=== PATIENT | male | born 1950 | race Caucasian/White ===

== ENCOUNTER → 2016-03-13 | Outpatient (CLI) | payer MEDICARE, MEDICAID ==
[2016-03-13 13:05] LABS: BASO % 0.6 % (0.0-1.0); EOS # 0.4 K/mm3 (0.0-0.50); EOS % 6.6 % (0.0-3.0); LARGE UNSTAINED CELL # 0.1 K/mm3 (0.0-0.4); LARGE UNSTAINED CELL % 2.2 % (0.0-4.0); LYMPH # 1.8 K/mm3 (1.5-4.5); MEAN CORPUSCULAR HEMOGLOBIN 26.5 pg (27.0-33.0); MEAN CORPUSCULAR HGB CONC 31.5 g/dl (32.0-36.5); MEAN CORPUSCULAR VOLUME 84.1 fl (80.0-96.0); MONO # 0.4 K/mm3 (0.0-0.8); MONO % 6.9 % (0.0-5.0); NEUTROPHILS # 3.5 K/mm3 (1.8-7.7); NEUTROPHILS % 56.6 % (36.0-66.0); PLATELET COUNT, AUTOMATED 204 k/mm3 (150-450); RED CELL DISTRIBUTION WIDTH 13.8 % (11.5-14.5); WHITE BLOOD COUNT 6.2 K/mm3 (4.0-10.0)
[2016-03-13 13:15] LABS: ALBUMIN 3.9 GM/DL (3.2-5.2); ALKALINE PHOSPHATASE 80 U/L (45-117); ALT/SGPT 35 U/L (12-78); ANION GAP 9 MEQ/L (8-16); AST/SGOT 23 U/L (15-37); BILIRUBIN,TOTAL 0.7 MG/DL (0.2-1.0); BLOOD UREA NITROGEN 9 MG/DL (7-18); CALCIUM LEVEL 8.7 MG/DL (8.8-10.2); CARBON DIOXIDE LEVEL 31 MEQ/L (21-32); CHLORIDE LEVEL 103 MEQ/L (98-107); CREATININE FOR GFR 1.02 MG/DL (0.70-1.30); FERRITIN 227 NG/ML (26-388); GLOMERULAR FILTRATION RATE > 60.0 (>49); GLUCOSE, FASTING 88 MG/DL (80-110); PERCENT SATURATION 30.7 % (19.7-37.4); POTASSIUM SERUM 4.7 MEQ/L (3.5-5.1); SODIUM LEVEL 143 MEQ/L (136-145); TOTAL IRON BINDING CAPACITY 316 UG/DL (250-450); TOTAL PROTEIN 6.5 GM/DL (6.4-8.2)
== END | disposition home or self-care (01) ==
LOC: M WUC 10:26
PROVIDERS: ATTEND Family Medicine
DX: N18.2 Chronic kidney disease, stage 2 (mild) (principal); Z12.5 Encounter for screening for malignant neoplasm of prostate; D50.9 Iron deficiency anemia, unspecified
CPT/HCPCS: 36415; 80053; 82728; 83550; 85025; G0103

== ENCOUNTER → 2016-05-01 | Outpatient (CLI) | payer MEDICARE, MEDICAID ==
[2016-05-01 13:22] LABS: ALBUMIN 3.8 GM/DL (3.2-5.2); ALBUMIN/GLOBULIN RATIO 1.36 (1.00-1.93); ALKALINE PHOSPHATASE 85 U/L (45-117); ALT/SGPT 36 U/L (12-78); ANION GAP 5 MEQ/L (8-16); AST/SGOT 23 U/L (15-37); BILIRUBIN,TOTAL 0.7 MG/DL (0.2-1.0); BLOOD UREA NITROGEN 18 MG/DL (7-18); CALCIUM LEVEL 9.1 MG/DL (8.8-10.2); CARBON DIOXIDE LEVEL 31 MEQ/L (21-32); CHLORIDE LEVEL 105 MEQ/L (98-107); CHOLESTEROL LEVEL 137 MG/DL (<200); CREATININE FOR GFR 1.25 MG/DL (0.70-1.30); FERRITIN 247 NG/ML (26-388); GLOMERULAR FILTRATION RATE > 60.0 (>49); GLUCOSE, FASTING 99 MG/DL (80-110); PERCENT SATURATION 29.6 % (19.7-37.4); POTASSIUM SERUM 4.6 MEQ/L (3.5-5.1); SODIUM LEVEL 141 MEQ/L (136-145); TOTAL IRON BINDING CAPACITY 311 UG/DL (250-450); TOTAL PROTEIN 6.6 GM/DL (6.4-8.2); TRIGLYCERIDES LEVEL 72 MG/DL (<150)
[2016-05-01 13:23] LABS: BASO % 0.4 % (0.0-1.0); EOS # 0.4 K/mm3 (0.0-0.50); EOS % 7.2 % (0.0-3.0); LARGE UNSTAINED CELL # 0.1 K/mm3 (0.0-0.4); LARGE UNSTAINED CELL % 1.9 % (0.0-4.0); LYMPH # 1.5 K/mm3 (1.5-4.5); LYMPH % 25.3 % (24.0-44.0); MEAN CORPUSCULAR HEMOGLOBIN 26.5 pg (27.0-33.0); MEAN CORPUSCULAR HGB CONC 31.1 g/dl (32.0-36.5); MEAN CORPUSCULAR VOLUME 85.3 fl (80.0-96.0); MONO # 0.4 K/mm3 (0.0-0.8); MONO % 7.2 % (0.0-5.0); NEUTROPHILS # 3.5 K/mm3 (1.8-7.7); PLATELET COUNT, AUTOMATED 242 k/mm3 (150-450); RED CELL DISTRIBUTION WIDTH 14.1 % (11.5-14.5); WHITE BLOOD COUNT 6.1 K/mm3 (4.0-10.0)
== END ==
LOC: M WUC 09:52
PROVIDERS: ATTEND Family Medicine
DX: D50.9 Iron deficiency anemia, unspecified (principal); I10 Essential (primary) hypertension; R73.01 Impaired fasting glucose; E55.9 Vitamin D deficiency, unspecified

== ENCOUNTER → 2016-05-12 | Outpatient (CLI) | payer MEDICARE, MEDICAID ==
--- NOTE | 2016-05-17 14:12 | SLEEPHOME ---
DATE OF PROCEDURE: 05/12/2016 ORDERING PROVIDER: Dr. Fitzgerald Diagnostic home sleep testing was performed for evaluation of sleep apnea syndrome symptoms. For testing, a NOX-T3 respiratory monitoring device was used. Continuous record was made of pulse oxygen saturation, airflow, chest and abdominal strain, and body position. 10 hours and 17 minutes of data were reviewed. Of these, 8 hours and 14 minutes were marked as time in bed. During the interval marked time in bed, there were 42 respiratory events identified of 10 seconds in duration or greater for a respiratory disturbance index of 5.1. The events identified were primarily obstructive. Baseline pulse rate 53. Pulse rate ranged 47 to 73. Baseline saturation was 89%. Lowest oxygen saturation was 82%. Testing was performed in both the supine and nonsupine positions. IMPRESSION: Abnormal home sleep testing with repetitive respiratory events and oxygen desaturations to 82% with a respiratory event index of 5.1 is consistent with the obstructive sleep apnea syndrome. RECOMMENDATION: The respiratory events identified were seen more frequently in the supine posture and sleep position retraining for avoidance of the supine posture would seem reasonable. If symptoms persist, referral back to the sleep disorder center for formal pressure titration should be considered.
== END ==
LOC: M SLEEP HO 05-10 13:05
PROVIDERS: ATTEND Family Medicine
DX: G47.9 Sleep disorder, unspecified (principal)

== ENCOUNTER → 2016-09-27 | Outpatient (CLI) | payer MEDICARE, MEDICAID ==
[~2016-09-27] MED LIST: AMLO10TA2 PO; ARTI99.0 OU; ATOR40TA75 PO; BENA40TA7 PO; BIMA01SOL OU; BRIMONIDINE 2% OU; CARA1TAB6 PO; DEXI60CA2 PO; ELIQ5TAB PO; FERR325T3 PO; FLEC50TA PO; FLUT22IN INH; FLUTISP; VENTAER IN; VITA100067 PO; ZETI10TA30 PO; [UNRECOGNIZED DRUG - OTHER] PO
[2016-09-27 14:09] LABS: BASO % 0.4 % (0.0-1.0); EOS # 0.4 K/mm3 (0.0-0.50); EOS % 7.1 % (0.0-3.0); LARGE UNSTAINED CELL # 0.1 K/mm3 (0.0-0.4); LARGE UNSTAINED CELL % 1.4 % (0.0-4.0); LYMPH # 1.5 K/mm3 (1.5-4.5); LYMPH % 23.9 % (24.0-44.0); MEAN CORPUSCULAR HEMOGLOBIN 27.2 pg (27.0-33.0); MEAN CORPUSCULAR HGB CONC 31.7 g/dl (32.0-36.5); MEAN CORPUSCULAR VOLUME 85.9 fl (80.0-96.0); MONO # 0.4 K/mm3 (0.0-0.8); MONO % 7.3 % (0.0-5.0); NEUTROPHILS # 3.6 K/mm3 (1.8-7.7); NEUTROPHILS % 59.7 % (36.0-66.0); PLATELET COUNT, AUTOMATED 233 k/mm3 (150-450); RED CELL DISTRIBUTION WIDTH 13.6 % (11.5-14.5)
[2016-09-27 14:47] LABS: ALBUMIN 3.6 GM/DL (3.2-5.2); ALBUMIN/GLOBULIN RATIO 1.29 (1.00-1.93); ALKALINE PHOSPHATASE 74 U/L (45-117); ALT/SGPT 26 U/L (12-78); ANION GAP 8 MEQ/L (8-16); AST/SGOT 19 U/L (15-37); BILIRUBIN,TOTAL 0.7 MG/DL (0.2-1.0); BLOOD UREA NITROGEN 10 MG/DL (7-18); CALCIUM LEVEL 8.4 MG/DL (8.8-10.2); CARBON DIOXIDE LEVEL 28 MEQ/L (21-32); CHLORIDE LEVEL 106 MEQ/L (98-107); CREATININE FOR GFR 0.96 MG/DL (0.70-1.30); FERRITIN 236 NG/ML (26-388); GLOMERULAR FILTRATION RATE > 60.0 (>49); GLUCOSE, FASTING 84 MG/DL (80-110); MAGNESIUM LEVEL 2.4 MG/DL (1.8-2.4); PERCENT SATURATION 31.1 % (19.7-50.0); POTASSIUM SERUM 4.4 MEQ/L (3.5-5.1); SODIUM LEVEL 142 MEQ/L (136-145); TOTAL IRON BINDING CAPACITY 286 UG/DL (250-450); TOTAL PROTEIN 6.4 GM/DL (6.4-8.2)
== END ==
LOC: M WUC 10:46
PROVIDERS: ATTEND Family Medicine
DX: D50.9 Iron deficiency anemia, unspecified (principal); I10 Essential (primary) hypertension

== ENCOUNTER → 2017-01-27 | Outpatient (CLI) | payer MEDICARE, MEDICAID ==
[2017-01-27 17:08] LABS: BASO # 0.1 10^3/uL (0.0-0.2); BASO % 0.8 % (0.0-1.0); EOS # 0.4 10^3/uL (0.0-0.50); EOS % 7.3 % (0.0-3.0); IMMATURE GRANULOCYTE % 0.3 % (0-0); LYMPH # 1.6 10^3/uL (1.5-4.5); LYMPH % 25.6 % (24.0-44.0); MEAN CORPUSCULAR HEMOGLOBIN 26.3 pg (27.0-33.0); MEAN CORPUSCULAR HGB CONC 31.3 g/dl (32.0-36.5); MEAN CORPUSCULAR VOLUME 84.1 fl (80.0-96.0); MONO # 0.7 10^3/uL (0.0-0.8); MONO % 11.2 % (0.0-5.0); NEUTROPHILS # 3.3 10^3/uL (1.8-7.7); NEUTROPHILS % 54.8 % (36.0-66.0); PLATELET COUNT, AUTOMATED 245 10^3/uL (150-450); WHITE BLOOD COUNT 6.1 10^3/uL (4.0-10.0)
[2017-01-27 17:21] LABS: ALBUMIN 3.8 GM/DL (3.2-5.2); ALBUMIN/GLOBULIN RATIO 1.41 (1.00-1.93); ALKALINE PHOSPHATASE 75 U/L (45-117); ALT/SGPT 33 U/L (12-78); ANION GAP 5 MEQ/L (8-16); AST/SGOT 23 U/L (7-37); BILIRUBIN,TOTAL 0.5 MG/DL (0.2-1.0); BLOOD UREA NITROGEN 12 MG/DL (7-18); CALCIUM LEVEL 8.4 MG/DL (8.8-10.2); CARBON DIOXIDE LEVEL 31 MEQ/L (21-32); CHLORIDE LEVEL 106 MEQ/L (98-107); CHOLESTEROL LEVEL 127 MG/DL (<200); CREATININE FOR GFR 0.97 MG/DL (0.70-1.30); FERRITIN 217 NG/ML (26-388); FREE T4 0.78 NG/DL (0.76-1.46); GLOMERULAR FILTRATION RATE > 60.0 (>49); GLUCOSE, FASTING 91 MG/DL (80-110); PERCENT SATURATION 33.6 % (19.7-50.0); POTASSIUM SERUM 4.7 MEQ/L (3.5-5.1); SODIUM LEVEL 142 MEQ/L (136-145); TOTAL IRON BINDING CAPACITY 298 UG/DL (250-450); TOTAL PROTEIN 6.5 GM/DL (6.4-8.2); TRIGLYCERIDES LEVEL 59 MG/DL (<150)
[2017-01-30 09:28] LABS: VITAMIN B12 LEVEL 378 PG/ML (247-911)
== END ==
LOC: M WUC 10:32
PROVIDERS: ATTEND Family Medicine
DX: D50.9 Iron deficiency anemia, unspecified (principal); E55.9 Vitamin D deficiency, unspecified; E78.5 Hyperlipidemia, unspecified

== ENCOUNTER → 2017-02-08 | Outpatient (REF) | payer MEDICARE, MEDICAID | LOC: M SFHCPLAZ 09:50 | DX: D50.9 Iron deficiency anemia, unspecified (principal); R73.01 Impaired fasting glucose; Z12.5 Encounter for screening for malignant neoplasm of prostate ==

== ENCOUNTER → 2017-02-14 | Outpatient (CLI) | payer MEDICARE, MEDICAID | LOC: M RAD 13:27 | DX: R51 Headache (principal); J32.9 Chronic sinusitis, unspecified; I73.9 Peripheral vascular disease, unspecified | CPT/HCPCS: 70450 ==

== ENCOUNTER → 2017-03-06 | Outpatient (CLI) | payer MEDICARE, MEDICAID ==
[2017-03-06 17:14] LABS: ALBUMIN 3.9 GM/DL (3.2-5.2); ALKALINE PHOSPHATASE 89 U/L (45-117); ALT/SGPT 34 U/L (12-78); ANION GAP 5 MEQ/L (8-16); AST/SGOT 26 U/L (7-37); BILIRUBIN,TOTAL 0.6 MG/DL (0.2-1.0); BLOOD UREA NITROGEN 13 MG/DL (7-18); CALCIUM LEVEL 8.5 MG/DL (8.8-10.2); CARBON DIOXIDE LEVEL 29 MEQ/L (21-32); CHLORIDE LEVEL 108 MEQ/L (98-107); CREATININE FOR GFR 0.98 MG/DL (0.70-1.30); FREE T4 0.89 NG/DL (0.76-1.46); GLOMERULAR FILTRATION RATE > 60.0 (>49); GLUCOSE, FASTING 93 MG/DL (70-100); MAGNESIUM LEVEL 2.3 MG/DL (1.8-2.4); POTASSIUM SERUM 4.3 MEQ/L (3.5-5.1); SODIUM LEVEL 142 MEQ/L (136-145); TOTAL PROTEIN 6.9 GM/DL (6.4-8.2)
[2017-03-06 17:26] LABS: INR 1.22; PROTHROMBIN TIME 15.6 SECONDS (12.4-14.5)
[2017-03-06 17:27] LABS: PARTIAL THROMBOPLASTIN TIME 36.5 SECONDS (26.8-37.9)
[2017-03-06 17:52] LABS: BASO # 0.1 10^3/uL (0.0-0.2); BASO % 0.7 % (0.0-1.0); EOS # 0.5 10^3/uL (0.0-0.50); EOS % 6.6 % (0.0-3.0); HEMOGLOBIN 13.8 g/dl (14.0-18.0); IMMATURE GRANULOCYTE % 0.1 % (0-0); LYMPH # 1.6 10^3/uL (1.5-4.5); LYMPH % 22.3 % (24.0-44.0); MEAN CORPUSCULAR HEMOGLOBIN 26.6 pg (27.0-33.0); MEAN CORPUSCULAR HGB CONC 31.4 g/dl (32.0-36.5); MEAN CORPUSCULAR VOLUME 84.9 fl (80.0-96.0); MONO # 0.8 10^3/uL (0.0-0.8); MONO % 10.5 % (0.0-5.0); NEUTROPHILS # 4.3 10^3/uL (1.8-7.7); NEUTROPHILS % 59.8 % (36.0-66.0); PLATELET COUNT, AUTOMATED 240 10^3/uL (150-450); RED BLOOD COUNT 5.18 10^6/uL (4.30-6.10); RED CELL DISTRIBUTION WIDTH 14.6 % (11.5-14.5); WHITE BLOOD COUNT 7.3 10^3/uL (4.0-10.0)
== END ==
LOC: M WUC 11:46
DX: Z01.818 Encounter for other preprocedural examination (principal); Z79.01 Long term (current) use of anticoagulants; E03.9 Hypothyroidism, unspecified
CPT/HCPCS: 83735

== ENCOUNTER 2017-03-14 09:31 | Day surgery (SDC) | payer MEDICARE, MEDICAID ==
[~2017-03-14 09:31] MED LIST changes: +ACETAMINOPHEN 325 MG TAB PO; -AMLO10TA2 PO; -ARTI99.0 OU; -ATOR40TA75 PO; -BENA40TA7 PO; -BIMA01SOL OU; -BRIMONIDINE 2% OU; -CARA1TAB6 PO; -DEXI60CA2 PO; -ELIQ5TAB PO; -FERR325T3 PO; -FLEC50TA PO; -FLUT22IN INH; -FLUTISP; +MIDAZOLAM INJ 2 MG/2 ML VIAL (J2250) As Ordered; +PROPARACAINE 0.5% OPHTH SOL 15ML OS; -VENTAER IN; -VITA100067 PO; -ZETI10TA30 PO; -[UNRECOGNIZED DRUG - OTHER] PO; +fentaNYL 100 MCG/2 ML INJECTION (J3010) As Ordered
[2017-03-14] MEDS ORDERED: LIDOCAINE 1% MDV 20ML VIAL SQ ×2 (09:45)
[2017-03-14] MEDS ORDERED: OFLOXACIN 0.3 % (OCUFLOX) OPTH SOL 5ML As Ordered ×2 (09:59)
[2017-03-14] MEDS ORDERED: TROPICAMIDE 1% OPHTH SOLN 2ML As Ordered ×2 (09:59)
[2017-03-14] MEDS ORDERED: PHENYLEPHRINE 2.5% OPHTH SOL 2ML As Ordered ×2 (09:59)
[2017-03-14] MEDS ORDERED: CYCLOPENTOLATE 2% OPHTH SOLN 2ML BTL As Ordered ×2 (09:59)
[2017-03-14] MEDS: LIDOCAINE 3.5 % 1ML OPHTH TOPICAL GEL OU ×2 (10:10)
[2017-03-14] MEDS: OFLOXACIN 0.3 % (OCUFLOX) OPTH SOL 5ML OS ×2 (10:13)
[2017-03-14] MEDS: CYCLOPENTOLATE 2% OPHTH SOLN 2ML BTL OS ×2 (10:13)
[2017-03-14] MEDS: PHENYLEPHRINE 2.5% OPHTH SOL 2ML OS ×2 (10:13)
[2017-03-14] MEDS: TROPICAMIDE 1% OPHTH SOLN 2ML OS ×2 (10:13)
[2017-03-14] MEDS: PHENYLEPHRINE HCL 10 % OPHTH. SOL 5ML OS ×2 (10:50)
[2017-03-14 10:53] LABS: BEDSIDE GLUCOSE 88 MG/DL (80-115)
[2017-03-14] MEDS: POVIDONE-IODINE 5% OPHTH PREP SOL 30ML As Ordered ×2 (11:56)
[2017-03-14] MEDS: LIDOCAINE 1% SDV 5 ML VIAL As Ordered ×2 (11:57)
[2017-03-14] MEDS: ACETYLCHOLINE OPHTH SOLN 1% 2ML (MIOCHOL-E) As Ordered ×2 (11:57)
[2017-03-14] MEDS: CEFUROXIME 1MG/0.1ML INTRACAMERAL INJ As Ordered ×2 (11:57)
[2017-03-14] MEDS: BSS with VANC/TOB/EPI for EYE CASES IR ×2 (11:57)
[2017-03-14] MEDS: HEALON DUET (HEALON 10MG/ML 0.55ML & HEALON ENDOCOAT 30MG/ML 0.85ML) As Ordered ×2 (11:57)
[2017-03-14] MEDS ORDERED: ONDANSETRON 4MG/2ML VIAL (J2405) As Ordered ×2 (12:08)
[2017-03-14] MEDS ORDERED: dexameTHASONE 4 MG/ML 1ML VIAL (J1100) As Ordered ×2 (12:08)
[2017-03-14] MEDS ORDERED: METOCLOPRAMIDE INJ 10MG/2ML VIAL (J2765) As Ordered ×2 (12:08)
[2017-03-14] MEDS ORDERED: TRIMETHOBENZAMIDE 300 MG CAP PO ×2 (12:45)
[2017-03-14 13:04] LABS: BEDSIDE GLUCOSE 101 MG/DL (80-115)
[2017-03-14] MEDS: KETOROLAC 0.5% OPHTH SOLN OS ×2 (13:10)
== END 2017-03-14 14:00 | disposition home or self-care (01) ==
LOC: M SDC 09:31
DX: H26.9 Unspecified cataract (principal); H57.03 Miosis; H40.9 Unspecified glaucoma; R00.2 Palpitations; I12.9 Hypertensive chronic kidney disease with stage 1 through stage 4 chronic kidney disease, or unspecified chronic kidney disease; I48.91 Unspecified atrial fibrillation; G25.0 Essential tremor; E55.9 Vitamin D deficiency, unspecified; E78.5 Hyperlipidemia, unspecified; R00.1 Bradycardia, unspecified; E11.9 Type 2 diabetes mellitus without complications; K21.9 Gastro-esophageal reflux disease without esophagitis; D50.9 Iron deficiency anemia, unspecified; M12.9 Arthropathy, unspecified; M50.20 Other cervical disc displacement, unspecified cervical region; M51.26 Other intervertebral disc displacement, lumbar region; R51 Headache; J44.9 Chronic obstructive pulmonary disease, unspecified; G47.30 Sleep apnea, unspecified; N40.1 Benign prostatic hyperplasia with lower urinary tract symptoms; N28.1 Cyst of kidney, acquired; J30.89 Other allergic rhinitis; N18.2 Chronic kidney disease, stage 2 (mild); T88.59XD Other complications of anesthesia, subsequent encounter; J32.9 Chronic sinusitis, unspecified; L30.9 Dermatitis, unspecified; Z88.2 Allergy status to sulfonamides; Z88.5 Allergy status to narcotic agent; Z88.8 Allergy status to other drugs, medicaments and biological substances; Z91.018 Allergy to other foods; Z79.899 Other long term (current) drug therapy; Z79.01 Long term (current) use of anticoagulants; Z87.891 Personal history of nicotine dependence
CPT/HCPCS: 66982

== ENCOUNTER → 2017-06-07 | Outpatient (CLI) | payer MEDICARE, MEDICAID ==
[2017-06-07 13:34] LABS: BASO # 0.1 10^3/uL (0.0-0.2); BASO % 0.9 % (0.0-1.0); EOS # 0.4 10^3/uL (0.0-0.50); EOS % 8.2 % (0.0-3.0); HEMATOCRIT 40.6 % (42.0-52.0); HEMOGLOBIN 12.8 g/dl (13.5-17.5); IMMATURE GRANULOCYTE % 0.2 % (0-3.0); LYMPH # 1.4 10^3/uL (1.5-4.5); LYMPH % 27.3 % (24.0-44.0); MEAN CORPUSCULAR HEMOGLOBIN 26.8 pg (27.0-33.0); MEAN CORPUSCULAR HGB CONC 31.5 g/dl (32.0-36.5); MEAN CORPUSCULAR VOLUME 84.9 fl (80.0-96.0); MONO # 0.7 10^3/uL (0.0-0.8); MONO % 12.5 % (0.0-5.0); NEUTROPHILS # 2.7 10^3/uL (1.8-7.7); NEUTROPHILS % 50.9 % (36.0-66.0); PLATELET COUNT, AUTOMATED 220 10^3/uL (150-450); RED BLOOD COUNT 4.78 10^6/uL (4.30-6.10); RED CELL DISTRIBUTION WIDTH 14.3 % (11.5-14.5); RETIC HEMOGLOBIN EQUIVALENT 30.3 pg (24-36); RETICULOCYTE # 55.9 10^9/L (17-77); RETICULOCYTE % 1.2 % (0.5-1.5); WHITE BLOOD COUNT 5.3 10^3/uL (4.0-10.0)
[2017-06-07 14:15] LABS: ALBUMIN 3.6 GM/DL (3.2-5.2); ALBUMIN/GLOBULIN RATIO 1.24 (1.00-1.93); ALKALINE PHOSPHATASE 82 U/L (45-117); ALT/SGPT 25 U/L (12-78); ANION GAP 4 MEQ/L (8-16); AST/SGOT 19 U/L (7-37); BILIRUBIN,TOTAL 0.6 MG/DL (0.2-1.0); BLOOD UREA NITROGEN 16 MG/DL (7-18); CALCIUM LEVEL 8.4 MG/DL (8.8-10.2); CARBON DIOXIDE LEVEL 29 MEQ/L (21-32); CHLORIDE LEVEL 108 MEQ/L (98-107); CREATININE FOR GFR 0.98 MG/DL (0.70-1.30); GLOMERULAR FILTRATION RATE > 60.0 (>49); GLUCOSE, FASTING 96 MG/DL (70-100); MAGNESIUM LEVEL 2.2 MG/DL (1.8-2.4); POTASSIUM SERUM 4.4 MEQ/L (3.5-5.1); PSA SCREENING 2.31 NG/ML (< 4.0); SODIUM LEVEL 141 MEQ/L (136-145); TOTAL PROTEIN 6.5 GM/DL (6.4-8.2)
[2017-06-07 14:16] LABS: ESTIMATED AVERAGE GLUCOSE 117 MG/DL (60-110); HEMOGLOBIN A1c 5.7 %
[2017-06-08 14:13] LABS: INSULIN LEVEL 6.5 uIU/mL (2.6-24.9)
== END ==
LOC: M WUC 10:13
DX: D50.9 Iron deficiency anemia, unspecified (principal); R73.01 Impaired fasting glucose; Z12.5 Encounter for screening for malignant neoplasm of prostate
CPT/HCPCS: 83525

== ENCOUNTER → 2017-08-28 | Outpatient (CLI) | payer MEDICARE, MEDICAID ==
[2017-08-28 12:09] LABS: BASO % 0.6 % (0.0-1.0); EOS # 0.5 10^3/uL (0.0-0.50); EOS % 7.3 % (0.0-3.0); HEMATOCRIT 42.7 % (42.0-52.0); HEMOGLOBIN 13.3 g/dl (13.5-17.5); IMMATURE GRANULOCYTE % 0.2 % (0-3.0); LYMPH # 1.4 10^3/uL (1.5-4.5); LYMPH % 23.2 % (24.0-44.0); MEAN CORPUSCULAR HEMOGLOBIN 26.8 pg (27.0-33.0); MEAN CORPUSCULAR HGB CONC 31.1 g/dl (32.0-36.5); MEAN CORPUSCULAR VOLUME 85.9 fl (80.0-96.0); MONO # 0.8 10^3/uL (0.0-0.8); MONO % 12.3 % (0.0-5.0); NEUTROPHILS # 3.5 10^3/uL (1.8-7.7); NEUTROPHILS % 56.4 % (36.0-66.0); PLATELET COUNT, AUTOMATED 250 10^3/uL (150-450); RED BLOOD COUNT 4.97 10^6/uL (4.30-6.10); RED CELL DISTRIBUTION WIDTH 14.4 % (11.5-14.5); RETIC HEMOGLOBIN EQUIVALENT 30.9 pg (24-36); RETICULOCYTE # 56.2 10^9/L (17-77); RETICULOCYTE % 1.1 % (0.5-1.5); WHITE BLOOD COUNT 6.2 10^3/uL (4.0-10.0)
[2017-08-28 13:11] LABS: ALBUMIN 3.5 GM/DL (3.2-5.2); ALBUMIN/GLOBULIN RATIO 1.25 (1.00-1.93); ALKALINE PHOSPHATASE 89 U/L (45-117); ALT/SGPT 28 U/L (12-78); ANION GAP 7 MEQ/L (8-16); AST/SGOT 14 U/L (7-37); BILIRUBIN,TOTAL 0.5 MG/DL (0.2-1.0); BLOOD UREA NITROGEN 12 MG/DL (7-18); C REACTIVE PROTEIN QUANTITATIV < 0.30 MG/DL (0.00-0.30); CALCIUM LEVEL 8.6 MG/DL (8.8-10.2); CARBON DIOXIDE LEVEL 30 MEQ/L (21-32); CHLORIDE LEVEL 108 MEQ/L (98-107); CHOLESTEROL LEVEL 120 MG/DL (<200); CPK CREATINE PHOSPHOKINASE 109 U/L (39-308); CREATININE FOR GFR 1.11 MG/DL (0.70-1.30); FREE T4 0.76 NG/DL (0.76-1.46); GLOMERULAR FILTRATION RATE > 60.0 (>49); GLUCOSE, FASTING 84 MG/DL (70-100); HDL CHOLESTEROL 60 MG/DL (>40); LDL CHOLESTEROL 48.2 MG/DL (<100); NON-HDL-C 60 MG/DL; POTASSIUM SERUM 4.3 MEQ/L (3.5-5.1); SODIUM LEVEL 145 MEQ/L (136-145); TOTAL PROTEIN 6.3 GM/DL (6.4-8.2); TRIGLYCERIDES LEVEL 59 MG/DL (<150)
== END ==
LOC: M WUC 10:21
DX: D50.9 Iron deficiency anemia, unspecified (principal); E78.5 Hyperlipidemia, unspecified; I10 Essential (primary) hypertension
CPT/HCPCS: 82550

== ENCOUNTER → 2017-12-21 | Outpatient (CLI) | payer MEDICARE, MEDICAID ==
[2017-12-21 13:08] LABS: BASO % 0.6 % (0.0-1.0); EOS # 0.4 10^3/uL (0.0-0.50); EOS % 5.9 % (0.0-3.0); HEMATOCRIT 46.3 % (42.0-52.0); HEMOGLOBIN 14.5 g/dl (13.5-17.5); IMMATURE GRANULOCYTE % 0.3 % (0-3.0); LYMPH # 1.5 10^3/uL (1.5-4.5); LYMPH % 21.1 % (24.0-44.0); MEAN CORPUSCULAR HEMOGLOBIN 26.7 pg (27.0-33.0); MEAN CORPUSCULAR HGB CONC 31.3 g/dl (32.0-36.5); MEAN CORPUSCULAR VOLUME 85.3 fl (80.0-96.0); MONO # 0.6 10^3/uL (0.0-0.8); MONO % 8.5 % (0.0-5.0); NEUTROPHILS # 4.4 10^3/uL (1.8-7.7); NEUTROPHILS % 63.6 % (36.0-66.0); PLATELET COUNT, AUTOMATED 245 10^3/uL (150-450); RED BLOOD COUNT 5.43 10^6/uL (4.30-6.10); RED CELL DISTRIBUTION WIDTH 14.3 % (11.5-14.5); WHITE BLOOD COUNT 6.9 10^3/uL (4.0-10.0)
[2017-12-21 13:29] LABS: C REACTIVE PROTEIN QUANTITATIV < 0.30 MG/DL (0.00-0.30); RHEUMATOID FACTOR QUANT < 10.0 IU/ML (<15.0)
[2017-12-21 13:55] LABS: ERYTHROCYTE SEDIMENTATION RATE 3 mm/hr (0-20)
[2018-01-03 14:20] LABS: ANCA-ATYPICAL <1:20 titer (Neg:<1:20); ANGIOTENSIN 1 CONVERTING ENZYM 5 U/L (14-82); ANTINUCLEAR ANTIBODIES DIRECT Negative (Negative); CYTOPLASMIC NEUTROP AB ANCA-C <1:20 titer (Neg:<1:20); HLA-B27 Negative (.); Lyme Disease IgG/IgM Antibodie <0.91 ISR (0.00-0.90); Lyme Disease IgM Ab Quantitati <0.80 index (0.00-0.79); PERINUCLEAR AB ANCA-P <1:20 titer (Neg:<1:20); T PALLIDUM AB (FTA-AB) Non Reactive (Non Reactive); TREPONEMA ANTIBODY IgM <= 1.1 I.V. (.)
== END ==
LOC: M WUC 11:00
DX: H20.9 Unspecified iridocyclitis (principal)
CPT/HCPCS: 82164

== ENCOUNTER → 2018-01-14 | Outpatient (CLI) | payer MEDICARE, MEDICAID ==
[2018-01-14 16:53] LABS: APPEARANCE, URINE CLEAR (CLEAR); BACTERIA, URINE AUTO NEGATIVE (NEGATIVE); BILIRUBIN, URINE AUTO NEGATIVE (NEGATIVE); BLOOD, URINE BLOOD 1+ (NEGATIVE); COLOR, URINE COLORLESS (YELLOW); GLUCOSE, URINE (UA) AUTO NEGATIVE (NEGATIVE); KETONE, URINE AUTO NEGATIVE (NEGATIVE); LEUKOCYTE ESTERASE, URINE AUTO NEGATIVE (NEGATIVE); NITRITE, URINE AUTO NEGATIVE (NEGATIVE); PROTEIN, URINE AUTO NEGATIVE (NEGATIVE); RBC, URINE AUTO 0 /HPF (0-3); SPECIFIC GRAVITY URINE AUTO 1.001 (1.002-1.035); SQUAMOUS EPITHELIAL CELL UR AU 0 /HPF (0-6); UROBILINOGEN, URINE AUTO 0.2 mg/dL (0.0-2.0); WBC, URINE AUTO 0 /HPF (0-3)
[2018-01-14 17:08] LABS: CREATININE, URINE < 13.0 MG/DL; MALB URINE SIEMENS < 5.0 MG/L
[2018-01-14 17:38] LABS: ALBUMIN/GLOBULIN RATIO 1.38 (1.00-1.93); ALKALINE PHOSPHATASE 86 U/L (45-117); ALT/SGPT 38 U/L (12-78); ANION GAP 6 MEQ/L (8-16); AST/SGOT 26 U/L (7-37); BILIRUBIN,TOTAL 0.6 MG/DL (0.2-1.0); BLOOD UREA NITROGEN 10 MG/DL (7-18); CALCIUM LEVEL 8.9 MG/DL (8.8-10.2); CARBON DIOXIDE LEVEL 30 MEQ/L (21-32); CHLORIDE LEVEL 104 MEQ/L (98-107); CREATININE FOR GFR 1.06 MG/DL (0.70-1.30); GLOMERULAR FILTRATION RATE > 60.0 (>49); GLUCOSE, FASTING 92 MG/DL (70-100); POTASSIUM SERUM 4.7 MEQ/L (3.5-5.1); PSA SCREENING 2.9 NG/ML (< 4.0); SODIUM LEVEL 140 MEQ/L (136-145); TOTAL PROTEIN 6.9 GM/DL (6.4-8.2)
[2018-01-14 17:44] LABS: TOTAL 25(OH) VITAMIN D 26.3 NG/ML (30.0-100.0)
[2018-01-14 17:45] LABS: PTH INTACT 47.1 PG/ML (18.5-88.0)
[2018-01-14 18:06] LABS: ESTIMATED AVERAGE GLUCOSE 134 MG/DL (60-110); HEMOGLOBIN A1c 6.3 %
[2018-01-16 14:21] LABS: INSULIN LEVEL 5.8 uIU/mL (2.6-24.9)
== END ==
LOC: M WUC 14:15
DX: R73.01 Impaired fasting glucose (principal); N18.2 Chronic kidney disease, stage 2 (mild); Z12.5 Encounter for screening for malignant neoplasm of prostate
CPT/HCPCS: 83525

== ENCOUNTER → 2018-04-12 | Outpatient (CLI) | payer MEDICARE, MEDICAID ==
[~2018-04-12] MED LIST changes: -ACETAMINOPHEN 325 MG TAB PO; +AMLO10TA5 PO; +ARTI99.0 OU; +ATOR40TA75 PO; +BENA40TA7 PO; +BIMA01SOL OU; +BRIMONIDINE 2% OU; +CARA1TAB6 PO; +DEXI60CA2 PO; +ELIQ5TAB PO; +FERR325T3 PO; +FLEC50HA PO; +FLUT22IN INH; +FLUTISP; -MIDAZOLAM INJ 2 MG/2 ML VIAL (J2250) As Ordered; -PROPARACAINE 0.5% OPHTH SOL 15ML OS; +VENTAER IN; +VITA100067 PO; +ZETI10TA30 PO; +[UNRECOGNIZED DRUG - OTHER] PO; -fentaNYL 100 MCG/2 ML INJECTION (J3010) As Ordered
--- NOTE | 2018-04-17 07:02 | SLEEPCENT ---
DATE OF PROCEDURE: 04/12/2018 ORDERED BY: Praful Rebolledo. Nocturnal polysomnography was performed for evaluation of sleep physiology in this patient with a history of excessive somnolence, morning headaches and nonrestorative sleep with comorbidities of hypertension and atrial fibrillation. 7 hours and 37 minutes of data were reviewed. There 343 of sleep identified. Sleep latency was normal at 26 minutes. REM latency was normal at 75 minutes. Sleep architecture was fair but there was a period of wake between 02:45 and 04:00 a.m. resulting in sleep efficiency of 76%. Two REM cycles were seen. REM times remained slightly less than predicted. The electrocardiogram showed what appeared to be sinus rhythm with an average heart rate of 50 beats per minute. Rate ranged 45-70. EEG showed normal waveforms for awake and sleep. There were 31 respiratory events identified of 10 seconds in duration or greater for an apnea-hypopnea index of 5.3 events seen were obstructive not exclusive to sleep stage, more frequent in the supine posture. Arousals from respiratory events occurred 1.2 times per hour and oxygen desaturations were seen into the 80s. There was limited limb activity and remaining measures of sleep physiology were normal. IMPRESSION: Mild positional obstructive sleep apnea syndrome (G4 7.33) RECOMMENDATIONS: Sleep position retraining for avoidance of the supine posture may be sufficient. Should the patient's sleep symptoms persist, referral back to sleep disorder center for pressure therapy could be considered.
== END ==
LOC: M SLEEP 19:15
PROVIDERS: ATTEND Physician Assistant
DX: G47.33 Obstructive sleep apnea (adult) (pediatric) (principal)

== ENCOUNTER → 2018-06-19 | Outpatient (CLI) | payer MEDICARE, MEDICAID ==
[2018-06-19 12:46] LABS: BASO # 0.1 10^3/uL (0.0-0.2); BASO % 0.7 % (0.0-1.0); EOS # 0.4 10^3/uL (0.0-0.50); EOS % 6.3 % (0.0-3.0); HEMOGLOBIN 13.7 g/dl (13.5-17.5); LYMPH # 1.5 10^3/uL (1.5-4.5); LYMPH % 22.2 % (24.0-44.0); MEAN CORPUSCULAR HEMOGLOBIN 26.9 pg (27.0-33.0); MEAN CORPUSCULAR HGB CONC 31.1 g/dl (32.0-36.5); MEAN CORPUSCULAR VOLUME 86.4 fl (80.0-96.0); MONO # 0.7 10^3/uL (0.0-0.8); MONO % 10.5 % (0.0-5.0); NEUTROPHILS # 4.2 10^3/uL (1.8-7.7); NEUTROPHILS % 60.2 % (36.0-66.0); PLATELET COUNT, AUTOMATED 233 10^3/uL (150-450); RED BLOOD COUNT 5.09 10^6/uL (4.30-6.10); WHITE BLOOD COUNT 6.9 10^3/uL (4.0-10.0)
[2018-06-19 12:50] LABS: ALBUMIN 3.9 GM/DL (3.2-5.2); ALT/SGPT 24 U/L (12-78); BILIRUBIN,TOTAL 0.8 MG/DL (0.2-1.0); BLOOD UREA NITROGEN 15 MG/DL (7-18); CALCIUM LEVEL 9.1 MG/DL (8.8-10.2); CARBON DIOXIDE LEVEL 28 MEQ/L (21-32); CHLORIDE LEVEL 107 MEQ/L (98-107); CREATININE FOR GFR 1.08 MG/DL (0.70-1.30); GLOMERULAR FILTRATION RATE > 60.0 (>42); GLUCOSE, FASTING 84 MG/DL (70-100); PHENOBARBITAL LEVEL 2.1 UG/ML (15.0-40.0); POTASSIUM SERUM 4.4 MEQ/L (3.5-5.1); SODIUM LEVEL 139 MEQ/L (136-145); TOTAL PROTEIN 6.5 GM/DL (6.4-8.2)
[2018-06-19 12:57] LABS: VITAMIN B12 LEVEL 290 PG/ML (247-911)
[2018-06-19 13:39] LABS: HEMOGLOBIN A1c 5.9 %
== END ==
LOC: M WUC 10:24
PROVIDERS: ATTEND Family Medicine
DX: D50.9 Iron deficiency anemia, unspecified (principal); E55.9 Vitamin D deficiency, unspecified; R73.01 Impaired fasting glucose

== ENCOUNTER → 2018-07-17 | Outpatient (REF) | payer MEDICARE, MEDICAID ==
[2018-07-17 16:05] LABS: BASO % 0.4 % (0.0-1.0); EOS # 0.4 10^3/uL (0.0-0.50); EOS % 3.9 % (0.0-3.0); HEMATOCRIT 39.7 % (42.0-52.0); HEMOGLOBIN 12.5 g/dl (13.5-17.5); LYMPH # 1.3 10^3/uL (1.5-4.5); LYMPH % 12.4 % (24.0-44.0); MEAN CORPUSCULAR HEMOGLOBIN 26.9 pg (27.0-33.0); MEAN CORPUSCULAR HGB CONC 31.5 g/dl (32.0-36.5); MEAN CORPUSCULAR VOLUME 85.4 fl (80.0-96.0); MONO # 1.2 10^3/uL (0.0-0.8); MONO % 11.3 % (0.0-5.0); NEUTROPHILS # 7.6 10^3/uL (1.8-7.7); NEUTROPHILS % 71.5 % (36.0-66.0); PLATELET COUNT, AUTOMATED 358 10^3/uL (150-450); RED BLOOD COUNT 4.65 10^6/uL (4.30-6.10); WHITE BLOOD COUNT 10.7 10^3/uL (4.0-10.0)
[2018-07-17 16:11] LABS: ALBUMIN 2.9 GM/DL (3.2-5.2); ALT/SGPT 18 U/L (12-78); BILIRUBIN,TOTAL 0.5 MG/DL (0.2-1.0); BLOOD UREA NITROGEN 16 MG/DL (7-18); CALCIUM LEVEL 8.8 MG/DL (8.8-10.2); CARBON DIOXIDE LEVEL 29 MEQ/L (21-32); CHLORIDE LEVEL 107 MEQ/L (98-107); CREATININE FOR GFR 1.23 MG/DL (0.70-1.30); GLOMERULAR FILTRATION RATE > 60.0 (>42); GLUCOSE, FASTING 119 MG/DL (70-100); POTASSIUM SERUM 3.7 MEQ/L (3.5-5.1); SODIUM LEVEL 141 MEQ/L (136-145); TOTAL PROTEIN 6.5 GM/DL (6.4-8.2)
[2018-07-17 16:20] LABS: APPEARANCE, URINE HAZY (CLEAR); BACTERIA, URINE AUTO NEGATIVE (NEGATIVE); BILIRUBIN, URINE AUTO 2+ (NEGATIVE); BLOOD, URINE BLOOD NEGATIVE (NEGATIVE); COLOR, URINE AMBER (YELLOW); GLUCOSE, URINE (UA) AUTO NEGATIVE (NEGATIVE); KETONE, URINE AUTO NEGATIVE (NEGATIVE); LEUKOCYTE ESTERASE, URINE AUTO NEGATIVE (NEGATIVE); MUCUS, URINE SMALL (NEGATIVE); NITRITE, URINE AUTO NEGATIVE (NEGATIVE); PROTEIN, URINE AUTO 1+ mg/dL (NEGATIVE); RBC, URINE AUTO 3 /HPF (0-3); SPECIFIC GRAVITY URINE AUTO 1.033 (1.002-1.035); SQUAMOUS EPITHELIAL CELL UR AU 0 /HPF (0-6); WBC, URINE AUTO 3 /HPF (0-3)
== END ==
LOC: M SFHCPLAZ 13:35
PROVIDERS: ATTEND Nurse Practitioner Family
DX: R10.9 Unspecified abdominal pain (principal); R61 Generalized hyperhidrosis
CPT/HCPCS: 36415; 71046; 80053; 81001; 85025; 87086; G0463

== ENCOUNTER → 2018-07-17 | Outpatient (CLI) | payer MEDICARE, MEDICAID ==
--- NOTE | 2018-07-17 14:31 | REP ---
Chest two views HISTORY: Meniscus Comparison: 12/13/2016 Patchy density is present in the lingula consistent with an infiltrate. The right lung is clear. The heart is normal in size. The pulmonary vasculature is normal in appearance. The bony structure is intact. IMPRESSION: Lingular infiltrate. Electronically Signed by Rinku Ray MD 07/17/2018 02:22 P
== END ==
LOC: M SMT 14:13
PROVIDERS: ATTEND Nurse Practitioner Family
DX: R91.8 Other nonspecific abnormal finding of lung field (principal); R61 Generalized hyperhidrosis

== ENCOUNTER → 2018-07-25 | Outpatient (CLI) | payer MEDICARE, MEDICAID ==
--- NOTE | 2018-07-25 14:19 | REP ---
REASON: Followup pneumonia. The patchy opacities seen previously in the lingula have improved. There are no new abnormal opacities. The pleural angles are again seen to be sharp. The osseous structures are stable and intact. The heart is not enlarged. IMPRESSION: Improved lingular pneumonia. Electronically Signed by Kvng Sharma DO 07/25/2018 03:03 P
== END ==
LOC: M SMT 13:46
PROVIDERS: ATTEND Physician Assistant Medical
DX: J18.1 Lobar pneumonia, unspecified organism (principal)

== ENCOUNTER → 2018-11-26 | Outpatient (CLI) | payer MEDICARE, MEDICAID ==
[~2018-11-26] MED LIST changes: -ARTI99.0 OU; +ARTIDRO2 OU; +ZETI10TA16 PO; -ZETI10TA30 PO
[2018-11-26 12:40] LABS: BASO % 0.7 % (0.0-1.0); EOS # 0.4 10^3/uL (0.0-0.5); EOS % 6.8 % (0.0-3.0); HEMATOCRIT 42.3 % (42.0-52.0); HEMOGLOBIN 13.1 g/dl (13.5-17.5); LYMPH % 37.2 % (24.0-44.0); MEAN CORPUSCULAR HEMOGLOBIN 26.9 pg (27.0-33.0); MEAN CORPUSCULAR VOLUME 86.9 fl (80.0-96.0); MONO # 0.6 10^3/uL (0.0-0.8); MONO % 11.7 % (0.0-5.0); NEUTROPHILS # 2.4 10^3/uL (1.5-8.5); NEUTROPHILS % 43.4 % (36.0-66.0); PLATELET COUNT, AUTOMATED 230 10^3/uL (150-450); RED BLOOD COUNT 4.87 10^6/uL (4.30-6.10); WHITE BLOOD COUNT 5.5 10^3/uL (4.0-10.0)
[2018-11-26 12:48] LABS: HEMATOCRIT 44.8 % (42.0-52.0)
[2018-11-26 12:54] LABS: ALBUMIN 3.4 GM/DL (3.2-5.2); ALT/SGPT 31 U/L (12-78); BILIRUBIN,TOTAL 0.7 MG/DL (0.2-1.0); BLOOD UREA NITROGEN 10 MG/DL (7-18); CALCIUM LEVEL 8.7 MG/DL (8.8-10.2); CARBON DIOXIDE LEVEL 29 MEQ/L (21-32); CHLORIDE LEVEL 108 MEQ/L (98-107); CHOLESTEROL LEVEL 122 MG/DL (<200); CHOLESTEROL RISK RATIO 1.794 (<5); CREATININE FOR GFR 1.01 MG/DL (0.70-1.30); FREE T4 0.75 NG/DL (0.76-1.46); GLOMERULAR FILTRATION RATE > 60.0 (>42); GLUCOSE, FASTING 87 MG/DL (70-100); HDL CHOLESTEROL 68 MG/DL (>40); LDL CHOLESTEROL 41 MG/DL (<100); NON-HDL-C 54 MG/DL; SODIUM LEVEL 143 MEQ/L (136-145); TOTAL PROTEIN 5.8 GM/DL (6.4-8.2); TRIGLYCERIDES LEVEL 66 MG/DL (<150)
[2018-11-26 12:57] LABS: PTH INTACT 30.8 PG/ML (18.5-88.0); TOTAL 25(OH) VITAMIN D 42.5 NG/ML (30.0-100.0); VITAMIN B12 LEVEL 586 PG/ML (247-911)
== END ==
LOC: M WUC 09:12
PROVIDERS: ATTEND Family Medicine
DX: E53.8 Deficiency of other specified B group vitamins (principal); N18.2 Chronic kidney disease, stage 2 (mild); E78.5 Hyperlipidemia, unspecified

== ENCOUNTER → 2018-12-12 | Outpatient (CLI) | payer MEDICARE, MEDICAID ==
--- NOTE | 2018-12-12 15:48 | REP ---
CT brain: 12/12/2018. Indication: Headache. Comparison: 02/14/2017. Technique: Unenhanced axial CT images of the brain were obtained from skull base to vertex. Findings: There is no acute intracranial hemorrhage, acute cortical infarction, mass effect, hydrocephalus or significant fluid within the visualized paranasal sinuses/mastoid air cells. Periosteal mucosal thickening is noted within the right greater than left visualized ethmoid air cells. Impression: No acute intracranial process. Electronically Signed by Carlos Lechuga DO 12/12/2018 03:40 P
== END ==
LOC: M RAD 15:14
PROVIDERS: ATTEND Family Medicine
DX: R51 Headache (principal)

== ENCOUNTER → 2018-12-13 | Outpatient (CLI) | payer MEDICARE, MEDICAID ==
--- NOTE | 2018-12-13 12:55 | REP ---
Chest x-ray: Two views. History: Cough . Comparison study: July 25, 2018 . Findings: The lungs are well inflated and free of infiltrate. The infiltrate noted in the lingula on July 25, 2018 has resolved. The pleural angles are sharp. The heart size is normal. Pulmonary vasculature is not increased. No significant bony abnormality is seen. Impression: Negative chest x-ray. Electronically Signed by Deng Morocho MD 12/13/2018 12:46 P
== END ==
LOC: M LRY 12:33
PROVIDERS: ATTEND Nurse Practitioner Family
DX: R05 Cough (principal)
CPT/HCPCS: 71046; 87804; G0463

== ENCOUNTER → 2019-02-16 | Outpatient (CLI) | payer MEDICARE, MEDICAID ==
[~2019-02-16] MED LIST changes: +BENA40TA5 PO; -BENA40TA7 PO
[2019-02-16 14:05] LABS: BASO % 0.4 % (0.0-1.0); EOS # 0.4 10^3/uL (0.0-0.5); EOS % 5.9 % (0.0-3.0); HEMATOCRIT 45.2 % (42.0-52.0); HEMOGLOBIN 13.8 g/dl (13.5-17.5); LYMPH % 28.3 % (24.0-44.0); MEAN CORPUSCULAR HEMOGLOBIN 26.5 pg (27.0-33.0); MEAN CORPUSCULAR HGB CONC 30.5 g/dl (32.0-36.5); MEAN CORPUSCULAR VOLUME 86.9 fl (80.0-96.0); MONO # 0.7 10^3/uL (0.0-0.8); MONO % 10.6 % (0.0-5.0); NEUTROPHILS # 3.8 10^3/uL (1.5-8.5); NEUTROPHILS % 54.7 % (36.0-66.0); PLATELET COUNT, AUTOMATED 256 10^3/uL (150-450)
[2019-02-16 14:08] LABS: HEMATOCRIT 45.2 % (42.0-52.0)
[2019-02-16 14:24] LABS: ALT/SGPT 36 U/L (12-78); BILIRUBIN,TOTAL 0.7 MG/DL (0.2-1.0); BLOOD UREA NITROGEN 13 MG/DL (7-18); CALCIUM LEVEL 9.2 MG/DL (8.8-10.2); CARBON DIOXIDE LEVEL 26 MEQ/L (21-32); CHLORIDE LEVEL 105 MEQ/L (98-107); CREATININE FOR GFR 0.98 MG/DL (0.70-1.30); FREE T4 0.84 NG/DL (0.76-1.46); GLOMERULAR FILTRATION RATE > 60.0 (>42); GLUCOSE, FASTING 89 MG/DL (70-100); POTASSIUM SERUM 4.3 MEQ/L (3.5-5.1); SODIUM LEVEL 139 MEQ/L (136-145); TOTAL PROTEIN 6.6 GM/DL (6.4-8.2)
[2019-02-16 14:36] LABS: HEMOGLOBIN A1c 6.2 %
[2019-02-17 13:16] LABS: THYROID PEROXIDASE ANTIBODY 172.3 U/ML (<60.0); VITAMIN B12 LEVEL 1048 PG/ML (247-911)
== END ==
LOC: M WUC 11:09
PROVIDERS: ATTEND Family Medicine
DX: E53.8 Deficiency of other specified B group vitamins (principal); E78.5 Hyperlipidemia, unspecified; Z12.5 Encounter for screening for malignant neoplasm of prostate
CPT/HCPCS: 36415; 80053; 82607; 82747; 83036; 84439; 84443; 85025; 85046; 86376; G0103

== ENCOUNTER → 2019-03-04 | Outpatient (CLI) | payer MEDICARE, MEDICAID ==
--- NOTE | 2019-03-05 02:19 | REP ---
Clinical: Chronic headache. Technique: AP, lateral, flexion/extension, bilateral oblique and open mouth views of the cervical spine. Findings: Alignment and lordosis maintained without evidence for acute fracture / compression injury or subluxation. Moderate multilevel degenerative disc osteophyte complexes are appreciated primarily involving C5-6 and C6-7. Prevertebral soft tissues are normal. Spinous processes are intact. C1-C2 articulation and odontoid process are normal. Neural foramen appear patent. Impression: Moderate multilevel degenerative spondylosis centered at C5-6 and C6-7. Electronically Signed by Praful Oscar MD 03/05/2019 02:10 A
== END ==
LOC: M RAD 16:11
PROVIDERS: ATTEND Family Medicine
DX: R51 Headache (principal)

== ENCOUNTER → 2019-07-02 | Outpatient (CLI) | payer MEDICARE, MEDICAID ==
[~2019-07-02] MED LIST changes: -ARTIDRO2 OU; +POLYOPD OU
[2019-07-02 12:29] LABS: BASO # 0.1 10^3/uL (0.0-0.2); BASO % 0.8 % (0.0-1.0); EOS # 0.5 10^3/uL (0.0-0.5); EOS % 7.5 % (0.0-3.0); HEMATOCRIT 40.9 % (42.0-52.0); HEMOGLOBIN 13.1 g/dl (13.5-17.5); LYMPH # 1.9 10^3/uL (1.5-5.0); LYMPH % 29.2 % (24.0-44.0); MEAN CORPUSCULAR HEMOGLOBIN 28.1 pg (27.0-33.0); MEAN CORPUSCULAR VOLUME 87.6 fl (80.0-96.0); MONO # 0.7 10^3/uL (0.0-0.8); MONO % 11.4 % (0.0-5.0); NEUTROPHILS # 3.3 10^3/uL (1.5-8.5); NEUTROPHILS % 50.9 % (36.0-66.0); PLATELET COUNT, AUTOMATED 235 10^3/uL (150-450); RED BLOOD COUNT 4.67 10^6/uL (4.30-6.10); WHITE BLOOD COUNT 6.4 10^3/uL (4.0-10.0)
[2019-07-02 12:43] LABS: ALBUMIN 3.5 GM/DL (3.2-5.2); ALT/SGPT 54 U/L (12-78); BILIRUBIN,TOTAL 0.7 MG/DL (0.2-1.0); BLOOD UREA NITROGEN 15 MG/DL (7-18); C REACTIVE PROTEIN QUANTITATIV < 0.30 MG/DL (0.00-0.30); CALCIUM LEVEL 8.3 MG/DL (8.8-10.2); CARBON DIOXIDE LEVEL 27 MEQ/L (21-32); CHLORIDE LEVEL 110 MEQ/L (98-107); CHOLESTEROL LEVEL 139 MG/DL (<200); CHOLESTEROL RISK RATIO 2.138 (<5); CREATININE FOR GFR 0.95 MG/DL (0.70-1.30); GLOMERULAR FILTRATION RATE > 60.0 (>42); GLUCOSE, FASTING 87 MG/DL (70-100); HDL CHOLESTEROL 65 MG/DL (>40); LDL CHOLESTEROL 62 MG/DL (<100); MAGNESIUM LEVEL 2.3 MG/DL (1.8-2.4); NON-HDL-C 74 MG/DL; POTASSIUM SERUM 3.8 MEQ/L (3.5-5.1); SODIUM LEVEL 142 MEQ/L (136-145); TOTAL PROTEIN 6.1 GM/DL (6.4-8.2); TRIGLYCERIDES LEVEL 59 MG/DL (<150)
[2019-07-02 13:18] LABS: HEMOGLOBIN A1c 6.2 %
== END ==
LOC: M WUC 09:19
PROVIDERS: ATTEND Family Medicine
DX: N18.2 Chronic kidney disease, stage 2 (mild) (principal); D50.9 Iron deficiency anemia, unspecified; E78.5 Hyperlipidemia, unspecified

== ENCOUNTER → 2019-07-10 | Outpatient (CLI) | payer MEDICARE, MEDICAID ==
--- NOTE | 2019-07-11 01:46 | REPPI ---
Clinical: Allergic rhinitis. Technique: Complete sinus series (four views) Findings: The sinuses are well aerated and clear. No mucoperiosteal thickening or fluid levels are identified. The surrounding osseous structures are intact and normal. Impression: Normal sinus series. Electronically Signed by Praful Oscar MD 07/11/2019 01:38 A
== END ==
LOC: M PLAIMG 14:48
PROVIDERS: ATTEND Family Medicine
DX: J30.89 Other allergic rhinitis (principal)
CPT/HCPCS: 70220; G0463

== ENCOUNTER 2019-08-04 09:52 | Outpatient (RCR) | payer MEDICARE, MEDICAID | END 2019-08-05 | disposition home or self-care (01) | LOC: M PT 09:52 | PROVIDERS: ATTEND Family Medicine | DX: Z51.89 Encounter for other specified aftercare (principal); M47.812 Spondylosis without myelopathy or radiculopathy, cervical region; R51 Headache ==

== ENCOUNTER 2019-08-18 09:54 | Outpatient (RCR) | payer MEDICARE, MEDICAID ==
[~2019-08-18 09:54] MED LIST changes: -AMLO10TA5 PO; +AMLO1TAB25 PO
== END 2019-09-05 ==
LOC: M PT 09:54
PROVIDERS: ATTEND Family Medicine
DX: M47.812 Spondylosis without myelopathy or radiculopathy, cervical region (principal); R51 Headache

== ENCOUNTER → 2020-01-07 | Outpatient (CLI) | payer MEDICARE, MEDICAID ==
[2020-01-07 14:04] LABS: BASO % 0.6 % (0.0-1.0); EOS # 0.5 10^3/uL (0.0-0.5); EOS % 7.5 % (0.0-3.0); HEMATOCRIT 45.2 % (42.0-52.0); HEMOGLOBIN 14.2 g/dl (13.5-17.5); LYMPH # 1.8 10^3/uL (1.5-5.0); LYMPH % 26.3 % (24.0-44.0); MEAN CORPUSCULAR HEMOGLOBIN 27.5 pg (27.0-33.0); MEAN CORPUSCULAR HGB CONC 31.4 g/dl (32.0-36.5); MEAN CORPUSCULAR VOLUME 87.4 fl (80.0-96.0); MONO # 0.7 10^3/uL (0.0-0.8); MONO % 10.1 % (0.0-5.0); NEUTROPHILS # 3.8 10^3/uL (1.5-8.5); NEUTROPHILS % 55.2 % (36.0-66.0); PLATELET COUNT, AUTOMATED 277 10^3/uL (150-450); RED BLOOD COUNT 5.17 10^6/uL (4.30-6.10); WHITE BLOOD COUNT 6.8 10^3/uL (4.0-10.0)
[2020-01-07 14:33] LABS: ALT/SGPT 32 U/L (12-78); BILIRUBIN,TOTAL 0.7 MG/DL (0.2-1.0); BLOOD UREA NITROGEN 16 MG/DL (7-18); CALCIUM LEVEL 9.2 MG/DL (8.8-10.2); CARBON DIOXIDE LEVEL 30 MEQ/L (21-32); CHLORIDE LEVEL 106 MEQ/L (98-107); CREATININE FOR GFR 1.11 MG/DL (0.70-1.30); GLOMERULAR FILTRATION RATE > 60.0 (>42); GLUCOSE, FASTING 95 MG/DL (70-100); POTASSIUM SERUM 4.4 MEQ/L (3.5-5.1); SODIUM LEVEL 140 MEQ/L (136-145); TOTAL PROTEIN 6.7 GM/DL (6.4-8.2)
[2020-01-07 14:36] LABS: VITAMIN B12 LEVEL 1018 PG/ML (247-911)
[2020-01-07 18:32] LABS: HEMOGLOBIN A1c 5.8 %
[2020-01-10 03:09] LABS: D001-IgE D pteronyssinus <0.10 kU/L (Class 0); E001-IgE Cat Epith/Dander < 0.10 kU/L (Class 0); E005-IgE Dog Dander < 0.10 kU/L (Class 0); G002-IgE Bermuda Grass < 0.10 kU/L (Class 0); G008-IgE Kentucky Bluegrass < 0.10 kU/L (Class 0); M001-IgE Penicillium chrysogen 0.94 kU/L (Class II); M002 IgE Cladosporium herbaru < 0.10 kU/L (Class 0); M003 IgE Aspergillus fumigatu 2.87 kU/L (Class III); M006-IgE Alternaria alternata 3.35 kU/L (Class III); T001-IgE Maple/Box Elder < 0.10 kU/L (Class 0); T003-IgE Common Silver Birch < 0.10 kU/L (Class 0); T006-IgE Cedar, Mountain < 0.10 kU/L (Class 0); T007-IgE Oak, White < 0.10 kU/L (Class 0); T008-IgE Elm, American < 0.10 kU/L (Class 0); T015-IgE Ash, White < 0.10 kU/L (Class 0); T041-IgE Hickory, White < 0.10 kU/L (Class 0); T070-IgE White Mulberry < 0.10 kU/L (Class 0); W001-IgE Ragweed, Short < 0.10 kU/L (Class 0); W009-IgE Plantain, English < 0.10 kU/L (Class 0); W014-IgE Pigweed, Rough < 0.10 kU/L (Class 0); W018-IgE Sheep Sorrel < 0.10 kU/L (Class 0)
== END ==
LOC: M WUC 10:39
PROVIDERS: ATTEND Family Medicine
DX: D50.9 Iron deficiency anemia, unspecified (principal); R73.01 Impaired fasting glucose; J30.89 Other allergic rhinitis; I48.0 Paroxysmal atrial fibrillation; E78.00 Pure hypercholesterolemia, unspecified; Z12.5 Encounter for screening for malignant neoplasm of prostate
CPT/HCPCS: 36415; 80053; 80061; 82607; 83036; 85025; 85027; 85046; 86003; G0103

== ENCOUNTER → 2020-01-07 | Outpatient (CLI) | payer MEDICARE, MEDICAID ==
[2020-01-07 14:04] LABS: HEMATOCRIT 45.3 % (42.0-52.0); HEMOGLOBIN 13.7 g/dl (13.5-17.5); MEAN CORPUSCULAR HEMOGLOBIN 26.4 pg (27.0-33.0); MEAN CORPUSCULAR HGB CONC 30.2 g/dl (32.0-36.5); MEAN CORPUSCULAR VOLUME 87.5 fl (80.0-96.0); PLATELET COUNT, AUTOMATED 278 10^3/uL (150-450); RED BLOOD COUNT 5.18 10^6/uL (4.30-6.10); WHITE BLOOD COUNT 6.8 10^3/uL (4.0-10.0)
[2020-01-07 14:31] LABS: ALBUMIN 4.1 GM/DL (3.2-5.2); ALT/SGPT 32 U/L (12-78); BILIRUBIN,TOTAL 0.7 MG/DL (0.2-1.0); BLOOD UREA NITROGEN 16 MG/DL (7-18); CALCIUM LEVEL 9.3 MG/DL (8.8-10.2); CARBON DIOXIDE LEVEL 30 MEQ/L (21-32); CHLORIDE LEVEL 107 MEQ/L (98-107); CHOLESTEROL LEVEL 158 MG/DL (<200); CHOLESTEROL RISK RATIO 2.078 (<5); CREATININE FOR GFR 1.13 MG/DL (0.70-1.30); GLOMERULAR FILTRATION RATE > 60.0 (>42); GLUCOSE, FASTING 96 MG/DL (70-100); HDL CHOLESTEROL 76 MG/DL (>40); LDL CHOLESTEROL 63 MG/DL (<100); NON-HDL-C 82 MG/DL; POTASSIUM SERUM 4.3 MEQ/L (3.5-5.1); SODIUM LEVEL 140 MEQ/L (136-145); TOTAL PROTEIN 6.8 GM/DL (6.4-8.2); TRIGLYCERIDES LEVEL 96 MG/DL (<150)
== END ==
LOC: M WUC 10:43
PROVIDERS: ATTEND Nurse Practitioner Family
DX: I48.0 Paroxysmal atrial fibrillation (principal); E78.00 Pure hypercholesterolemia, unspecified

== ENCOUNTER → 2020-02-04 | Outpatient (CLI) | payer SELFPAY ==
[~2020-02-04] MED LIST changes: +REGL10TA6 PO; +TESS100C PO
== END ==
LOC: M LABSMTC 11:38
PROVIDERS: ATTEND Pediatrics
DX: Z20.828 Contact with and (suspected) exposure to other viral communicable diseases (principal)

== ENCOUNTER 2020-02-07 10:29 | Emergency (ER) | payer MEDICARE, MEDICAID ==
[~2020-02-07] VITALS: Ht 170.2 cm; Wt 67.4 kg
[~2020-02-07 10:29] MED LIST changes: -REGL10TA6 PO; -TESS100C PO
[2020-02-07] MEDS ORDERED: ACETAMINOPHEN 500 MG TAB PO ONE (11:15)
[2020-02-07 11:40] VITALS: O2SAT 94
[2020-02-07 11:48] LABS: HEMATOCRIT 45.2 % (42.0-52.0); HEMOGLOBIN 13.7 g/dl (13.5-17.5); MEAN CORPUSCULAR HEMOGLOBIN 26.5 pg (27.0-33.0); MEAN CORPUSCULAR HGB CONC 30.3 g/dl (32.0-36.5); MEAN CORPUSCULAR VOLUME 87.4 fl (80.0-96.0); PLATELET COUNT, AUTOMATED 203 10^3/uL (150-450); RED BLOOD COUNT 5.17 10^6/uL (4.30-6.10); WHITE BLOOD COUNT 5.6 10^3/uL (4.0-10.0)
[2020-02-07 12:00] LABS: INR 1.12; PROTHROMBIN TIME 14.6 SECONDS (12.5-14.3)
[2020-02-07 12:01] LABS: PARTIAL THROMBOPLASTIN TIME 36.6 SECONDS (24.2-38.5)
[2020-02-07 12:13] LABS: ALBUMIN 3.8 GM/DL (3.2-5.2); ALT/SGPT 28 U/L (12-78); BILIRUBIN,DIRECT 0.1 MG/DL (0.0-0.2); BILIRUBIN,TOTAL 0.4 MG/DL (0.2-1.0); BLOOD UREA NITROGEN 11 MG/DL (7-18); CALCIUM LEVEL 8.6 MG/DL (8.8-10.2); CARBON DIOXIDE LEVEL 25 MEQ/L (21-32); CHLORIDE LEVEL 106 MEQ/L (98-107); CREATININE FOR GFR 1.17 MG/DL (0.70-1.30); GLOMERULAR FILTRATION RATE > 60.0 (>42); GLUCOSE, FASTING 96 MG/DL (70-100); LIPASE 126 U/L (73-393); POTASSIUM SERUM 4.2 MEQ/L (3.5-5.1); SODIUM LEVEL 138 MEQ/L (136-145); TOTAL PROTEIN 7.1 GM/DL (6.4-8.2)
[2020-02-07 12:22] LABS: RSV AMPLIFICATION NEGATIVE (NEGATIVE)
[2020-02-07 12:24] LABS: ATYPICAL LYMPH 8 % (0-5); LYMPHOCYTES 7 % (16-44); MONOCYTES 10 % (0-5); NEUTROPHILS 73 % (28-66); PLATELET ESTIMATE NORMAL (NORMAL)
[2020-02-07 12:25] LABS: POIKILOCYTOSIS 1+
[2020-02-07 12:35] LABS: D-DIMER QUANT < 270.0 ng/ml (<500)
[2020-02-07] MEDS ORDERED: REGL10TA6 PO (13:28)
[2020-02-07] MEDS ORDERED: METOCLOPRAMIDE INJ 10MG/2ML VIAL (J2765 PER 1) IV ONE (13:30)
[2020-02-07] MEDS ORDERED: METOCLOPRAMIDE 10 MG TAB PO ONE (13:45)
[2020-02-07 13:47] VITALS: BP 122/77
[2020-02-07] MEDS ORDERED: TESS100C PO (13:59)
== END 2020-02-07 13:56 | disposition home or self-care (01) ==
LOC: M ED 10:29
DX: U07.1 COVID-19 (principal); I48.91 Unspecified atrial fibrillation; E11.9 Type 2 diabetes mellitus without complications; I12.9 Hypertensive chronic kidney disease with stage 1 through stage 4 chronic kidney disease, or unspecified chronic kidney disease; J44.9 Chronic obstructive pulmonary disease, unspecified; N18.2 Chronic kidney disease, stage 2 (mild); R51.9 Headache, unspecified; Z79.899 Other long term (current) drug therapy; Z79.01 Long term (current) use of anticoagulants; Z88.2 Allergy status to sulfonamides; Z88.5 Allergy status to narcotic agent; Z91.011 Allergy to milk products

== ENCOUNTER 2020-02-15 10:15 | Emergency (ER) | payer MEDICAID, MEDICARE ==
[~2020-02-15] VITALS: Ht 170.2 cm; Wt 69.3 kg
[~2020-02-15 10:15] MED LIST changes: -FLUTISP; +FLUTISP NARES; +REGL10TA6 PO; +TESS100C PO
[2020-02-15] MEDS ORDERED: ONDANSETRON 4MG/2ML VIAL As Ordered ONE (10:32)
[2020-02-15] MEDS ORDERED: methylPREDNISolone 125MG 2ML VIAL IV ONE (10:45)
[2020-02-15] MEDS ORDERED: ONDANSETRON 4MG/2ML VIAL IV ONE (10:45)
[2020-02-15] MEDS ORDERED: COMBIVENT RESPIMAT 100-20MCG INHALER 4GM INH SCH (10:45)
[2020-02-15] MEDS ORDERED: ACETAMINOPHEN 325 MG TAB PO ONE (10:45)
[2020-02-15] MEDS ORDERED: NS 500 ML IV ONE (10:45)
[2020-02-15 11:25] LABS: HEMATOCRIT 41.2 % (42.0-52.0); HEMOGLOBIN 12.9 g/dl (13.5-17.5); MEAN CORPUSCULAR HEMOGLOBIN 26.7 pg (27.0-33.0); MEAN CORPUSCULAR HGB CONC 31.3 g/dl (32.0-36.5); MEAN CORPUSCULAR VOLUME 85.1 fl (80.0-96.0); PLATELET COUNT, AUTOMATED 193 10^3/uL (150-450); RED BLOOD COUNT 4.84 10^6/uL (4.30-6.10); WHITE BLOOD COUNT 6.5 10^3/uL (4.0-10.0)
--- NOTE | 2020-02-15 11:26 | REP ---
INDICATION: Coronavirus workup COMPARISON: 12/13/2018 TECHNIQUE: Portable AP view of the chest FINDINGS: Mediastinum and cardiac silhouette are within normal limits and stable. Lung pérez demonstrate diffuse chronic interstitial changes. Left lower lobe opacities suggest underlying airspace disease and acute pneumonia/infiltrate. No effusion. No pneumothorax. IMPRESSION: Vague left lower lobe opacity suggesting underlying airspace disease/pneumonia. <Electronically signed by Praful Oscar > 02/15/20 1129
[2020-02-15] MEDS ORDERED: ALBUTEROL SULFATE 2.5 MG/0.5 ML INH NEB SOLN INH ONE (11:30)
[2020-02-15 11:44] LABS: INR 1.52; PROTHROMBIN TIME 18.6 SECONDS (12.5-14.3)
[2020-02-15 11:45] LABS: PARTIAL THROMBOPLASTIN TIME 55.1 SECONDS (24.2-38.5)
[2020-02-15 11:47] LABS: D-DIMER QUANT 599.21 ng/ml (<500)
[2020-02-15] MEDS ORDERED: ALBUTEROL 90 MCG/ACT 8GM HFA INHALER INH ONE (12:00)
[2020-02-15 12:05] LABS: ATYPICAL LYMPH 2 % (0-5); EOSINOPHILS 1 % (0-3); LYMPHOCYTES 10 % (16-44); MONOCYTES 3 % (0-5); NEUTROPHILS 82 % (28-66)
[2020-02-15 12:06] LABS: PLATELET ESTIMATE NORMAL (NORMAL)
[2020-02-15 12:07] LABS: ANISOCYTOSIS 1+
[2020-02-15 12:23] LABS: ALBUMIN 2.9 GM/DL (3.2-5.2); ALT/SGPT 29 U/L (12-78); BILIRUBIN,TOTAL 0.5 MG/DL (0.2-1.0); BLOOD UREA NITROGEN 17 MG/DL (7-18); CALCIUM LEVEL 8.6 MG/DL (8.8-10.2); CARBON DIOXIDE LEVEL 27 MEQ/L (21-32); CHLORIDE LEVEL 101 MEQ/L (98-107); CK-MB VALUE MASS < 1.0 NG/ML (<3.6); CPK CREATINE PHOSPHOKINASE 90 U/L (39-308); CREATININE FOR GFR 0.94 MG/DL (0.70-1.30); FERRITIN 1913 NG/ML (26-388); GLOMERULAR FILTRATION RATE > 60.0 (>42); GLUCOSE, FASTING 97 MG/DL (70-100); LDH LACTATE DEHYDROGENASE 314 U/L (87-241); MAGNESIUM LEVEL 2.3 MG/DL (1.8-2.4); MB/CK RELATIVE INDEX 1.11 (< OR =4); POTASSIUM SERUM 3.6 MEQ/L (3.5-5.1); SODIUM LEVEL 135 MEQ/L (136-145); TROPONIN I 0.04 NG/ML (< 0.10)
[2020-02-15] MEDS ORDERED: METO5TAB2 PO (12:48)
[2020-02-15] MEDS ORDERED: SUCR1TA PO (12:48)
[2020-02-15] MEDS ORDERED: D3 H2000 PO (12:48)
[2020-02-15] MEDS ORDERED: CETI-24 PO (12:48)
[2020-02-15] MEDS ORDERED: TESS100C PO (12:48)
[2020-02-15] MEDS ORDERED: TRUS1SOL OU (12:48)
[2020-02-15] MEDS ORDERED: FLEC10TA PO (12:48)
[2020-02-15] MEDS ORDERED: AZITHROMYCIN INJ 500 MG, VIAL MATE ADAPTER 1 EACH in D5W 250 ML IV ONE (13:00)
[2020-02-15] MEDS ORDERED: cefTRIAXone SOD 1 GM in D5W MINI-BAG PLUS 50 ML IV ONE (13:00)
[2020-02-15 15:30] VITALS: BP 125/75
[2020-02-15] MEDS ORDERED: DOXY100C37 PO (15:40)
[2020-02-15] MEDS ORDERED: CEFU50TA PO (15:40)
[2020-02-15] MEDS ORDERED: ZOFR4TAB16 PO (15:43)
--- NOTE | 2020-02-15 19:34 | ECGEPIP ---
[facility] - ED Test Date: 2020-02-15 Pat Name: SABIHA MARSHALL Department: Room: - Gender: Male Buggyman: : 1950 Requested By: Noel Roberts Order Number: [id number] Reading MD: Noel Roberts Measurements Intervals [place] Rate: 75 P: 69 [place]: 186 QRS: -3 QRSD: 119 T: 41 QT: 410 QTc: 460 Interpretive Statements SINUS RHYTHM INCOMPLETE RIGHT BUNDLE BRANCH BLOCK NONSPECIFIC T-WAVE ABNORMALITY POISSBLE INFERIOR MYOCARDIAL INFARCTION AGE INDETERMINATE NO PRIOR ECG FOR COMPARISON Electronically Signed on 02-15-2020 19:34:32 EST by Noel Roberts
== END 2020-02-15 15:51 | disposition home or self-care (01) ==
LOC: M ED 10:15 → EDBD 10:15 → M ED 15:51
DX: J12.82 Pneumonia due to coronavirus disease 2019 (principal); R09.02 Hypoxemia; R11.0 Nausea; E11.9 Type 2 diabetes mellitus without complications; N40.0 Benign prostatic hyperplasia without lower urinary tract symptoms; R51.9 Headache, unspecified; N18.30 Chronic kidney disease, stage 3 unspecified; Z79.899 Other long term (current) drug therapy; Z79.01 Long term (current) use of anticoagulants; Z79.51 Long term (current) use of inhaled steroids; Z91.011 Allergy to milk products; Z88.2 Allergy status to sulfonamides; Z88.5 Allergy status to narcotic agent; Z88.8 Allergy status to other drugs, medicaments and biological substances
CPT/HCPCS: 36600; 71045; 80053; 82550; 82553; 82728; 82803; 83605; 83615; 83735; 84145; 84484; 85025; 85379; 85384; 85610; 85730; 86140; 87040; 93005; 94640; 96365; 96367; 96375; 99284; J0456; J0696; J2405; J2930

== ENCOUNTER → 2020-03-01 | Outpatient (CLI) | payer MEDICARE, MEDICAID ==
[~2020-03-01] MED LIST changes: +CEFU50TA PO; +CETI-24 PO; +D3 H2000 PO; +DOXY100C37 PO; +FLEC10TA PO; +METO5TAB2 PO; +SUCR1TA PO; +TRUS1SOL OU; +ZOFR4TAB16 PO
--- NOTE | 2020-03-01 16:57 | REP ---
INDICATION: PNEUMONIA DUE TO COVID 19. COMPARISON: Comparison chest x-ray 15 February 2020. TECHNIQUE: Two views.. FINDINGS: There is a peripheral interstitial infiltrate in the left mid and upper lung zone essentially unchanged from the 15 February 2020 prior study. There are some increased interstitial markings in the right base today and a subtle infiltrate is suspected here. No other new infiltrate is seen. Pleural angles are sharp. Heart is not enlarged. The aorta is calcific and tortuous. No acute bony abnormality is seen. IMPRESSION: Fairly large interstitial infiltrate left lung essentially unchanged. Increased markings right base suspect new infiltrate... <Electronically signed by Jese Morocho > 03/01/20 [id number]
== END ==
LOC: M WUC 15:24
PROVIDERS: ATTEND Physician Assistant
DX: J12.82 Pneumonia due to coronavirus disease 2019 (principal)

== ENCOUNTER 2020-03-24 12:54 | Emergency (ER) | payer MEDICARE, MEDICAID ==
[~2020-03-24] VITALS: Ht 172.7 cm; Wt 65.7 kg
--- OUTSIDE RECORDS SUMMARY | 2020-03-24 13:00 | CCD ---
Author Author [facility] Organization [facility] Address Unknown Phone Unavailable Care Team Providers Care Assistant Dean Of Students Name Role Phone Daniela Gonzalez Unavailable PROBLEMS Type Condition ICD9-CM Code [id number] Code Onset Dates Condition S tatus SNOMED Code Notes Problem Hyperlipidemia E78.5 Active 18832212 Problem Atrial fibrillation I48.91 Active 48012572 Problem Prostate cancer screening Z12.5 Active 146443 005 Problem Hypertension I10 Active 42597205 Problem CKD (chronic kidney disease) stage 2, GFR 60-89 ml/min N18.2 Active 029878386 Problem IFG (impaired fasting glucose) R73.01 Active 3 07140759 Problem Candidiasis of penis B37.42 Active 49600284 Problem GERD (gastroesophageal reflux disease) K21.9 A ctive 218312462 Problem Benign prostatic hyperplasia with lower urinary tract symptoms N40.1 Active 047717213 Problem Essential tremor G25.0 Active 775411299 Problem Vitamin D deficiency E55.9 Active 90220850 Problem Colon cancer screening Z12.11 Active 666367035 Problem B12 deficiency E53.8 Active 397233347 Problem Recurrent sinusitis J32.9 Active 911091033 Problem Gastritis K29.70 Active 1079473 Problem Oral candidiasis B37.0 Active 79781976 Problem Non-seasonal allergic rhinitis due to other allergic rosario er J30.89 Active 70984944 Problem COPD (chronic obstructive pulmonary disease) J44.9 Active 64791522 Problem Fe deficiency anemia D50.9 Active 65043967 Problem Eczema of both hands L30.9 Active 352398017 Problem Obstructive sleep apnea syndrome G47.33 Active 25158736 Problem Venous insufficiency of both lower extremities I87 .2 Active 045724773 Problem Constipation, chronic K59.09 Active 222574536 ALLERGIES Allergen (clinical drug ingredient) Drug/Non Drug Allergy do cumented on EMR Reaction Allergy Type Onset Date Status bacitracin Bacitracin([facility] Code:[address]-67) blisters Drug Allergy Active Sulfa (for allergy use only) Rash Drug Allergy Active Advair Diskus palpations Drug Allergy Active ENCOUNTERS from 1950 to 2020-03-03 Encounter Location Date Provider Diagnosis [facility] [address] [address] Feb, Daniela Gonzalez IMMUNIZATIONS Vaccine Route Administration Date Status Influenza (High Dose 65 & up) IM Intramuscular Nov 09, 2016 A dministered Influenza (High Dose 65 & up) IM Intramuscular Dec 23, 2015 A dministered Influenza (High Dose 65 & up) Unknown Dec 01, 2014 Ad ministered Pneumococcal 0.5mL (Prevnar 13) IM Intramuscular Jan 18, 2018 Administered Influenza (6mo & up) Fluzone IM Intramuscular Nov 26, 2013 Ad ministered Influenza (6mo & up) Fluzone IM Intramuscular Dec 03, 2012 Ad ministered Influenza (18 yrs & older) Flublok IM Intramuscular Nov 29, 2018 Administered Influenza (6mo & up) Fluzone IM Intramuscular Nov 08, 2011 Ad ministered Influenza (Pharmacy Given) IM Intramuscular Nov 06, 2019 Admi nistered Influenza (6mo & up) Fluzone IM Intramuscular Nov 01, 2010 Ad ministered Influenza (6mo & up) Fluzone IM Intramuscular Nov 09, 2009 Ad ministered SOCIAL HISTORY Tobacco Use: Social History Observation Description Date Details (start date - stop date) Former Smoker Sex Assigned At : Social History Observation Description Sex Assigned At Unknown Education: Question Answer Notes Level of Education: Not Finished College Audit Question Answer Notes Total Score: 0 Interpretation: Alcohol Education Sexual Hx: Question Answer Notes Had sex in the last 12 months (vaginal, oral, or anal)? No Have you ever had an STD? No Drug and Alcohol Question Answer Notes Total Score: 0 Interpretation: No problems reported Alcohol Screening: Question Answer Notes Did you have a drink containing alcohol in the past year? No Points 0 Interpretation Negative Tobacco Use: Question Answer Notes Are you a: former smoker How long has it been since you last smoked? > 10 years REASON FOR REFERRAL No Information VITAL SIGNS No information MEDICATIONS Medication SIG (Take, Route, Frequency, Duration) Notes Start Da te End Date Status Cyanocobalamin 250 MCG 1 tablet Orally Once a day for 90 day(s) Active Oxygen 2L nc ICD: 327.23 at bedtime 01/11/12 noc ox c 1:33 c SaO2 <89 % Active Calcium 600+D High Potency 600-400 MG-UNIT 1 tablet Or ally Twice aday for 90 day(s) Active Mucinex 600 MG 2 tablets Orally every 12 hrs for 90 day(s) Active Polyethylene Glycol 1 17 gm orally in 8 oz liquid daily for 90 day(s) Active AmLODIPine Besylate 10 MG 1 tablet Orally Once a day for 90 day(s) Active Lancets Use one Lancet 1 lancet subcutaneously Four times a day DX 250 for 90 day(s) Active Benazepril HCl 40 MG 1 tablet Orally bid for 90 day(s) Active Flecainide Acetate 50 mg 2 tablets Orally every 12 hrs for 90 day(s) Active Dexilant 60 MG 1 capsule Orally Once a day for 90 day(s) Active Apixaban 5 MG 1 tab Orally bid for 90 day(s) Active Aquaphor - as directed Externally tid for 90 day(s) Active Nystatin 413781 UNIT/GM 1 application to affected ar ea Externally Twice a day x 7 days with penile rash for 90 day(s) Active Ferrous Sulfate 325 (65 Fe) MG 1 tablet Orally Once a day for 90 day( s) Active Clobetasol Propionate 0.05 % 1 application to affected area Externally bedtime x 4W, then QOHS x 2W, then stop for 90 day(s) Active Ezetimibe 10 MG 1 tablet Orally Once a day for 90 day(s) Active Triamcinolone & Emollient 0.1 % 1 application External ly Twice a day for 30 day(s) Feb, Active Cetirizine HCl 10 MG 1 tablet Orally Once a day for 30 day(s) Jan, Active Carafate 1 GM 1 tablet Orally four times a day for 90 day(s) Active Atorvastatin Calcium 40 MG 1 tab Orally Daily for 90 day(s) Active ProAir RespiClick 108 (90 Base) MCG/ACT 2 puffs as nee ded Inhalation four times a day as needed for 30 days Aug, Acti ve Clotrimazole 10 MG 1 chino Mouth/Throat four times daily for 14 day(s) Jan, Active Lumigan 0.03 % 1 drop into affected eye Ophthalmic Once a day([facility]) Active Brinzolamide-Brimonidine 1-0.2 % 1 drop into affected eye Ophthalmic bid Active Flovent HFA 220 MCG/ACT 1 puff Inhalation Twice a day for 90 day(s) Active Vitamin D 2000 UNIT 1 tab Orally Once a day for 90 day(s) Active COMPRESSION STOCKINGS 15-20 mmHg as directed _ Daily for 90 day(s) Active Albuterol Sulfate HFA 108 (90 Base) MCG/ACT 2 puffs In halation four time a day as needed for 90 day(s) Active PROCEDURES No Information RESULTS No Results REASON FOR VISIT No Information MEDICAL (GENERAL) HISTORY Type Description Date Medical History atrial fibrillation, paroxys mal-03/2012 Holter 3 brief runs atrial tachycardia-[facility] Medical History anemia, secondary to iron deficiency/chr onic kidney disease Medical History hypertension-January 2008 n ormal TTE-Dr. Marie/02/2011 normal EST-[facility] Medical History COPD-March 2011 FEV1 2.6 L (83%)/rati o 116% Medical History IFG Medical History hyperlipidemia 2B Medical History GERD/gastritis/duodenitis/es ophageal erosions by EGD-Balwinder- September 2008/05/2015 UGI SUSAN to [facility]/gastritis Medical History history of nicotine addictio n-15 cigs daily x 30 years-quit 11/2007 Medical History lumbar DJD/bilateral knee osteoarthritis Medical History chronic kidney disease stage III-01/2009 B renal US normal x stable R upper pole 23 mm simple cyst Medical History multiple dental caries Medical History 11/2011 normal NPSG c hypoxi a-SaO2 clarence 87%, maintained on 2L [facility] Medical History L presybeterian recurrent SK, 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, 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 Medical History - 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) Medical History allergic rhinitis, perennial /recurrent sinusitis-02/2017 CT MF moderate ethmoid/sphenoid, mucosal thickening of R [facility] Medical History chronic tension headache-mild by 02/[address] head Surgical History udwlewyyczy-Vychevdf-usjuh 3 internal he morrhoids November 2008 Surgical History torus removal and removal of 9 remaining mandibular teeth-[facility] 03/2011 Surgical History OU cateract surgery-[facility] 10/2011 Surgical History phaco c IOL, OD/OS-[facility] 04/2013, 03/2017 Surgical History OU trabeculoplasty-[facility] 09/2016 Surgical History Left cataract removal and St ent implant- laser surgery for wjibsxzs-[facility] 03/25 Surgical History CFB-VK-Zbyfb-[facility] 07/23 Hospitalization History none Goals Section No Information Health Concerns No Information MEDICAL EQUIPMENT No Information MENTAL STATUS No Information FUNCTIONAL STATUS No Information ASSESSMENTS No Information PLAN OF TREATMENT Next Appt Details Provider Name:Feliz Fitzgerald, 2020-05-13 0 9:30:00 AM, [address] [place], [address], Insurance Providers Payer Name Payer Address Payer Phone Insured Name Patient Relati onship to Insured Coverage Start Date Coverage End Date MEDICAID [employer] [address] [facility] [id number] SABIHA REYNOSO [facility] [address] [facility] [id number] SABIHA REYNOSO
--- OUTSIDE RECORDS SUMMARY | 2020-03-24 13:00 | CCD ---
Author Author [facility] Organization [facility] Address Unknown Phone Unavailable Care Team Providers Care Preparer Samples And Repairs Name Role Phone Daniela Gonzalez Unavailable PROBLEMS Type Condition ICD9-CM Code [id number] Code Onset Dates Condition S tatus SNOMED Code Notes Problem Hyperlipidemia E78.5 Active 25917412 Problem Atrial fibrillation I48.91 Active 16167114 Problem Prostate cancer screening Z12.5 Active 804587 005 Problem Hypertension I10 Active 22924984 Problem CKD (chronic kidney disease) stage 2, GFR 60-89 ml/min N18.2 Active 442086548 Problem IFG (impaired fasting glucose) R73.01 Active 3 53461398 Problem Candidiasis of penis B37.42 Active 17924210 Problem GERD (gastroesophageal reflux disease) K21.9 A ctive 022251832 Problem Benign prostatic hyperplasia with lower urinary tract symptoms N40.1 Active 363572864 Problem Essential tremor G25.0 Active 668335412 Problem Vitamin D deficiency E55.9 Active 06370154 Problem Colon cancer screening Z12.11 Active 128803207 Problem B12 deficiency E53.8 Active 713287131 Problem Recurrent sinusitis J32.9 Active 095672884 Problem Gastritis K29.70 Active 9168099 Problem Oral candidiasis B37.0 Active 43879332 Problem Non-seasonal allergic rhinitis due to other allergic rosario er J30.89 Active 35831844 Problem COPD (chronic obstructive pulmonary disease) J44.9 Active 97199755 Problem Fe deficiency anemia D50.9 Active 11936193 Problem Eczema of both hands L30.9 Active 210363412 Problem Obstructive sleep apnea syndrome G47.33 Active 43674092 Problem Venous insufficiency of both lower extremities I87 .2 Active 627500330 Problem Constipation, chronic K59.09 Active 531297846 ALLERGIES Allergen (clinical drug ingredient) Drug/Non Drug Allergy do cumented on EMR Reaction Allergy Type Onset Date Status bacitracin Bacitracin([facility] Code:[address]-64) blisters Drug Allergy Active Sulfa (for allergy use only) Rash Drug Allergy Active Advair Diskus palpations Drug Allergy Active ENCOUNTERS from 1950 to 2020-03-03 Encounter Location Date Provider Diagnosis [address] [address] Feb, Daniela Gonzalez Pneumonia due to Coronavirus disease 201 9 J12.82 and COVID-19 U07.1 IMMUNIZATIONS Vaccine Route Administration Date Status Influenza [...] REASON FOR REFERRAL No Information VITAL SIGNS Weight 141 lbs Feb, Height 68 in Feb, BMI 21.44 kg/m2 Feb, Heart Rate 20 /min Feb, Respiratory Rate 20 /min Feb, Temperature 98 degrees Fahrenheit Feb, Oximetry 95 Feb, Blood pressure systolic 120 mm Hg Feb, Blood pressure diastolic 70 mm Hg Feb, MEDICATIONS Medication SIG (Take, Route, Frequency, Duration) [...] Externally tid for 90 day(s) Active Nystatin 221157 UNIT/GM 1 application to affected ar ea [...] Information RESULTS No Results REASON FOR VISIT PER KARYNA MEDICAL (GENERAL) HISTORY Type Description Date Medical History atrial fibrillation, paroxys mal-03/2012 Holter 3 brief runs atrial tachycardia-[facility] Medical History anemia, secondary to iron deficiency/chr onic kidney disease Medical History hypertension-January 2008 n noah TTE-Dr. 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) Medical History allergic rhinitis, perennial /recurrent sinusitis-02/2017 CT MF moderate ethmoid/sphenoid, mucosal thickening of R [facility] Medical History chronic tension headache-mild by 02/[address] head Surgical History cberueulrxr-Zmufsiea-ytths 3 internal he morrhoids November 2008 Surgical History torus removal and removal of 9 remaining mandibular teeth-[facility] 03/2011 Surgical History [facility]act surgery-[facility] 10/2011 Surgical History phaco c IOL, OD/OS-[facility] 04/2013, 03/2017 Surgical History OU trabeculoplasty-[facility] 09/2016 Surgical History Left cataract removal and St ent implant- laser surgery for ihukynfe-[facility] 03/25 Surgical History HGP-AD-Oekvl-[facility] 07/23 Hospitalization History none Goals Section No Information Health Concerns No Information MEDICAL EQUIPMENT No Information MENTAL STATUS No Information FUNCTIONAL STATUS No Information ASSESSMENTS Encounter Date Diagnosis Assessment Notes Treatment Notes Treatm ent Clinical Notes Feb, Pneumonia due to Coronavirus disease 2019 (ICD-1 0 - J12.82) Pt significantly improved. F/U as scheduled with Dr. Fitzgerald. Will notify of CXR results once available Feb, COVID-19 (ICD-10 - U07.1) PLAN OF TREATMENT Treatment Notes Assessment Notes Clinical Notes Pneumonia due to Coronavirus disease 2019 Pt significa ntly improved. F/U as scheduled with Dr. Fitzgerald. Will notify of CXR results once available Treatment Notes Test Name Order Date PLZ CHEST 2 VIEW 2020-03-03 Next Appt Details Provider Name:Feliz Fitzgerald, 2020-05-13 0 9:30:00 AM, [address] [place], [address], Insurance Providers Payer Name Payer Address Payer Phone Insured Name Patient Relati onship to Insured Coverage Start Date Coverage End Date MEDICAID [employer] [address] [facility] [id number] SABIHA REYNOSO [facility] [address] [facility] [phone] SABIHA REYNOSO
--- OUTSIDE RECORDS SUMMARY | 2020-03-24 13:00 | CCD ---
Author Author [facility] Organization [facility] Address Unknown Phone Unavailable Care Team Providers Care Quality Control Tech Name Role Phone Daniela Gonzalez Unavailable PROBLEMS Type Condition ICD9-CM Code [id number] Code Onset Dates Condition S tatus W/U Status Risk SNOMED Code Notes Problem Hyperlipidemia E78.5 Active confirmed 66518 004 Problem Atrial fibrillation I48.91 Active confirmed 28495843 Problem Prostate cancer screening Z12.5 Active confirmed 313746094 Problem Hypertension I10 Active confirmed 3044191 3 Problem CKD (chronic kidney disease) stage 2, GFR 60-89 ml/min N18.2 Active confirmed 047212763 Problem IFG (impaired fasting glucose) R73.01 Active confir med 598270399 Problem Candidiasis of penis B37.42 Active confirmed 70578588 Problem GERD (gastroesophageal reflux disease) K21.9 A ctive confirmed 819664678 Problem Benign prostatic hyperplasia with lower urinary tract symptoms N40.1 Active confirmed 919385177 Problem Essential tremor G25.0 Active confirmed 609 262599 Problem Vitamin D deficiency E55.9 Active confirmed 38769013 Problem Colon cancer screening Z12.11 Active confirmed 403372014 Problem B12 deficiency E53.8 Active confirmed 00349 4004 Problem Recurrent sinusitis J32.9 Active confirmed 845174744 Problem Gastritis K29.70 Active confirmed 5334605 Problem Oral candidiasis B37.0 Active confirmed 797 18883 Problem Non-seasonal allergic rhinitis due to other allergic rosario er J30.89 Active confirmed 88954357 Problem COPD (chronic obstructive pulmonary disease) J44.9 Active confirmed 06960836 Problem Fe deficiency anemia D50.9 Active confirmed 16364930 Problem Eczema of both hands L30.9 Active confirmed 230455581 Problem Obstructive sleep apnea syndrome G47.33 Active conf irmed 11162597 Problem Venous insufficiency of both lower extremities I87 .2 Active confirmed 180010363 Problem Constipation, chronic K59.09 Active confirmed 662906014 ALLERGIES Allergen (clinical drug ingredient) Drug/Non Drug Allergy do cumented on EMR Reaction Allergy Type Onset Date Status bacitracin Bacitracin([facility] Code:[address]-09) blisters Drug Allergy Active Sulfa (for allergy use only) Rash Drug Allergy Active Advair Diskus palpations Drug Allergy Active ENCOUNTERS from 1950 to 2020-03-10 Encounter Location Date Provider Diagnosis [address] [address] Mar, Daniela Gonzalez IMMUNIZATIONS Vaccine Route Administration Date Status Influenza (High Dose 65 & up) IM Intramuscular Nov 09, 2016 A dministered Influenza (High Dose 65 & up) IM Intramuscular Dec 23, 2015 A dministered Influenza (Pharmacy Given) IM Intramuscular Nov 06, 2019 Admi nistered Influenza (High Dose 65 & up) Unknown Dec 01, 2014 Ad ministered Influenza (6mo & up) Fluzone IM Intramuscular Nov 26, 2013 Ad ministered Influenza (6mo & up) Fluzone IM Intramuscular Dec 03, 2012 Ad ministered Pneumococcal 0.5mL (Prevnar 13) IM Intramuscular Jan 18, 2018 Administered Influenza (6mo & up) Fluzone IM Intramuscular Nov 08, 2011 Ad ministered Influenza (18 yrs & older) [...] Externally tid for 90 day(s) Active Nystatin 868492 UNIT/GM 1 application to affected ar ea [...] Information RESULTS No Results REASON FOR VISIT Chest pain MEDICAL (GENERAL) HISTORY Type Description Date Medical History atrial fibrillation, paroxys mal-03/2012 Holter 3 brief runs atrial tachycardia-[facility] Medical History anemia, secondary to iron deficiency/chr onic kidney disease Medical History hypertension-January 2008 n ormal TTE-Dr. 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) Medical History allergic rhinitis, perennial /recurrent sinusitis-02/2017 CT MF moderate ethmoid/sphenoid, mucosal thickening of R [facility] Medical History chronic tension headache-mild by 02/[address] head Surgical History ujspffltuqt-Iljwxuve-etcjl 3 internal he morrhoids November 2008 Surgical History torus removal and removal of 9 remaining mandibular teeth-[facility] 03/2011 Surgical History OU cateract surgery-[facility] 10/2011 Surgical History phaco c IOL, OD/OS-[facility] 04/2013, 03/2017 Surgical History OU trabeculoplasty-[facility] 09/2016 Surgical History Left cataract removal and St ent implant- laser surgery for tzbnuxrh-BZMGT-[facility] 03/25 Surgical History BBW-AN-Bnbxk-[facility] 07/23 Hospitalization History none Goals Section No Information Health Concerns No Information MEDICAL EQUIPMENT No Information MENTAL STATUS No Information FUNCTIONAL STATUS No Information ASSESSMENTS No Information PLAN OF TREATMENT Next Appt Details Provider Name:Feliz Fitzgerald, 2020-05-13 0 9:30:00 AM, [address] [place], [address], Insurance Providers Payer Name Payer Address Payer Phone Insured Name Patient Relati onship to Insured Coverage Start Date Coverage End Date MEDICAID [employer] [address] [facility] [id number] SABIHA REYNOSO [facility] [address] [facility] [address] SABIHA REYNOSO
--- OUTSIDE RECORDS SUMMARY | 2020-03-24 13:00 | CCD ---
Author Author [facility] Organization [facility] Address Unknown Phone Unavailable Care Team Providers Care Vp Packaging Name Role Phone Feliz Fitzgerald Unavailable PROBLEMS Type Condition ICD9-CM Code [id number] Code Onset Dates Condition S tatus SNOMED Code Notes Problem Hyperlipidemia E78.5 Active 00067718 Problem Atrial fibrillation I48.91 Active 21759252 Problem Prostate cancer screening Z12.5 Active 840850 005 Problem Hypertension I10 Active 64401856 Problem CKD (chronic kidney disease) stage 2, GFR 60-89 ml/min N18.2 Active 180548284 Problem IFG (impaired fasting glucose) R73.01 Active 3 37564847 Problem Candidiasis of penis B37.42 Active 05164020 Problem GERD (gastroesophageal reflux disease) K21.9 A ctive 204808130 Problem Benign prostatic hyperplasia with lower urinary tract symptoms N40.1 Active 755196162 Problem Essential tremor G25.0 Active 918904379 Problem Vitamin D deficiency E55.9 Active 27444216 Problem Colon cancer screening Z12.11 Active 048016573 Problem B12 deficiency E53.8 Active 161007754 Problem Recurrent sinusitis J32.9 Active 755905035 Problem Gastritis K29.70 Active 8207994 Problem Oral candidiasis B37.0 Active 70971018 Problem Non-seasonal allergic rhinitis due to other allergic rosario er J30.89 Active 69721293 Problem COPD (chronic obstructive pulmonary disease) J44.9 Active 94062008 Problem Fe deficiency anemia D50.9 Active 95763965 Problem Eczema of both hands L30.9 Active 056579344 Problem Obstructive sleep apnea syndrome G47.33 Active 84919023 Problem Venous insufficiency of both lower extremities I87 .2 Active 324279545 Problem Constipation, chronic K59.09 Active 521417812 ALLERGIES Allergen (clinical drug ingredient) Drug/Non Drug Allergy do cumented on EMR Reaction Allergy Type Onset Date Status bacitracin Bacitracin([facility] Code:[address]-01) blisters Drug Allergy Active Sulfa (for allergy use only) Rash Drug Allergy Active Advair Diskus palpations Drug Allergy Active ENCOUNTERS from 1950 to 2020-02-16 Encounter Location Date Provider Diagnosis [address] [place] [address] Feb, 021 Feliz Fitzgerald IMMUNIZATIONS Vaccine Route Administration Date Status Influenza [...] Notes Level of Education: Not Finished College Sexual Hx: Question Answer Notes Had sex in the last 12 months (vaginal, oral, or anal)? No Have you ever had an STD? No Alcohol Screening: Question Answer Notes Did you [...] Notes Start Da te End Date Status Polyethylene Glycol 1 17 gm orally in 8 oz liquid daily for 90 day(s) Active Benazepril HCl 40 MG 1 tablet Orally bid for 90 day(s) Active Brinzolamide-Brimonidine 1-0.2 % 1 drop into affected eye Ophthalmic bid Active Flecainide Acetate 50 mg 2 tablets Orally every 12 hrs for 90 day(s) Active Dexilant 60 MG 1 capsule Orally Once a day for 90 day(s) Active Apixaban 5 MG 1 tab Orally bid for 90 day(s) Active Ferrous Sulfate 325 (65 Fe) MG 1 tablet Orally Once a day for 90 day( s) Active Carafate 1 GM 1 tablet Orally four times a day for 90 day(s) Active Clotrimazole 10 MG 1 chino Mouth/Throat four times daily for 14 day(s) Jan, Active Vitamin D 2000 UNIT 1 tab Orally Once a day for 90 day(s) Active AmLODIPine Besylate 10 MG 1 tablet Orally Once a day for 90 day(s) Active Aquaphor - as directed Externally tid for 90 day(s) Active COMPRESSION STOCKINGS 15-20 mmHg as directed _ Daily for 90 day(s) Active Lumigan 0.03 % 1 drop into affected eye Ophthalmic Once a day([facility]) Active ProAir RespiClick 108 (90 Base) MCG/ACT 2 puffs as nee ded Inhalation four times a day as needed for 30 days Aug, Acti ve Calcium 600+D High Potency 600-400 MG-UNIT 1 tablet Or ally Twice aday for 90 day(s) Active Triamcinolone & Emollient 0.1 % 1 application External ly Twice a day for 30 day(s) Feb, Active Cyanocobalamin 250 MCG 1 tablet Orally Once a day for 90 day(s) Active Cetirizine HCl 10 MG 1 tablet Orally Once a day for 30 day(s) Jan, Active Ezetimibe 10 MG 1 tablet Orally Once a day for 90 day(s) Active Clobetasol Propionate 0.05 % 1 application to affected area Externally bedtime x 4W, then QOHS x 2W, then stop for 90 day(s) Active Nystatin 477673 UNIT/GM 1 application to affected ar ea Externally Twice a day x 7 days with penile rash for 90 day(s) Active Lancets Use one Lancet 1 lancet subcutaneously Four times a day DX 250 for 90 day(s) Active Atorvastatin Calcium 40 MG 1 tab Orally Daily for 90 day(s) Active Albuterol Sulfate HFA 108 (90 Base) MCG/ACT 2 puffs In halation four time a day as needed for 90 day(s) Active Oxygen 2L nc ICD: 327.23 at bedtime 01/11/12 noc ox c 1:33 c SaO2 <89 % Active Mucinex 600 MG 2 tablets Orally every 12 hrs for 90 day(s) Active Flovent HFA 220 MCG/ACT 1 puff Inhalation Twice a day for 90 day(s) Active PROCEDURES No Information RESULTS No Results REASON FOR VISIT COVID Pneumonia MEDICAL (GENERAL) HISTORY Type Description Date Medical History atrial fibrillation, paroxys mal-03/2012 Holter 3 brief runs atrial tachycardia-[facility] Medical History anemia, secondary to iron deficiency/chr onic kidney disease Medical History hypertension-January 2008 n ormal TTE-Dr. 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 04/2013, 03/2017 Surgical History OU trabeculoplasty-[facility] 09/2016 Surgical History Left cataract removal and St ent implant- laser surgery for keixkzcr-OSIAU-[facility] 03/25 Surgical History IJK-PM-Bivft-[facility] 07/23 Hospitalization History none Goals Section No Information Health Concerns No Information MEDICAL EQUIPMENT No Information MENTAL STATUS No Information FUNCTIONAL STATUS No Information ASSESSMENTS No Information PLAN OF TREATMENT Medication Medication Name Sig Start Date Stop Date Mucinex 600 MG 2 tablets Orally every 12 hrs for 90 day(s) Flovent HFA 220 MCG/ACT 1 puff Inhalation Twice a day for 90 day (s) Oxygen 2L nc ICD: 327.23 at bedtime 01/11/12 noc ox c 1:33 c SaO2 <89% Albuterol Sulfate HFA 108 (90 Base) MCG/ACT 2 puffs In halation four time a day as needed for 90 day(s) Cyanocobalamin 250 MCG 1 tablet Orally Once a day for 90 day(s) Calcium 600+D High Potency 600-400 MG-UNIT 1 tablet Or ally Twice aday for 90 day(s) Aquaphor - as directed Externally tid for 90 day(s) Cetirizine HCl 10 MG 1 tablet Orally Once a day for 30 day(s) Jan, Flecainide Acetate 50 mg 2 tablets Orally every 12 hrs for 90 da y(s) Ezetimibe 10 MG 1 tablet Orally Once a day for 90 day(s) Clobetasol Propionate 0.05 % 1 application to affected area Externally bedtime x 4W, then QOHS x 2W, then stop for 90 day(s) Atorvastatin Calcium 40 MG 1 tab Orally Daily for 90 day(s) Benazepril HCl 40 MG 1 tablet Orally bid for 90 day(s) COMPRESSION STOCKINGS 15-20 mmHg as directed _ Daily for 90 day( s) Lancets Use one Lancet 1 lancet subcutaneously Four times a day DX 250 for 90 day(s) Nystatin 015931 UNIT/GM 1 application to affected ar ea Externally Twice a day x 7 days with penile rash for 90 day(s) Apixaban 5 MG 1 tab Orally bid for 90 day(s) Carafate 1 GM 1 tablet Orally four times a day for 90 day(s) Ferrous Sulfate 325 (65 Fe) MG 1 tablet Orally Once a day for 90 day(s) Clotrimazole 10 MG 1 chino Mouth/Throat four times daily f or 14 day(s) Jan, Polyethylene Glycol 1 17 gm orally in 8 oz liquid daily for 90 d ay(s) AmLODIPine Besylate 10 MG 1 tablet Orally Once a day for 90 day( s) Vitamin D 2000 UNIT 1 tab Orally Once a day for 90 day(s) Dexilant 60 MG 1 capsule Orally Once a day for 90 day(s) Next Appt Details Provider Name:Feliz Eliaser, 2020-05-13 0 9:30:00 AM, [address] [place] [address], [phone], Insurance Providers Payer Name Payer Address Payer Phone Insured Name Patient Relati onship to Insured Coverage Start Date Coverage End Date [facility] [address] [facility] [address] SAB[place]HA REYNOSO MEDICAID [employer] [address] [facility] [id number] SABIHA REYNOSO
--- OUTSIDE RECORDS SUMMARY | 2020-03-24 13:00 | CCD | Continuity of Care Document ---
Author Author [facility] Organization Unknown Address [address] [place] [address] Phone [phone] Care Team Providers Care Nsh Teacher Name Role Phone Feliz Fitzgerald M.D. AUTM [phone] Nas Marie M.D. AUTM [phone] Problems Active Problems Provider Date Active cochleovestibular Meniere's disease Mateusz Dietz MD Onset: 08/26/2012 Dysfunction of eustachian tube Mateusz Dietz MD Onset: 08/26/2012 Deviated nasal septum Mateusz Dietz MD Onset: 3 Dizziness and giddiness Mateusz Dietz MD Onset: 013 Epistaxis Mateusz Dietz MD Onset: 02/25/2013 Inactive Meniere's disease Mateusz Dietz MD Onset: 02/06 Chronic rhinitis Mateusz Dietz MD Onset: 03/02/2014 Hypertrophy of nasal turbinates Mateusz Dietz MD Onset: 03/02/2014 Impacted cerumen Diego Oakes MD Onset: 06/09/2014 Disturbance of consciousness NIGHAT Merchant Onset: 02/05 Obstructive sleep apnea syndrome NIGHAT Merchant Onset: 02/21/2018 Chronic pharyngitis Diego Oakes MD Onset: 06/09/2014 Social History Type Date Description Comments Sex Unknown ETOH Use Denies alcohol use Tobacco Use Start: 02/05/63 End: 02/05/07 Patient is a forme r smoker 1-2 packs per day Smoking Status Reviewed: 03/18/20 Patient is a former smoker 1- 2 packs per day Allergies, Adverse Reactions, Alerts Active Allergies Reaction Severity Comments Date Vicodin 02/17/2011 Sulfa 02/17/2011 Doxycycline 02/17/2011 Bacitracin 04/16/2014 Advair Diskus 02/21/2018 Medications Active Medications SIG Qnty Indications Ordering Provide r Date Oxygen 2L hs pebblesklaudia Mateusz Dietz MD 08/26/2012 Cyanocobalamin 1000mcg/ML Solution 500mg tab Unknown Vitamin C one tab by mouth once a day Unknown Multi Vitamin one tab by mouth every day Unknow n Vitamin B 12 500mcg Tablets 1000,1 by mouth every day Unknown Azopt 1% Suspension 1 drop each eye twice per day Unknown Flovent HFA 220mcg/Act Aerosol 1 puff twice a day Unknown Calcium + D3 600-200 Tablets 1 by mouth twice a day Unknown Vitamin D 2000Unit Tablets 1 tab by mouth every day Unknown Dexilant 60mg Capsules DR one by mouth every day Unknown Eliquis 5mg Tablets by mouth twice a day 180tabs Unknown Ferrous Sulfate 325mg by mouth every day Unknown Flecainide Acetate 50mg Tablets by mouth twice a day Unknown Zetia 10mg Tablets qd Unknown Lipitor 40mg Tablets 1 by mouth every day Unknown Lumigan 0.03% Solution 1 drop right eye every evening Unknown Carafate 1GM/10ML Suspension 10 ml po qid 420ml Unknown Norvasc 10mg Tablets po daily 90tabs Unknown Lotensin 40mg Tablets by mouth twice a day 90tabs Unknown Immunizations Description No Information Available Vital Signs Date Vital Result Comment 03/18/2020 11:14am BP Systolic 120 mmHg BP Diastolic 70 mmHg Heart Rate 69 /min O2 % BldC Oximetry 99 % Room Air Body Temperature 98.1 F Height 67 inches 5'7" Weight 142.00 lb BMI (Body Mass Index) 22.2 kg/m2 Rio Body Weight 148 lb Weight 64.411 kg BSA (Body Surface Area) 1.75 m2 06/04/2019 1:06pm BP Systolic 110 mmHg BP Diastolic 64 mmHg Height 67 inches 5'7" Weight 153.00 lb BMI (Body Mass Index) 24.0 kg/m2 Rio Body Weight 148 lb Weight 69.401 kg BSA (Body Surface Area) 1.80 m2 Results Description No Information Available Procedures Description No Information Available Medical Devices Description No Information Available Encounters Description No Information Available Assessments Date Code Description Provider 03/18/2020 G47.33 Obstructive sleep apnea (adult) (pediatric) NIGHAT Merchant Plan of Treatment 03/18/2020 - NIGHAT Merchant* G47.33 Obstructive sleep apnea (adult) (pediatric) * * Follow up:* Follow up as needed Functional Status Description No Information Available Mental Status Description No Information Available Referrals Description No Information Available
--- OUTSIDE RECORDS SUMMARY | 2020-03-24 13:01 | CCD ---
Author Author [facility] Organization [facility] Address Unknown Phone Unavailable Care Team Providers Care Boat Captain Name Role Phone Fons, M Jeri COOKER LOADER Unavailable Unavailable Fons, M Jeri COOKER LOADER Unavailable Unavailable Fons, M Jeri COOKER LOADER Unavailable Unavailable Fons, M Jeri COOKER LOADER Unavailable Unavailable Fons, M Jeri COOKER LOADER Unavailable Unavailable Fons, M Jeri COOKER LOADER Unavailable Unavailable Fons, M Jeri COOKER LOADER Unavailable Unavailable Fons, M Jeri COOKER LOADER Unavailable Unavailable Fons, M Jeri COOKER LOADER Unavailable Unavailable Fons, M Jeri COOKER LOADER Unavailable Unavailable Fons, M Jeri COOKER LOADER Unavailable Unavailable Fons, M Jeri COOKER LOADER Unavailable Unavailable Fons, M Jeri COOKER LOADER Unavailable Unavailable Fons, M Jeri COOKER LOADER Unavailable Unavailable Fons, M Jeri COOKER LOADER Unavailable Unavailable Fons, M Jeri COOKER LOADER Unavailable Unavailable Fons, M Jeri COOKER LOADER Unavailable Unavailable Fons, M Jeri COOKER LOADER Unavailable Unavailable Fons, M Jeri COOKER LOADER Unavailable Unavailable Fons, M Jeri COOKER LOADER Unavailable Unavailable Fons, M Jeri COOKER LOADER Unavailable Unavailable Fons, M Jeri COOKER LOADER Unavailable Unavailable Fons, M Jeri COOKER LOADER Unavailable Unavailable Fons, M Jeri COOKER LOADER Unavailable Unavailable Fons, M Jeri COOKER LOADER Unavailable Unavailable Fons, M Jeri COOKER LOADER Unavailable Unavailable Fons, M Jeri COOKER LOADER Unavailable Unavailable Fons, M Jeri COOKER LOADER Unavailable Unavailable Fons, M Jeri COOKER LOADER Unavailable Unavailable Fons, M Jeri COOKER LOADER Unavailable Unavailable Fons, M Jeri COOKER LOADER Unavailable Unavailable Fons, M Jeri COOKER LOADER Unavailable Unavailable Fons, M Jeri COOKER LOADER Unavailable Unavailable Fons, M Jeri COOKER LOADER Unavailable Unavailable Fons, M Jeri COOKER LOADER Unavailable Unavailable Fons, M Jeri COOKER LOADER Unavailable Unavailable Fons, M Jeri COOKER LOADER Unavailable Unavailable Fons, M Jeri COOKER LOADER Unavailable Unavailable Fons, M Jeri COOKER LOADER Unavailable Unavailable Fons, M Jeri COOKER LOADER Unavailable Unavailable Fons, M Jeri COOKER LOADER Unavailable Unavailable Fons, M Jeri COOKER LOADER Unavailable Unavailable Fons, M Jeri COOKER LOADER Unavailable Unavailable Fons, M Jeri COOKER LOADER Unavailable Unavailable Fons, M Jeri COOKER LOADER Unavailable Unavailable Fons, M Jeri COOKER LOADER Unavailable Unavailable Fons, M Jeir COOKER LOADER Unavailable Unavailable Fons, M Jeri COOKER LOADER Unavailable Unavailable Fons, M Jeri COOKER LOADER Unavailable Unavailable Fons, M Jeri COOKER LOADER Unavailable Unavailable Fons, M Jeri COOKER LOADER Unavailable Unavailable Fons, M Jeri COOKER LOADER Unavailable Unavailable Fons, M Jeri COOKER LOADER Unavailable Unavailable Fons, M Jeri COOKER LOADER Unavailable Unavailable Fons, M Jeri COOKER LOADER Unavailable Unavailable Loredo, L Raeann PA Unavailable Unavailable Loredo, L Raeann PA Unavailable Unavailable Loredo, L Raeann PA Unavailable Unavailable Loredo, L Raeann PA Unavailable Unavailable Loredo, L Raeann PA Unavailable Unavailable Loredo, L Raeann PA Unavailable Unavailable Loredo, L Raeann PA Unavailable Unavailable Loredo, L Raeann PA Unavailable Unavailable Loredo, L Raeann PA Unavailable Unavailable Loredo, L Raeann PA Unavailable Unavailable Loredo, L Raeann PA Unavailable Unavailable Loredo, L Raeann PA Unavailable Unavailable Loredo, L Raeann PA Unavailable Unavailable Loredo, L Raeann PA Unavailable Unavailable Loredo, L Raeann PA Unavailable Unavailable Loredo, L Raeann PA Unavailable Unavailable Loredo, L Raeann PA Unavailable Unavailable Loredo, L Raeann PA Unavailable Unavailable Loredo, L Raeann PA Unavailable Unavailable Loredo, L Raeann PA Unavailable Unavailable Loredo, L Raeann PA Unavailable Unavailable Loredo, L Raeann PA Unavailable Unavailable Loredo, L Raeann PA Unavailable Unavailable Loredo, L Raeann PA Unavailable Unavailable Loredo, L Raeann PA Unavailable Unavailable Loredo, L Reaann PA Unavailable Unavailable Loredo, L Raeann PA Unavailable Unavailable Loredo, L Raeann PA Unavailable Unavailable Loredo, L Raeann PA Unavailable Unavailable Loredo, L Raeann PA Unavailable Unavailable Loredo, L Raeann PA Unavailable Unavailable Loredo, L Raeann PA Unavailable Unavailable Loredo, L Raeann PA Unavailable Unavailable Loredo, L Raeann PA Unavailable Unavailable Loredo, L Raeann PA Unavailable Unavailable Loredo, L Raeann PA Unavailable Unavailable REINDL, EMANUEL GREGORY Unavailable Unavailable REINDL, EMANUEL GREGORY Unavailable Unavailable REINDL, EMANUEL GREGORY Unavailable Unavailable REINDL, EMANUEL GREGORY Unavailable Unavailable REINDL, EMANUEL GREGORY Unavailable Unavailable REINDL, EMANUEL GREGORY Unavailable Unavailable REINDL, EMANUEL GREGORY Unavailable Unavailable REINDL, EMANUEL GREGORY Unavailable Unavailable REINDL, EMANUEL GREGORY Unavailable Unavailable REINDL, EMANUEL GREGORY Unavailable Unavailable REINDL, EMANUEL GREGORY Unavailable Unavailable REINDL, EMANUEL GREGORY Unavailable Unavailable REINDL, EMANUEL GREGORY Unavailable Unavailable REINDL, EMANUEL GREGORY Unavailable Unavailable REINDL, EMANUEL GREGORY Unavailable Unavailable REINDL, EMANUEL GREGORY Unavailable Unavailable REINDL, EMANUEL GREGORY Unavailable Unavailable REINDL, EMANUEL GREGORY Unavailable Unavailable REINDL, EMANUEL GREGORY Unavailable Unavailable REINDL, EMANUEL GREGORY Unavailable Unavailable REINDL, EMANUEL GREGORY Unavailable Unavailable REINDL, EMANUEL GREGORY Unavailable Unavailable REINDL, EMANUEL GREGORY Unavailable Unavailable REINDL, EMANUEL GREGORY Unavailable Unavailable REINDL, EMANUEL GREGORY Unavailable Unavailable REINDL, EMANUEL GREGORY Unavailable Unavailable REINDL, EMANUEL GREGORY Unavailable Unavailable REINDL, EMANUEL GREGORY Unavailable Unavailable REINDL, EMANUEL GREGORY Unavailable Unavailable REINDL, EMANUEL GREGORY Unavailable Unavailable REINDL, EMANUEL GREGORY Unavailable Unavailable REINDL, EMANUEL GREGORY Unavailable Unavailable REINDL, EMANUEL GREGORY Unavailable Unavailable REINDL, EMANUEL GREGORY Unavailable Unavailable REINDL, EMANUEL GREGORY Unavailable Unavailable REINDL, EMANUEL GREGORY Unavailable Unavailable REINDL, EMANUEL GREGORY Unavailable Unavailable REINDL, EMANUEL GREGORY Unavailable Unavailable REINDL, EMANUEL GREGORY Unavailable Unavailable REINDL, EMANUEL GREGORY Unavailable Unavailable REINDL, EMANUEL GREGORY Unavailable Unavailable REINDL, EMANUEL GREGORY Unavailable Unavailable REINDL, EMANUEL GREGORY Unavailable Unavailable REINDL, EMANUEL GREGORY Unavailable Unavailable Maring, Gain PA Unavailable Unavailable Maring, Gian PA Unavailable Unavailable Maring, Gian PA Unavailable Unavailable Maring, Gian PA Unavailable Unavailable Maring, Gian PA Unavailable Unavailable Maring, Gian PA Unavailable Unavailable Maring, Gian PA Unavailable Unavailable Maring, Gian PA Unavailable Unavailable Maring, Gian PA Unavailable Unavailable Maring, Gian PA Unavailable Unavailable Maring, Gian PA Unavailable Unavailable Maring, Gian PA Unavailable Unavailable Maring, Gian PA Unavailable Unavailable Maring, Gian PA Unavailable Unavailable Re-disclosure Warning The records that you are about to access may contain information from federally-assisted alcohol or drug abuse programs. If such information is present, then the following federally mandated warning applies: This information has been disclosed to you from records protected by federal confidentiality rules (42 CFR part 2). The federal rules prohibit you from making any further disclosure of this information unless further disclosure is expressly permitted by the written consent of the person to whom it pertains or as otherwise permitted by 42 CFR part 2. A general authorization for the release of medical or other information is NOT sufficient for this purpose. The Federal rules restrict any use of the information to criminally investigate or prosecute any alcohol or drug abuse patient.The records that you are about to access may contain highly sensitive health information, the redisclosure of which is protected by Article 27-F of the [facility] Public Health law. If you continue you may have access to information: Regarding HIV / AIDS; Provided by facilities licensed or operated by the [facility] Office of Mental Health; or Provided by the [facility] Office for People With Developmental Disabilities. If such information is present, then the following [facility] mandated warning applies: This information has been disclosed to you from confidential records which are protected by state law. State law prohibits you from making any further disclosure of this information without the specific written consent of the person to whom it pertains, or as otherwise permitted by law. Any unauthorized further disclosure in violation of state law may result in a fine or correction sentence or both. A general authorization for the release of medical or other information is NOT sufficient authorization for further disc losure. Allergies and Adverse Reactions Type Description Substance Reaction Status Data Source(s ) Drug allergy Advair Diskus Drug allergy palpations Active eCW1 ( [facility]) Drug allergy Bacitracin Bacitracin blisters Active eCW1 ([facility]) Family History Family Member Name Family Member Gender Family Member Status Date o f Status Description Data Source(s) Unknown Unknown Problem MEDENT ([facility]) Encounters Encounter Providers Location Date Indications Data Source(s ) O Attender: Gian DISLA 03/09/19 12:30:14 PM EST - 03/09/2020 12:39:16 PM EST DocuTap ([facility] ) [place] [address] [address] 03/09/2020 12:00:00 AM EST eCW1 ([facility] includes the [facility]) Unknown [address] [facility] [address] 03/02/2020 12:00:00 AM EST eCW1 ([facility]) Office Visit, Est Pt., Level 3 PC [address] [place] [address] 02/27/2020 12:00:00 AM EST eCW1 ([facility]) Unknown [address] [address] 02/16/2020 12:00:00 AM EST eCW1 ([facility]) Unknown [address] [address] 02/09/2020 12:00:00 AM EST eCW1 (Count includes the [facility]) Outpatient [address] [address] 01/13/2020 12:00:00 AM EST eCW1 ([facility] includes the [facility]) Unknown [address] [address] 12/30/2019 12:00:00 AM EST eCW1 ([facility] includes the [facility]) [place] [address] [address] 12/29/2019 12:00:00 AM EST eCW1 (Count includes the [facility]) Outpatient Attender: Jeri VO SJP.DELIA-SJP 0 12:00:00 AM EDT - 11/26/2019 11:11:51 AM EDT [facility] Unknown [address] [facility] [address] 11/21/2019 12:00:00 AM EDT eCW1 (Count includes the [facility]) Unknown [address] [facility] [place] [address] 11/21/2019 12:00:00 AM EDT eCW1 ([facility]) Outpatient 07/23/2019 04:55:00 AM EDT [facility] Unknown [address] [facility] [facility] [place] [address] 07/11/2019 12:00:00 AM EDT eCW1 (Count includes the [facility]) [place] [address] [facility] [address] 07/10/2019 12:00:00 AM EDT eCW1 ([facility] includes the [facility]) Outpatient [address] [facility] [address] 07/10/2019 12:00:00 AM EDT eCW1 (Count includes the [facility]) Outpatient Attender: EMANUEL Crockett/Champ/Dudley/Todd wisdom 06/04/2019 01:15:00 PM EDT MEDENT ([facility]) Outpatient Attender: Raeann DISLA [email or web address] 05/2019 12:00:00 AM EST [facility] [address] [facility] [address] 04/03/2019 12:00:00 AM EST eCW1 (Count includes the [facility]) Outpatient 03/12/2019 08:16:00 AM EST [facility] [address] [facility] [address] 03/07/2019 12:00:00 AM EST eCW1 (Count includes the [facility]) [facility] [address] [facility] [address] 02/21/2019 12:00:00 AM EST eCW1 (Count includes the [facility]) [facility] [address] [facility] [address] 02/21/2019 12:00:00 AM EST eCW1 (Count includes the [facility]) Immunizations Vaccine Date Status Description Data Source(s) IIV3. This is one of two codes replacing CVX 15, which is being retired. 11/06/2019 11:00:00 AM EDT completed eCW1 ([facility]) IIV3. This is one of two codes replacing CVX 15, which is being retired. 11/06/2019 11:00:00 AM EDT completed eCW1 ([facility]) IIV3. This is one of two codes replacing CVX 15, which is being retired. 11/06/2019 11:00:00 AM EDT completed eCW1 ([facility]) IIV3. This is one of two codes replacing CVX 15, which is being retired. 11/06/2019 11:00:00 AM EDT completed eCW1 ([facility]) IIV3. This is one of two codes replacing CVX 15, which is being retired. 11/06/2019 11:00:00 AM EDT completed eCW1 ([facility]) IIV3. This is one of two codes replacing CVX 15, which is being retired. 11/06/2019 11:00:00 AM EDT completed eCW1 ([facility]) Medications Medication Brand Name Start Date Product Form Dose Route Admi nistrative Instructions Pharmacy Instructions Status Indications Reaction Description Data Source(s) cetirizine hydrochloride 10 MG Oral Tablet Cetirizine HCl 10 MG Cetirizine HCl 10 MG 01/13/2020 12:00:00 AM EST 1.0 {tablet} activ e Cetirizine HCl 10 MG eCW1 ([facility]) cetirizine hydrochloride 10 MG Oral Tablet Cetirizine HCl 10 MG Cetirizine HCl 10 MG 01/13/2020 12:00:00 AM EST 1.0 {tablet} activ e Cetirizine HCl 10 MG eCW1 ([facility]) cetirizine hydrochloride 10 MG Oral Tablet Cetirizine HCl 10 MG Cetirizine HCl 10 MG 01/13/2020 12:00:00 AM EST 1.0 {tablet} activ e Cetirizine HCl 10 MG eCW1 ([facility]) Clotrimazole 10 MG Oral Lozenge Clotrimazole 10 MG 01/13/2020 12:00 :00 AM EST 1.0 {chino} active Clotrimazole 10 MG eCW1 ([facility]) cetirizine hydrochloride 10 MG Oral Tablet Cetirizine HCl 10 MG Cetirizine HCl 10 MG 01/13/2020 12:00:00 AM EST 1.0 {tablet} activ e Cetirizine HCl 10 MG eCW1 ([facility]) Clotrimazole 10 MG Oral Lozenge Clotrimazole 10 MG 01/13/2020 12:00 :00 AM EST 1.0 {chino} active Clotrimazole 10 MG eCW1 ([facility]) cetirizine hydrochloride 10 MG Oral Tablet Cetirizine HCl 10 MG Cetirizine HCl 10 MG 01/13/2020 12:00:00 AM EST 1.0 {tablet} activ e Cetirizine HCl 10 MG eCW1 ([facility]) Clotrimazole 10 MG Oral Lozenge Clotrimazole 10 MG 01/13/2020 12:00 :00 AM EST 1.0 {chino} active Clotrimazole 10 MG eCW1 ([facility]) Clotrimazole 10 MG Oral Lozenge Clotrimazole 10 MG 01/13/2020 12:00 :00 AM EST 1.0 {chino} active Clotrimazole 10 MG eCW1 ([facility]) cetirizine hydrochloride 10 MG Oral Tablet Cetirizine HCl 10 MG Cetirizine HCl 10 MG 01/13/2020 12:00:00 AM EST 1.0 {tablet} activ e Cetirizine HCl 10 MG eCW1 ([facility]) Clotrimazole 10 MG Oral Lozenge Clotrimazole 10 MG 01/13/2020 12:00 :00 AM EST 1.0 {chino} active Clotrimazole 10 MG eCW1 ([facility]) Clotrimazole 10 MG Oral Lozenge Clotrimazole 10 MG 01/13/2020 12:00 :00 AM EST 1.0 {chino} active Clotrimazole 10 MG eCW1 ([facility]) Loratadine 10 MG Oral Tablet Loratadine 10 MG 07/11/2019 12:00:00 A M EDT 1.0 {tablet} active Loratadine 10 MG eCW1 ( [facility]) Loratadine 10 MG Oral Tablet Loratadine 10 MG 07/11/2019 12:00:00 A M EDT 1.0 {tablet} active Loratadine 10 MG eCW1 ( [facility]) Loratadine 10 MG Oral Tablet Loratadine 10 MG 07/11/2019 12:00:00 A M EDT 1.0 {tablet} active Loratadine 10 MG eCW1 ( [facility]) montelukast 10 MG Oral Tablet Montelukast Sodium 10 MG Farhad lukast Sodium 10 MG 07/11/2019 12:00:00 AM EDT 1.0 {tablet} active Montelukast Sodium 10 MG eCW1 ([facility]) Loratadine 10 MG Oral Tablet Loratadine 10 MG 07/11/2019 12:00:00 A M EDT 1.0 {tablet} active Loratadine 10 MG eCW1 ( [facility]) Loratadine 10 MG Oral Tablet Loratadine 10 MG 07/11/2019 12:00:00 A M EDT 1.0 {tablet} active Loratadine 10 MG eCW1 ( [facility]) montelukast 10 MG Oral Tablet Montelukast Sodium 10 MG Farhad lukast Sodium 10 MG 07/11/2019 12:00:00 AM EDT 1.0 {tablet} active Montelukast Sodium 10 MG eCW1 ([facility]) montelukast 10 MG Oral Tablet Montelukast Sodium 10 MG Farhad lukast Sodium 10 MG 07/11/2019 12:00:00 AM EDT 1.0 {tablet} active Montelukast Sodium 10 MG eCW1 ([facility]) Loratadine 10 MG Oral Tablet Loratadine 10 MG 07/11/2019 12:00:00 A M EDT 1.0 {tablet} active Loratadine 10 MG eCW1 ( [facility]) Loratadine 10 MG Oral Tablet Loratadine 10 MG 07/11/2019 12:00:00 A M EDT 1.0 {tablet} active Loratadine 10 MG eCW1 ( [facility]) POLYETHYLENE GLYCOL 3350 142 MG/ML Oral Solution [Miralax] M iralax 06/04/2019 12:00:00 AM EDT active M EDENT ([facility], ) POLYETHYLENE GLYCOL 3350 105 MG/ML / Pot assium Chloride 0.45366 MEQ/ML / Sodium Bicarbonate 0.017 MEQ/ML / Sodium Chloride 0.0479 MEQ/ML Oral Solution [TriLyte] Trilyte 06/04/2019 12:00:00 AM EDT active MEDENT ([facility], ) Magnesium Hydroxide 80 MG/ML Oral Suspension Milk Of Magnesi a 06/04/2019 12:00:00 AM EDT ORAL active M EDENT ([facility], ) Insurance Providers Payer name Policy type / Coverage type Policy ID Covered libertarian ID Covered libertarian's relationship to pal Policy Pal Plan Information MEDICARE COMPLETE [id number] SP [id number] EMEDNY [id number] SP [id number] [facility] [id number] SP [id number] [facility] Commercial [employer] Co. [id number] Self [id number] [facility] [id number] SP [id number] SELF PAY ONLY [id number] SP [id number] MEDICAID [id number] [id number] [facility] MEDICARE [id number] Mel [id number] [facility] O [id number] S [id number] MEDICAID [id number] MEDICAID [id number] SP [id number] [facility] MEDICAID [id number] Mel [id number] ANSI-Medicare Part B [id number] [facility]-Medicaid [id number] ANSI-Not a Secondary Insurance [id number] ANSI-Not a Secondary Insurance [id number] ANSI-Medicare Part B [id number] ANSI-Medicaid [id number] ANSI-Medicaid [id number] ANSI-Not a Secondary Insurance [id number] ANSI-Medicare Part B [id number] ANSI-Medicaid [id number] ANSI-Not a Secondary Insurance [id number] ANSI-Medicare Part B [id number] ANSI-Medicare Part B [id number] ANSI-Not a Secondary Insurance [id number] ANSI-Medicaid [id number] ANSI-Medicaid [id number] ANSI-Medicare Part B [id number] ANSI-Not a Secondary Insurance [id number] ANSI-Not a Secondary Insurance [id number] ANSI-Medicaid [id number] ANSI-Medicare Part B [id number] ANSI-Medicaid [id number] ANSI-Medicare Part B [id number] MEDICARE [id number] SP [id number] [place] [id number] Self [id number] [place] [id number] Self [id number] [place] Medicare Primary [id number] Self [id number] ANSI-Medicaid [id number] ANSI-Medicare Part B [id number] ANSI-Medicare Part B [id number] ANSI-Medicaid [id number] ANSI-Medicaid [id number] ANSI-Medicare Part B [id number] ANSI-Medicaid [id number] ANSI-Medicare Part B [id number] ANSI-Medicaid [id number] ANSI-Medicare Part B [id number] ANSI-Medicaid [id number] ANSI-Medicare Part B [id number] ANSI-Medicare Part B [id number] ANSI-Medicaid [id number] ANSI-Medicaid [id number] ANSMedicare Part B [id number] ANSI-Medicaid [id number] ANSI-Medicare Part B [id number] MEDICARE [id number] SP [id number] A MEDICARE C [id number] S [id number] A MEDICAID [id number] SP [id number] MEDICARE [id number] SP [id number] A MEDICAID [id number] SP [id number] MEDICARE [id number] SP [id number] A MEDICAID [id number] SP [id number] MEDICARE [id number] SP [id number] A BLUE [employer] PLAN [id number] SP [id number] HMO BLUE [id number] SP [id number] Problems, Conditions, and Diagnoses Code Display Name Description Problem Type Effective Dates Data Source(s) B37.0 [id number] Oral candidiasis Problem 01/13/2020 12:00:00 AM EST eCW1 ([facility]) G47.33 Obstructive sleep apnea (adult) (pediatr ic) Obstructive sleep apnea (adult) (pediatr Diagnosis 11/26/2019 10:19:46 AM EDT [facility] I48.0 Paroxysmal atrial fibrillation Paroxysmal atrial fibri llation Diagnosis 11/26/2019 10:19:46 AM EDT [facility] E78.00 Pure hypercholesterolemia, unspecified P ure hypercholesterolemia, unspecified Diagnosis 11/26/2019 10:19:46 AM EDT [facility] E11.9 Type 2 diabetes mellitus without complic ations Type 2 diabetes mellitus without complic Diagnosis 11/26/2019 10:19:46 AM EDT [facility] I10 Essential (primary) hypertension Essential (primary) h ypertension Diagnosis 11/26/2019 10:19:46 AM EDT [facility] Surgeries/Procedures Procedure Description Date Indications Data Source(s) COLONOSCOPY W/BIOPSY SINGLE/MULTIPLE 07/10/2019 12:00: 00 AM EDT eCW1 ([facility]) SHAVE F,E,E,N,L,M 0.6-1 CM 04/03/2019 12:00:00 AM EST eCW1 ([facility]) Office Visit, Est Pt., Level 4 PC 02/21/2019 12:00:00 AM EST eCW1 ([facility]) Office Visit, Est Pt., Level 3 FC 02/21/2019 12:00:00 AM EST eCW1 ([facility]) Results ID Date Data Source [id number] 02/07/2020 11:36:00 AM EST [facility] Name Value Range Interpretation Code Description Data Margi rce(s) Supporting Document(s) SARS coronavirus 2 RNA [Presence] in Res piratory specimen by APRIL with probe detection [facility] This lab was ordered by [facility] a nd reported by [facility]. ID Date Data Source [id number] 11/26/2019 11:28:48 [facility]FORMATION[facility] MRN Name Date of Age Gend*PT [id number] Sabiha Reynoso 1950 69 years M ---PT Location Admission Date/Time Visit ID Attending Provider --- --- --- --- EPI ID CSN Admitting Provider [id number] ---Addended by: JERI IRENE on: 11/26/2019 11:28 AM Modules accepted: Orders Name Value Range Interpretation Code Description Data Margi rce(s) Supporting Document(s) Procedure Social History Code Duration Value Status Description Data Source(s ) Smoking 03/18/2020 12:00:00 AM EST - 02/05/2007 12:00:00 AM EST Patient is a former smoker completed Patient is a former smoker [facility] ([facility], ) Smoking 02/27/2020 12:00:00 AM EST Former Smoker completed Former Smoker eCW1 ([facility]) Smoking 02/27/2020 12:00:00 AM EST Former Smoker completed Former Smoker eCW1 ([facility]) Smoking 02/27/2020 12:00:00 AM EST Former Smoker completed Former Smoker eCW1 ([facility]) Smoking 01/13/2020 12:00:00 AM EST Former Smoker completed Former Smoker eCW1 ([facility]) Smoking 01/13/2020 12:00:00 AM EST Former Smoker completed Former Smoker eCW1 ([facility]) Smoking 01/13/2020 12:00:00 AM EST Former Smoker completed Former Smoker eCW1 ([facility]) Smoking 07/10/2019 12:00:00 AM EDT Former Smoker completed Former Smoker eCW1 ([facility]) Smoking 07/10/2019 12:00:00 AM EDT Former Smoker completed Former Smoker eCW1 ([facility]) Smoking 07/10/2019 12:00:00 AM EDT Former Smoker completed Former Smoker eCW1 ([facility]) Smoking 07/10/2019 12:00:00 AM EDT Former Smoker completed Former Smoker eCW1 ([facility]) Smoking 07/10/2019 12:00:00 AM EDT Former Smoker completed Former Smoker eCW1 ([facility]) Smoking 07/10/2019 12:00:00 AM EDT Former Smoker completed Former Smoker eCW1 ([facility]) Smoking 07/10/2019 12:00:00 AM EDT Former Smoker completed Former Smoker eCW1 ([facility]) Vital Signs ID Date Data Source UNK Name Value Range Interpretation Code Description Data Source(s) Body surface area Derived from formula 1.75 m2 1.75 m2 [facility] ([facility]) Body weight 64.411 kg 64.411 kg [facility] ([facility] [place] body weight 148 [lb_av] 148 [lb_av] [facility] Body mass index (BMI) [Ratio] 22.2 kg/m2 22.2 k g/m2 [facility] ([facility]) Body weight 142.00 [lb_av] 142.00 [lb_av] [facility] Body height 67 [in_i] 67 [in_i] [facility] ([facility]) 5'7" Body temperature 98.1 [degF] 98.1 [degF] [facility] ([facility]) Oxygen saturation in Arterial blood by Pulse oximetry 99 % 99 % [facility] ([facility]) Room Air Heart rate 69 /min 69 /min [facility] ([facility]) Diastolic blood pressure 70 mm[Hg] 70 mm[Hg] [facility] ([facility]) Systolic blood pressure 120 mm[Hg] 120 mm[Hg] [facility] Diastolic blood pressure 70 mm[Hg] 70 mm[Hg] eCW1 ([facility]) Systolic blood pressure 120 mm[Hg] 120 mm[Hg] e CW1 ([facility]) Body temperature 98 [degF] 98 [degF] eCW1 ([facility]) Respiratory rate 20 /min 20 /min eCW1 ([facility]) Heart rate 20 /min 20 /min eCW1 ([facility]) Body mass index (BMI) [Ratio] 21.44 kg/m2 21.44 kg/m2 eCW1 ([facility]) Body height 68 [in_i] 68 [in_i] eCW1 ([facility]) Body weight 141 [lb_av] 141 [lb_av] eCW1 ([facility]) Diastolic blood pressure 62 mm[Hg] 62 mm[Hg] eCW1 ([facility]) Systolic blood pressure 110 mm[Hg] 110 mm[Hg] e CW1 ([facility]) Body temperature 98.1 [degF] 98.1 [degF] eCW1 ( [facility]) Respiratory rate 20 /min 20 /min eCW1 ([facility]) Heart rate 77 /min 77 /min eCW1 ([facility]) Body mass index (BMI) [Ratio] 22.74 kg/m2 22.74 kg/m2 eCW1 ([facility]) Body height 68 [in_i] 68 [in_i] eCW1 ([facility]) Body weight 149.6 [lb_av] 149.6 [lb_av] eCW1 ([facility]) Diastolic blood pressure 62 mm[Hg] 62 mm[Hg] eCW1 ([facility]) Systolic blood pressure 120 mm[Hg] 120 mm[Hg] e CW1 ([facility]) Body temperature 99.2 [degF] 99.2 [degF] eCW1 ( [facility]) Respiratory rate 20 /min 20 /min eCW1 ([facility]) Heart rate 81 /min 81 /min eCW1 ([facility]) Body mass index (BMI) [Ratio] 23.78 kg/m2 23.78 kg/m2 eCW1 ([facility]) Body height 68 [in_i] 68 [in_i] eCW1 ([facility]) Body weight 156.4 [lb_av] 156.4 [lb_av] eCW1 ([facility]) Body surface area Derived from formula 1.80 m2 1.80 m2 [facility] ([facility]) Body weight 69.401 kg 69.401 kg [facility] ([facility]) [place] body weight 148 [lb_av] 148 [lb_av] [facility] Body mass index (BMI) [Ratio] 24.0 kg/m2 24.0 k g/m2 [facility] ([facility]) Body weight 153.00 [lb_av] 153.00 [lb_av] [facility] T ([facility]) Body height 67 [in_i] 67 [in_i] [facility] ([facility]) 5'7" Diastolic blood pressure 64 mm[Hg] 64 mm[Hg] [facility] ([facility]) Systolic blood pressure 110 mm[Hg] 110 mm[Hg] [facility] Diastolic blood pressure 78 mm[Hg] 78 mm[Hg] eCW1 ([facility]) Systolic blood pressure 120 mm[Hg] 120 mm[Hg] e CW1 ([facility]) Body temperature 98.7 [degF] 98.7 [degF] eCW1 ( [facility]) Respiratory rate 20 /min 20 /min eCW1 ([facility]) Heart rate 72 /min 72 /min eCW1 ([facility]) Body mass index (BMI) [Ratio] 23.63 kg/m2 23.63 kg/m2 W1 ([facility]) Body height 68 [in_us] 68 [in_us] eCW1 ([facility]) Body weight Measured 155.4 [lb_av] 155.4 [lb_av ] eCW1 ([facility]) Diastolic blood pressure 72 mm[Hg] 72 mm[Hg] eCW1 ([facility]) Systolic blood pressure 128 mm[Hg] 128 mm[Hg] e CW1 ([facility]) Body temperature 98.1 [degF] 98.1 [degF] eCW1 ( [facility]) Respiratory rate 20 /min 20 /min eCW1 ([facility]) Heart rate 74 /min 74 /min eCW1 ([facility]) Body mass index (BMI) [Ratio] 22.87 kg/m2 22.87 kg/m2 eCW1 ([facility]) Body height 68 [in_us] 68 [in_us] eCW1 ([facility]) Body weight Measured 150.4 [lb_av] 150.4 [lb_av ] eCW1 ([facility]) Diastolic blood pressure 72 mm[Hg] 72 mm[Hg] eCW1 ([facility]) Systolic blood pressure 128 mm[Hg] 128 mm[Hg] e CW1 ([facility]) Body temperature 98.1 [degF] 98.1 [degF] eCW1 ( [facility]) Respiratory rate 20 /min 20 /min eCW1 ([facility]) Heart rate 74 /min 74 /min eCW1 ([facility]) Body mass index (BMI) [Ratio] 22.87 kg/m2 22.87 kg/m2 eCW1 ([facility]) Body height 68 [in_us] 68 [in_us] eCW1 ([facility]) Body weight Measured 150.4 [lb_av] 150.4 [lb_av ] eCW1 ([facility]) Patient Treatment Plan of Care Planned Activity Planned Date Details Description Data Source (s) cetirizine hydrochloride 10 MG Oral Tablet 01/13/2020 12:00:[address] eCW1 ([facility]) Clotrimazole 10 MG Oral Lozenge 01/13/2020 12:00:00 AM EST eCW1 ([facility]) cetirizine hydrochloride 10 MG Oral Tablet 01/13/2020 12:00:[address] eCW1 ([facility]) Clotrimazole 10 MG Oral Lozenge 01/13/2020 12:00:00 AM EST eCW1 ([facility]) cetirizine hydrochloride 10 MG Oral Tablet 01/13/2020 12:00:[address] eCW1 ([facility]) Clotrimazole 10 MG Oral Lozenge 01/13/2020 12:00:00 AM EST eCW1 ([facility]) Loratadine 10 MG Oral Tablet 07/11/2019 12:00:00 AM EDT eCW1 ([facility]) Loratadine 10 MG Oral Tablet 07/11/2019 12:00:00 AM EDT eCW1 ([facility]) Loratadine 10 MG Oral Tablet 07/11/2019 12:00:00 AM EDT eCW1 ([facility]) Loratadine 10 MG Oral Tablet 07/11/2019 12:00:00 AM EDT eCW1 ([facility]) montelukast 10 MG Oral Tablet 07/11/2019 12:00:00 AM EDT eCW1 ([facility]) Loratadine 10 MG Oral Tablet 07/11/2019 12:00:00 AM EDT eCW1 ([facility]) montelukast 10 MG Oral Tablet 07/11/2019 12:00:00 AM EDT eCW1 ([facility]) Loratadine 10 MG Oral Tablet 07/11/2019 12:00:00 AM EDT eCW1 ([facility]) Loratadine 10 MG Oral Tablet 07/11/2019 12:00:00 AM EDT eCW1 ([facility]) montelukast 10 MG Oral Tablet 07/11/2019 12:00:00 AM EDT eCW1 ([facility])
--- OUTSIDE RECORDS SUMMARY | 2020-03-24 13:01 | CCD ---
Author Author [facility] Organization [facility] Address Unknown Phone Unavailable Care Team Providers Care Pediatrician/Medical Doctor Name Role Phone Feliz Fitzgerald Unavailable PROBLEMS Type Condition ICD9-CM Code PUN17-[place] Code Onset Dates Condition S tatus SNOMED Code Notes Problem Hyperlipidemia E78.5 Active 70314419 Problem Atrial fibrillation I48.91 Active 66027699 Problem Prostate cancer screening Z12.5 Active 702649 005 Problem Hypertension I10 Active 70116020 Problem CKD (chronic kidney disease) stage 2, GFR 60-89 ml/min N18.2 Active 934794906 Problem IFG (impaired fasting glucose) R73.01 Active 3 42444772 Problem Candidiasis of penis B37.42 Active 20071290 Problem GERD (gastroesophageal reflux disease) K21.9 A ctive 961818277 Problem Benign prostatic hyperplasia with lower urinary tract symptoms N40.1 Active 083584042 Problem Essential tremor G25.0 Active 965640995 Problem Vitamin D deficiency E55.9 Active 31579810 Problem Colon cancer screening Z12.11 Active 148006773 Problem B12 deficiency E53.8 Active 072216951 Problem Recurrent sinusitis J32.9 Active 091745993 Problem Gastritis K29.70 Active 4132806 Problem Oral candidiasis B37.0 Active 50538551 Problem Non-seasonal allergic rhinitis due to other allergic rosario er J30.89 Active 72075764 Problem COPD (chronic obstructive pulmonary disease) J44.9 Active 19905950 Problem Fe deficiency anemia D50.9 Active 75038154 Problem Eczema of both hands L30.9 Active 058706035 Problem Obstructive sleep apnea syndrome G47.33 Active 31412377 Problem Venous insufficiency of both lower extremities I87 .2 Active 246207474 Problem Constipation, chronic K59.09 Active 990437176 ALLERGIES Allergen (clinical drug ingredient) Drug/Non Drug Allergy do cumented on EMR Reaction Allergy Type Onset Date Status bacitracin Bacitracin([facility] Code:[address]-03) blisters Drug Allergy Active Sulfa (for allergy use only) Rash Drug Allergy Active Advair Diskus palpations Drug Allergy Active ENCOUNTERS from 1950 to 2020-02-10 Encounter Location Date Provider Diagnosis [facility] [address] [place] [address] Feb, 021 Feliz Fitzgerald IMMUNIZATIONS Vaccine Route [...] then stop for 90 day(s) Active Nystatin 353214 UNIT/GM 1 application to affected ar ea [...] Information RESULTS No Results REASON FOR VISIT update MEDICAL (GENERAL) HISTORY Type Description Date Medical History atrial fibrillation, paroxys mal-03/2012 Holter 3 brief runs atrial tachycardia-[facility] Medical History anemia, secondary to iron deficiency/chr onic kidney disease Medical History hypertension-January 2008 n ormal TTE-Dr. 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 09/2016 Surgical History Left cataract removal and St ent implant- laser surgery for xybymkoq-WKVWJ-BLF 03/25 Surgical History RLQ-TR-Bdhdz-[facility] 07/23 Hospitalization History none Goals Section [...] day DX 250 for 90 day(s) Nystatin 094791 UNIT/GM 1 application to affected ar ea [...] 90 day(s) Next Appt Details Provider Name:Feliz Fitzgerald, 2020-05-13 0 9:30:00 AM, [address] [place] [address], [phone], Insurance Providers Payer Name Payer Address Payer Phone Insured Name Patient Relati onship to Insured Coverage Start Date Coverage End Date MEDICA[employer] [address] [facility] [id number] [facility] [address] [facility] [id number] SABIHA MARSHALL
--- OUTSIDE RECORDS SUMMARY | 2020-03-24 13:43 | CCD ---
Author Author [facility] Organization [facility] Address Unknown Phone Unavailable Care Team Providers Care Dance Master Name Role Phone Fons, M Jeri BOOM TRUCK DRIVER Unavailable Unavailable Fons, M Jeri BOOM TRUCK DRIVER Unavailable Unavailable Fons, M Jeri BOOM TRUCK DRIVER Unavailable Unavailable Fons, M Jeri BOOM TRUCK DRIVER Unavailable Unavailable Fons, M Jeri BOOM TRUCK DRIVER Unavailable Unavailable Fons, M Jeri BOOM TRUCK DRIVER Unavailable Unavailable Fons, M Jeri BOOM TRUCK DRIVER Unavailable Unavailable Fons, M Jeri BOOM TRUCK DRIVER Unavailable Unavailable Fons, M Jeri BOOM TRUCK DRIVER Unavailable Unavailable Fons, M Jeri BOOM TRUCK DRIVER Unavailable Unavailable Fons, M Jeri BOOM TRUCK DRIVER Unavailable Unavailable Fons, M Jeri BOOM TRUCK DRIVER Unavailable Unavailable Fons, M Jeri BOOM TRUCK DRIVER Unavailable Unavailable Fons, M Jeri BOOM TRUCK DRIVER Unavailable Unavailable Fons, M Jeri BOOM TRUCK DRIVER Unavailable Unavailable Fons, M Jeri BOOM TRUCK DRIVER Unavailable Unavailable Fons, M Jeri BOOM TRUCK DRIVER Unavailable Unavailable Fons, M Jeri BOOM TRUCK DRIVER Unavailable Unavailable Fons, M Jeri BOOM TRUCK DRIVER Unavailable Unavailable Fons, M Jeri BOOM TRUCK DRIVER Unavailable Unavailable Fons, M Jeri BOOM TRUCK DRIVER Unavailable Unavailable Fons, M Jeri BOOM TRUCK DRIVER Unavailable Unavailable Fons, M Jeri BOOM TRUCK DRIVER Unavailable Unavailable Fons, M Jeri BOOM TRUCK DRIVER Unavailable Unavailable Fons, M Jeri BOOM TRUCK DRIVER Unavailable Unavailable Fons, M Jeri BOOM TRUCK DRIVER Unavailable Unavailable Fons, M Jeri BOOM TRUCK DRIVER Unavailable Unavailable Fons, M Jeri BOOM TRUCK DRIVER Unavailable Unavailable Fons, M Jeri BOOM TRUCK DRIVER Unavailable Unavailable Fons, M Jeri BOOM TRUCK DRIVER Unavailable Unavailable Fons, M Jeri BOOM TRUCK DRIVER Unavailable Unavailable Fons, M Jeri BOOM TRUCK DRIVER Unavailable Unavailable Fons, M Jeri BOOM TRUCK DRIVER Unavailable Unavailable Fons, M Jeri BOOM TRUCK DRIVER Unavailable Unavailable Fons, M Jeri BOOM TRUCK DRIVER Unavailable Unavailable Fons, M Jeri BOOM TRUCK DRIVER Unavailable Unavailable Fons, M Jeri BOOM TRUCK DRIVER Unavailable Unavailable Fons, M Jeri BOOM TRUCK DRIVER Unavailable Unavailable Fons, M Jeri BOOM TRUCK DRIVER Unavailable Unavailable Fons, M Jeri BOOM TRUCK DRIVER Unavailable Unavailable Fons, M Jeri BOOM TRUCK DRIVER Unavailable Unavailable Fons, M Jeri BOOM TRUCK DRIVER Unavailable Unavailable Fons, M Jeri BOOM TRUCK DRIVER Unavailable Unavailable Fons, M Jeri BOOM TRUCK DRIVER Unavailable Unavailable Fons, M Jeri BOOM TRUCK DRIVER Unavailable Unavailable Fons, M Jeir BOOM TRUCK DRIVER Unavailable Unavailable Fons, M Jeri BOOM TRUCK DRIVER Unavailable Unavailable Fons, M Jeri BOOM TRUCK DRIVER Unavailable Unavailable Fons, M Jeri BOOM TRUCK DRIVER Unavailable Unavailable Fons, M Jeri BOOM TRUCK DRIVER Unavailable Unavailable Fons, M Jeri BOOM TRUCK DRIVER Unavailable Unavailable Fons, M Jeri BOOM TRUCK DRIVER Unavailable Unavailable Fons, M Jeri BOOM TRUCK DRIVER Unavailable Unavailable Fons, M Jeri BOOM TRUCK DRIVER Unavailable Unavailable Fons, M Jeri BOOM TRUCK DRIVER Unavailable Unavailable Loredo, L Raeann PA Unavailable Unavailable Loreod, L Raeann PA Unavailable Unavailable Loredo, L [...] Unavailable REINDL, EMANUEL GREGORY Unavailable Unavailable REINDL, EMNAUEL GREGORY Unavailable Unavailable REINDL, EMANUEL GREGORY Unavailable [...] Unavailable REINDL, EMANUEL GREGORY Unavailable Unavailable Maring, Gian PA Unavailable Unavailable [...] is protected by Article 27-F of the [facility] Public Health law. If you continue you may have access to information: Regarding HIV / AIDS; Provided by facilities licensed or operated by the [facility] Office of Mental Health; or Provided by the [facility] Office for People With Developmental Disabilities. If such information is present, then the following [facility] mandated warning applies: This information has been [...] law may result in a fine or senior living sentence or both. A general authorization for the release of medical or other information is NOT sufficient authorization for further disc losure. Allergies and Adverse Reactions Type Description Substance Reaction Status Data Source(s ) Drug allergy Advair Diskus Drug allergy palpations Active eCW1 ( [facility]) Drug allergy Bacitracin Bacitracin blisters Active eCW1 ([facility]) Family History Family Member Name Family Member Gender Family Member Status Date o f Status Description Data Source(s) Unknown Unknown Problem MEDENT ([facility]) Encounters Encounter Providers Location Date Indications Data Source(s ) O Attender: Gian DISLA 03/09/19 12:30:14 PM EST - 03/09/2020 12:39:16 PM EST DocuTap ([facility] ) [place] [address] [facility] [address] 03/09/2020 12:00:00 AM EST eCW1 ([facility]) [place] [address] [facility] [address] 03/02/2020 12:00:00 AM EST [facility] Office Visit, Est Pt., Level 3 PC [address] [place] [address] 02/27/2020 12:00:00 AM EST eCW1 ([facility]) [place] [address] [address] 02/16/2020 12:00:00 AM EST [facility]CW1 [facility] [place] [address] [facility] [address] 02/09/2020 12:00:00 AM EST eCW1 ([facility]) Outpatient [address] [address] 01/13/2020 12:00:00 AM EST eCW1 ([facility]) [place] [address] [facility] [address] 12/30/2019 12:00:00 AM EST eCW1 ([facility]) [place] [address] [facility] [address] 12/29/2019 12:00:00 AM EST eCW1 ([facility]) Outpatient Attender: Jeri VO SJP.DELIA-SJP 0 12:00:00 AM EDT - 11/26/2019 11:11:51 AM EDT [facility] [place] [address] [facility] [address] 11/21/2019 12:00:00 AM EDT eCW1 ([facility]) [place] [address] [place] [address] 11/21/2019 12:00:00 AM EDT [facility]CW1 [facility] Outpatient 07/23/2019 04:55:00 AM EDT [facility] [place] [address] [place] [address] 07/11/2019 12:00:00 AM EDT eCW1 ([facility]) [place] [address] [facility] [address] 07/10/2019 12:00:00 AM EDT eCW1 ([facility]) [place] [address] [facility] [address] 07/10/2019 12:00:00 AM EDT eCW1 ([facility]) Outpatient Attender: EMANUEL Crockett/Champ/Dudley/Todd wisdom 06/04/2019 01:15:00 PM EDT MEDENT ([facility]) Outpatient Attender: Raeann DISLA SJDeirdre.DELIA-SJP.DELIA 05/2019 12:00:00 AM EST [facility] [address] [facility] [address] 04/03/2019 12:00:00 AM EST eCW1 ([facility]) Outpatient 03/12/2019 08:16:00 AM EST [facility] [address] [facility] [address] 03/07/2019 12:00:00 AM EST eCW1 ([facility]) [facility] [address] [facility] [address] 02/21/2019 12:00:00 AM EST eCW1 ([facility]) [facility] [address] [facility] [address] 02/21/2019 12:00:00 AM EST eCW1 ([facility]) Immunizations Vaccine Date Status Description Data Source(s) IIV3. This is one of two codes replacing CVX 15, which is being retired. 11/06/2019 11:00:00 AM EDT completed eCW1 ([facility]) IIV3. This is one of two codes replacing CVX 15, which is being retired. 11/06/2019 11:00:00 AM EDT completed eCW1 ([facility]) IIV3. This is one of two codes replacing CVX 15, which is being retired. 11/06/2019 11:00:00 AM EDT completed eCW1 ([facility]) IIV3. This is one of two codes replacing CVX 15, which is being retired. 11/06/2019 11:00:00 AM EDT completed eCW1 ([facility]) IIV3. This is one of two codes replacing CVX 15, which is being retired. 11/06/2019 11:00:00 AM EDT completed eCW1 ([facility]) IIV3. This is one of two codes replacing CVX 15, which is being retired. 11/06/2019 11:00:00 AM EDT completed eCW1 ([facility]) Medications Medication Brand Name Start Date Product Form Dose Route Admi nistrative Instructions Pharmacy Instructions Status Indications Reaction Description Data Source(s) cetirizine hydrochloride 10 MG Oral Tablet Cetirizine HCl 10 MG Cetirizine HCl 10 MG 01/13/2020 12:00:00 AM EST 1.0 {tablet} activ e Cetirizine HCl 10 MG eCW1 ([facility]) cetirizine hydrochloride 10 MG Oral Tablet Cetirizine HCl 10 MG Cetirizine HCl 10 MG 01/13/2020 12:00:00 AM EST 1.0 {tablet} activ e Cetirizine HCl 10 MG eCW1 ([facility]) cetirizine hydrochloride 10 MG Oral Tablet Cetirizine HCl 10 MG Cetirizine HCl 10 MG 01/13/2020 12:00:00 AM EST 1.0 {tablet} activ e Cetirizine HCl 10 MG eCW1 ([facility]) Clotrimazole 10 MG Oral Lozenge Clotrimazole 10 MG 01/13/2020 12:00 :00 AM EST 1.0 {chino} active Clotrimazole 10 MG eCW1 ([facility]) cetirizine hydrochloride 10 MG Oral Tablet Cetirizine HCl 10 MG Cetirizine HCl 10 MG 01/13/2020 12:00:00 AM EST 1.0 {tablet} activ e Cetirizine HCl 10 MG eCW1 ([facility]) Clotrimazole 10 MG Oral Lozenge Clotrimazole 10 MG 01/13/2020 12:00 :00 AM EST 1.0 {chino} active Clotrimazole 10 MG eCW1 ([facility]) cetirizine hydrochloride 10 MG Oral Tablet Cetirizine HCl 10 MG Cetirizine HCl 10 MG 01/13/2020 12:00:00 AM EST 1.0 {tablet} activ e Cetirizine HCl 10 MG eCW1 ([facility]) Clotrimazole 10 MG Oral Lozenge Clotrimazole 10 MG 01/13/2020 12:00 :00 AM EST 1.0 {chino} active Clotrimazole 10 MG eCW1 ([facility]) Clotrimazole 10 MG Oral Lozenge Clotrimazole 10 MG 01/13/2020 12:00 :00 AM EST 1.0 {chino} active Clotrimazole 10 MG eCW1 ([facility]) cetirizine hydrochloride 10 MG Oral Tablet Cetirizine HCl 10 MG Cetirizine HCl 10 MG 01/13/2020 12:00:00 AM EST 1.0 {tablet} activ e Cetirizine HCl 10 MG eCW1 ([facility]) Clotrimazole 10 MG Oral Lozenge Clotrimazole 10 MG 01/13/2020 12:00 :00 AM EST 1.0 {chino} active Clotrimazole 10 MG eCW1 ([facility]) Clotrimazole 10 MG Oral Lozenge Clotrimazole 10 MG 01/13/2020 12:00 :00 AM EST 1.0 {chino} active Clotrimazole 10 MG eCW1 ([facility]) Loratadine 10 MG Oral Tablet Loratadine 10 MG 07/11/2019 12:00:00 A M EDT 1.0 {tablet} active Loratadine 10 MG eCW1 ( [facility]) Loratadine 10 MG Oral Tablet Loratadine 10 MG 07/11/2019 12:00:00 A M EDT 1.0 {tablet} active Loratadine 10 MG eCW1 ( [facility]) Loratadine 10 MG Oral Tablet Loratadine 10 MG 07/11/2019 12:00:00 A M EDT 1.0 {tablet} active Loratadine 10 MG eCW1 ( [facility]) montelukast 10 MG Oral Tablet Montelukast Sodium 10 MG Farhad lukast Sodium 10 MG 07/11/2019 12:00:00 AM EDT 1.0 {tablet} active Montelukast Sodium 10 MG eCW1 ([facility]) Loratadine 10 MG Oral Tablet Loratadine 10 MG 07/11/2019 12:00:00 A M EDT 1.0 {tablet} active Loratadine 10 MG eCW1 ( [facility]) Loratadine 10 MG Oral Tablet Loratadine 10 MG 07/11/2019 12:00:00 A M EDT 1.0 {tablet} active Loratadine 10 MG eCW1 ( [facility]) montelukast 10 MG Oral Tablet Montelukast Sodium 10 MG Farhad lukast Sodium 10 MG 07/11/2019 12:00:00 AM EDT 1.0 {tablet} active Montelukast Sodium 10 MG eCW1 ([facility]) montelukast 10 MG Oral Tablet Montelukast Sodium 10 MG Farhad lukast Sodium 10 MG 07/11/2019 12:00:00 AM EDT 1.0 {tablet} active Montelukast Sodium 10 MG eCW1 ([facility]) Loratadine 10 MG Oral Tablet Loratadine 10 MG 07/11/2019 12:00:00 A M EDT 1.0 {tablet} active Loratadine 10 MG eCW1 ( [facility]) Loratadine 10 MG Oral Tablet Loratadine 10 MG 07/11/2019 12:00:00 A M EDT 1.0 {tablet} active Loratadine 10 MG eCW1 ( [facility]) POLYETHYLENE GLYCOL 3350 142 MG/ML Oral Solution [Miralax] M iralax 06/04/2019 12:00:00 AM EDT active M EDENT ([facility] ) POLYETHYLENE GLYCOL 3350 105 MG/ML / Pot assium Chloride 0.65860 MEQ/ML / Sodium Bicarbonate 0.017 MEQ/ML / Sodium Chloride 0.0479 MEQ/ML Oral Solution [TriLyte] Trilyte 06/04/2019 12:00:00 AM EDT active MEDENT ([facility], ) Magnesium Hydroxide 80 MG/ML Oral Suspension Milk Of Magnesi a 06/04/2019 12:00:00 AM EDT ORAL active M EDENT ([facility], ) Insurance Providers Payer name Policy type / Coverage type Policy ID Covered alliance party ID Covered alliance party's relationship to pal Policy Pal Plan Information MEDICARE COMPLETE [id number] SP [id number] [place] [id number] SP [id number] [facility] [id number] SP [id number] [facility] Commercial Insurance Co. [id number] Self [id number] [facility] [id number] SP [id number] SELF PAY ONLY [id number] SP [id number] MEDICAID [id number] Mel [id number] [facility] MEDICARE [id number] Mel [id number] [facility] O [id number] S [id number] MEDICAID M [id number] MEDICAID [id number] SP [id number] [facility] MEDICAID [id number] Mel [id number] ANSI-Medicare Part B [id number] [facility]-Medicaid [id number] ANSI-Not a Secondary Insurance [id number] ANSI-Not a Secondary Insurance [id number] ANSI-Medicare Part B [id number] ANSI-Medicaid [id number] ANSI-Medicaid [id number] ANSI-Not a Secondary Insurance [id number] ANSI-Medicare Part B [id number] ANSI-Medicaid [id number] ANSI-Not a Secondary Insurance [id number] ANSI-Medicare Part B [id number] ANSI-Medicare Part B [id number] ANSI-Not a Secondary Insurance [id number] ANSI-Medicaid [id number] ANSI-Medicaid [id number] ANSI-Medicare Part B [id number] ANSI-Not a Secondary Insurance [id number] ANSI-Not a Secondary Insurance [id number] ANSI-Medicaid [id number] ANSI-Medicare Part B [id number] ANSI-Medicaid [id number] ANSI-Medicare Part B [id number] MEDICARE [id number] SP [id number] [place] [id number] Self [id number] [place]ig[place] [id number] Self [id number] Medicare [place] Medicare Primary [id number] Self [id number] ANSI-Medicaid [id number] ANSI-Medicare Part B [id number] ANSI-Medicare Part B [id number] ANSI-Medicaid [id number] ANSI-Medicaid [id number] ANSI-Medicare Part B [id number] ANSI-Medicaid [id number] ANSI-Medicare Part B [id number] ANSI-Medicaid [id number] ANSI-Medicare Part B [id number] ANSI-Medicaid [id number] ANSI-Medicare Part B [id number] ANSI-Medicare Part B [id number] ANSI-Medicaid [id number] ANSI-Medicaid [id number] ANSMedicare Part B [id number] ANSI-Medicaid [id number] ANSI-Medicare Part B [id number] MEDICARE [id number] SP [id number] A MEDICARE C [id number] S [id number] A MEDICAID [id number] SP [id number] MEDICARE [id number] SP [id number] MEDICAID [id number] SP [id number] MEDICARE [id number] SP [id number] MEDICAID [id number] SP [id number] MEDICARE [id number] SP [id number] A BLUE [employer] PLAN [id number] SP [id number] HMO BLUE [id number] SP [id number] Problems, Conditions, and Diagnoses Code Display Name Description Problem Type Effective Dates Data Source(s) B37.0 18771001 Oral candidiasis Problem 01/13/2020 12:00:00 AM EST eCW1 ([facility]) G47.33 Obstructive sleep apnea (adult) (pediatr ic) Obstructive sleep apnea (adult) (pediatr Diagnosis 11/26/2019 10:19:46 AM EDT [facility] I48.0 Paroxysmal atrial fibrillation Paroxysmal atrial fibri llation Diagnosis 11/26/2019 10:19:46 AM EDT [facility] E78.00 Pure hypercholesterolemia, unspecified P ure hypercholesterolemia, unspecified Diagnosis 11/26/2019 10:19:46 AM EDT [facility] E11.9 Type 2 diabetes mellitus without complic ations Type 2 diabetes mellitus without complic Diagnosis 11/26/2019 10:19:46 AM EDT [facility] I10 Essential (primary) hypertension Essential (primary) h ypertension Diagnosis 11/26/2019 10:19:46 AM EDT [facility] Surgeries/Procedures Procedure Description Date Indications Data Source(s) COLONOSCOPY W/BIOPSY SINGLE/MULTIPLE 07/10/2019 12:00: 00 AM EDT eCW1 ([facility]) SHAVE F,E,E,N,L,M 0.6-1 CM 04/03/2019 12:00:00 AM EST eCW1 ([facility]) Office Visit, Est Pt., Level 4 PC 02/21/2019 12:00:00 AM EST eCW1 ([facility]) Office Visit, Est Pt., Level 3 FC 02/21/2019 12:00:00 AM EST eCW1 ([facility]) Results ID Date Data Source [id number] 02/07/2020 11:36:00 AM EST [facility] Name Value Range Interpretation Code Description Data Margi rce(s) Supporting Document(s) SARS coronavirus 2 RNA [Presence] in Res piratory specimen by APRIL with probe detection [facility] This lab was ordered by [facility] a nd reported by [facility]. ID Date Data Source [id number] 11/26/2019 11:28:48 AM [facility] Name Date of Age Gend*PT [id number] Sabiha Reynoso 1950 69 years M ---PT Location Admission Date/Time Visit ID Attending Provider --- --- --- --- EPI ID CSN Admitting Provider [id number] ---Addended by: JERI IRENE on: 11/26/2019 11:28 AM Modules accepted: Orders Name Value Range Interpretation Code Description Data Margi rce(s) Supporting Document(s) Procedure Social History Code Duration Value Status Description Data Source(s ) Smoking 03/18/2020 12:00:00 AM EST - 02/05/2007 12:00:00 AM EST Patient is a former smoker completed Patient is a former smoker FAY ([facility], ) Smoking 02/27/2020 12:00:00 AM EST Former Smoker completed Former Smoker eCW1 ([facility]) Smoking 02/27/2020 12:00:00 AM EST Former Smoker completed Former Smoker eCW1 ([facility]) Smoking 02/27/2020 12:00:00 AM EST Former Smoker completed Former Smoker eCW1 ([facility]) Smoking 01/13/2020 12:00:00 AM EST Former Smoker completed Former Smoker eCW1 ([facility]) Smoking 01/13/2020 12:00:00 AM EST Former Smoker completed Former Smoker eCW1 ([facility]) Smoking 01/13/2020 12:00:00 AM EST Former Smoker completed Former Smoker eCW1 ([facility]) Smoking 07/10/2019 12:00:00 AM EDT Former Smoker completed Former Smoker eCW1 ([facility]) Smoking 07/10/2019 12:00:00 AM EDT Former Smoker completed Former Smoker eCW1 ([facility]) Smoking 07/10/2019 12:00:00 AM EDT Former Smoker completed Former Smoker eCW1 ([facility]) Smoking 07/10/2019 12:00:00 AM EDT Former Smoker completed Former Smoker eCW1 ([facility]) Smoking 07/10/2019 12:00:00 AM EDT Former Smoker completed Former Smoker eCW1 ([facility]) Smoking 07/10/2019 12:00:00 AM EDT Former Smoker completed Former Smoker eCW1 ([facility]) Smoking 07/10/2019 12:00:00 AM EDT Former Smoker completed Former Smoker eCW1 ([facility]) Vital Signs ID Date Data Source UNK Name Value Range Interpretation Code Description Data Source(s) Body surface area Derived from formula 1.75 m2 1.75 m2 [facility] ([facility]) Body weight 64.411 kg 64.411 kg [facility] ([facility]) [place] body weight 148 [lb_av] 148 [lb_av] [facility] Body mass index (BMI) [Ratio] 22.2 kg/m2 22.2 k g/m2 [facility] ([facility]) Body weight 142.00 [lb_av] 142.00 [lb_av] [facility] Body height 67 [in_i] 67 [in_i] [facility] ([facility]) 5'7" Body temperature 98.1 [degF] 98.1 [degF] [facility] ([facility]) Oxygen saturation in Arterial blood by Pulse oximetry 99 % 99 % [facility] ([facility]) Room Air Heart rate 69 /min 69 /min [facility] ([facility]) Diastolic blood pressure 70 mm[Hg] 70 mm[Hg] [facility] ([facility]) Systolic blood pressure 120 mm[Hg] 120 mm[facility]Hg] [facility] Diastolic blood pressure 70 mm[Hg] 70 mm[Hg] eCW1 ([facility]) Systolic blood pressure 120 mm[Hg] 120 mm[Hg] e CW1 ([facility]) Body temperature 98 [degF] 98 [degF] eCW1 ([facility]) Respiratory rate 20 /min 20 /min eCW1 ([facility]) Heart rate 20 /min 20 /min eCW1 ([facility] Body mass index (BMI) [Ratio] 21.44 kg/m2 21.44 kg/m2 eCW1 ([facility]) Body height 68 [in_i] 68 [in_i] eCW1 ([facility]) Body weight 141 [lb_av] 141 [lb_av] eCW1 ([facility]) Diastolic blood pressure 62 mm[Hg] 62 mm[Hg] eCW1 ([facility]) Systolic blood pressure 110 mm[Hg] 110 mm[Hg] e CW1 ([facility]) Body temperature 98.1 [degF] 98.1 [degF] eCW1 ( [facility]) Respiratory rate 20 /min 20 /min eCW1 ([facility]) Heart rate 77 /min 77 /min eCW1 [facility] Body mass index (BMI) [Ratio] 22.74 kg/m2 22.74 kg/m2 eCW1 ([facility]) Body height 68 [in_i] 68 [in_i] eCW1 ([facility]) Body weight 149.6 [lb_av] 149.6 [lb_av] eCW1 ([facility]) Diastolic blood pressure 62 mm[Hg] 62 mm[Hg] eCW1 ([facility]) Systolic blood pressure 120 mm[Hg] 120 mm[Hg] e CW1 ([facility]) Body temperature 99.2 [degF] 99.2 [degF] eCW1 ( [facility]) Respiratory rate 20 /min 20 /min eCW1 ([facility]) Heart rate 81 /min 81 /min eCW1 ([facility]) Body mass index (BMI) [Ratio] 23.78 kg/m2 23.78 kg/m2 eCW1 ([facility]) Body height 68 [in_i] 68 [in_i] eCW1 ([facility]) Body weight 156.4 [lb_av] 156.4 [lb_av] eCW1 ([facility]) Body surface area Derived from formula 1.80 m2 1.80 m2 MEDENT ([facility]) Body weight 69.401 kg 69.401 kg [facility] ([facility]) [place] body weight 148 [lb_av] 148 [lb_av] [facility] Body mass index (BMI) [Ratio] 24.0 kg/m2 24.0 k g/m2 [facility] ([facility]) Body weight 153.00 [lb_av] 153.00 [lb_av] MED[facility] T ([facility]) Body height 67 [in_i] 67 [in_i] [facility] ([facility]) 5'7" Diastolic blood pressure 64 mm[Hg] 64 mm[Hg] [facility] ([facility]) Systolic blood pressure 110 mm[Hg] 110 mm[Hg] [facility] Diastolic blood pressure 78 mm[Hg] 78 mm[Hg] eCW1 ([facility]) Systolic blood pressure 120 mm[Hg] 120 mm[Hg] e CW1 ([facility]) Body temperature 98.7 [degF] 98.7 [degF] eCW1 ( [facility]) Respiratory rate 20 /min 20 /min eCW1 ([facility]) Heart rate 72 /min 72 /min eCW1 ([facility]) Body mass index (BMI) [Ratio] 23.63 kg/m2 23.63 kg/m2 W1 ([facility]) Body height 68 [in_us] 68 [in_us] eCW1 ([facility]) Body weight Measured 155.4 [lb_av] 155.4 [lb_av ] eCW1 ([facility]) Diastolic blood pressure 72 mm[Hg] 72 mm[Hg] eCW1 ([facility]) Systolic blood pressure 128 mm[Hg] 128 mm[Hg] e CW1 ([facility]) Body temperature 98.1 [degF] 98.1 [degF] eCW1 ( [facility]) Respiratory rate 20 /min 20 /min eCW1 ([facility]) Heart rate 74 /min 74 /min eCW1 ([facility]) Body mass index (BMI) [Ratio] 22.87 kg/m2 22.87 kg/m2 eCW1 ([facility]) Body height 68 [in_us] 68 [in_us] eCW1 ([facility]) Body weight Measured 150.4 [lb_av] 150.4 [lb_av ] eCW1 ([facility]) Diastolic blood pressure 72 mm[Hg] 72 mm[Hg] eCW1 ([facility]) Systolic blood pressure 128 mm[Hg] 128 mm[Hg] e CW1 ([facility]) Body temperature 98.1 [degF] 98.1 [degF] eCW1 ( [facility]) Respiratory rate 20 /min 20 /min eCW1 ([facility]) Heart rate 74 /min 74 /min eCW1 ([facility]) Body mass index (BMI) [Ratio] 22.87 kg/m2 22.87 kg/m2 eCW1 ([facility]) Body height 68 [in_us] 68 [in_us] eCW1 ([facility]) Body weight Measured 150.4 [lb_av] 150.4 [lb_av ] eCW1 ([facility]) Patient Treatment Plan of Care Planned Activity Planned Date Details Description Data Source (s) cetirizine hydrochloride 10 MG Oral Tablet 01/13/2020 12:00:[address] eCW1 ([facility]) Clotrimazole 10 MG Oral Lozenge 01/13/2020 12:00:00 AM EST eCW1 ([facility]) cetirizine hydrochloride 10 MG Oral Tablet 01/13/2020 12:00:[address] eCW1 ([facility]) Clotrimazole 10 MG Oral Lozenge 01/13/2020 12:00:00 AM EST eCW1 ([facility]) cetirizine hydrochloride 10 MG Oral Tablet 01/13/2020 12:00:[address] eCW1 ([facility]) Clotrimazole 10 MG Oral Lozenge 01/13/2020 12:00:00 AM EST eCW1 ([facility]) Loratadine 10 MG Oral Tablet 07/11/2019 12:00:00 AM EDT eCW1 ([facility]) Loratadine 10 MG Oral Tablet 07/11/2019 12:00:00 AM EDT eCW1 ([facility]) Loratadine 10 MG Oral Tablet 07/11/2019 12:00:00 AM EDT eCW1 ([facility]) Loratadine 10 MG Oral Tablet 07/11/2019 12:00:00 AM EDT eCW1 ([facility]) montelukast 10 MG Oral Tablet 07/11/2019 12:00:00 AM EDT eCW1 ([facility]) Loratadine 10 MG Oral Tablet 07/11/2019 12:00:00 AM EDT eCW1 ([facility]) montelukast 10 MG Oral Tablet 07/11/2019 12:00:00 AM EDT eCW1 ([facility]) Loratadine 10 MG Oral Tablet 07/11/2019 12:00:00 AM EDT eCW1 ([facility]) Loratadine 10 MG Oral Tablet 07/11/2019 12:00:00 AM EDT eCW1 ([facility]) montelukast 10 MG Oral Tablet 07/11/2019 12:00:00 AM EDT eCW1 ([facility])
--- NOTE | 2020-03-24 14:03 | REP ---
INDICATION: DYSPNEA/COUGH. COMPARISON: Comparison chest x-ray 01 March 2020. TECHNIQUE: Two views.. FINDINGS: The previously noted left-sided infiltrate is improved. There are still some interstitial markings that are increased along the distribution of the peripheral infiltrate on the left. No new infiltrate is seen. Patchy increased markings were observed in the right chest on prior chest x-ray. These are improved as well. Pleural angles are sharp. Heart is not enlarged. Aorta is somewhat tortuous. IMPRESSION: Recently noted bilateral infiltrates are improved, not quite resolved. No new infiltrate is seen. Otherwise no active disease.. <Electronically signed by Jese Morocho > 03/24/20 [id number]
[2020-03-24 14:08] LABS: BASO % 0.6 % (0.0-1.0); EOS # 0.3 10^3/uL (0.0-0.5); EOS % 4.1 % (0.0-3.0); HEMATOCRIT 40.9 % (42.0-52.0); HEMOGLOBIN 12.6 g/dl (13.5-17.5); LYMPH % 28.9 % (24.0-44.0); MEAN CORPUSCULAR HEMOGLOBIN 26.9 pg (27.0-33.0); MEAN CORPUSCULAR HGB CONC 30.8 g/dl (32.0-36.5); MEAN CORPUSCULAR VOLUME 87.4 fl (80.0-96.0); MONO # 0.9 10^3/uL (0.0-0.8); MONO % 12.7 % (2.0-8.0); NEUTROPHILS # 3.8 10^3/uL (1.5-8.5); NEUTROPHILS % 53.3 % (36.0-66.0); PLATELET COUNT, AUTOMATED 236 10^3/uL (150-450); RED BLOOD COUNT 4.68 10^6/uL (4.30-6.10); WHITE BLOOD COUNT 7.1 10^3/uL (4.0-10.0)
[2020-03-24 14:18] VITALS: O2SAT 98
[2020-03-24 14:19] LABS: INR 1.11; PROTHROMBIN TIME 14.5 SECONDS (12.5-14.3)
[2020-03-24 14:25] LABS: D-DIMER QUANT < 270 ng/ml (<500)
[2020-03-24 14:35] LABS: ALT/SGPT 44 U/L (12-78); BILIRUBIN,DIRECT 0.1 MG/DL (0.0-0.2); BILIRUBIN,TOTAL 0.5 MG/DL (0.2-1.0); BLOOD UREA NITROGEN 15 MG/DL (7-18); CALCIUM LEVEL 9.4 MG/DL (8.8-10.2); CARBON DIOXIDE LEVEL 28 MEQ/L (21-32); CHLORIDE LEVEL 107 MEQ/L (98-107); CK-MB VALUE MASS < 1.0 NG/ML (<3.6); CPK CREATINE PHOSPHOKINASE 81 U/L (39-308); CREATININE FOR GFR 0.92 MG/DL (0.70-1.30); GLOMERULAR FILTRATION RATE > 60.0 (>42); GLUCOSE, FASTING 102 MG/DL (70-100); MB/CK RELATIVE INDEX 1.23 (< OR =4); NT-PRO BNP 81 PG/ML (<125); POTASSIUM SERUM 4.1 MEQ/L (3.5-5.1); SODIUM LEVEL 141 MEQ/L (136-145); TOTAL PROTEIN 6.9 GM/DL (6.4-8.2); TROPONIN I < 0.02 NG/ML (< 0.10)
[2020-03-24] MEDS ORDERED: ISOVUE-370 76% 100ML VIAL As Ordered ONE (15:04)
[2020-03-24 15:26] VITALS: BP 159/74
--- NOTE | 2020-03-24 15:30 | REP ---
INDICATION: s/p covid inc sob. COMPARISON: Comparison made with today's chest x-ray March 24, 2020.. TECHNIQUE: Contrast dose: 75 ML of Isovue [address] technique: Helical scanning is acquired and overlapping 1.5 mm and contiguous 3 mm axial images are reformatted. In addition, maximum intensity projection and multiplanar re-formation images are generated in sagittal and coronal imaging projections. FINDINGS: There is good opacification in the pulmonary arterial tree. There is no evidence of vessel cut off or filling defect to suggest pulmonary embolus. Homogeneous opacity is seen in the thoracic aorta. There is no evidence of aneurysm or dissection. Lung window settings demonstrate a peripheral pattern of subpleural linear and interstitial opacity consistent with resolving inflammatory change or subpleural fibrosis. Emphysematous changes are noted in the upper lobes bilaterally. No pleural or pericardial effusion is seen. No focal infiltrate is appreciated. No endobronchial disease is seen. No hilar or mediastinal mass or adenopathy is seen. There is fairly extensive left coronary artery vascular calcification. In the upper abdomen, normal adrenal glands are seen. Visualized upper abdominal structures are unremarkable. IMPRESSION: Peripheral pattern of subpleural linear and interstitial opacity consistent with resolving inflammatory change or, subpleural fibrosis. There are fairly extensive emphysematous changes especially in the upper lobes. No CT evidence of pulmonary embolus.. <Electronically signed by Jese Morocho > 03/24/20 [id number]
--- NOTE | 2020-03-25 14:07 | ED PDOC ---
Post-Departure Follow-Up radiology report faxed to Indy Herron MD Mar 25, 2020 14:07
--- NOTE | 2020-03-26 08:07 | ECGEPIP ---
[facility] - ED Test Date: 2020-03-24 Pat Name: SABIHA MARSHALL Department: Room: - Gender: Male Senior Administrator Support: : 1950 Requested By: PEG WAN PA-C Order Number: [id number] Reading MD: Indy Gomez Measurements Intervals [place] Rate: 60 P: 54 HI: 182 QRS: -20 QRSD: 106 T: 28 QT: 450 QTc: 450 Interpretive Statements Normal sinus rhythm NSTTW abnormalities decreased rate 02/15/20 Electronically Signed on 03-26-2020 8:07:48 EST by Indy Gomez
== END 2020-03-24 15:59 | disposition home or self-care (01) ==
LOC: M ED 12:54
DX: J12.81 Pneumonia due to SARS-associated coronavirus (principal); U07.1 COVID-19; J44.9 Chronic obstructive pulmonary disease, unspecified; E11.9 Type 2 diabetes mellitus without complications; I10 Essential (primary) hypertension; G47.33 Obstructive sleep apnea (adult) (pediatric); N18.2 Chronic kidney disease, stage 2 (mild); Z79.01 Long term (current) use of anticoagulants; Z79.899 Other long term (current) drug therapy; Z88.2 Allergy status to sulfonamides; Z88.6 Allergy status to analgesic agent; Z88.8 Allergy status to other drugs, medicaments and biological substances
CPT/HCPCS: 36415; 71046; 71275; 80047; 80048; 80076; 82550; 82553; 83880; 84484; 85025; 85379; 85610; 93005; 99284; Q9967

== ENCOUNTER → 2020-03-26 | Outpatient (CLI) | payer SELFPAY | LOC: M LABSMTC 11:16 | PROVIDERS: ATTEND Pediatrics | DX: Z20.822 Contact with and (suspected) exposure to COVID-19 (principal) ==

== ENCOUNTER → 2020-04-27 | Outpatient (CLI) | payer SELFPAY, MEDICAID, MEDICARE | LOC: M LABSMTC 13:18 | PROVIDERS: ATTEND Pediatrics | DX: Z11.52 Encounter for screening for COVID-19 (principal) ==

== ENCOUNTER → 2020-05-10 | Outpatient (CLI) | payer MEDICARE, MEDICAID ==
[2020-05-10 13:47] LABS: BASO # 0.1 10^3/uL (0.0-0.2); BASO % 0.7 % (0.0-1.0); EOS # 0.4 10^3/uL (0.0-0.5); HEMATOCRIT 43.8 % (42.0-52.0); HEMOGLOBIN 13.6 g/dl (13.5-17.5); LYMPH # 2.1 10^3/uL (1.5-5.0); LYMPH % 31.1 % (24.0-44.0); MEAN CORPUSCULAR HEMOGLOBIN 27.4 pg (27.0-33.0); MEAN CORPUSCULAR HGB CONC 31.1 g/dl (32.0-36.5); MEAN CORPUSCULAR VOLUME 88.1 fl (80.0-96.0); MONO # 0.9 10^3/uL (0.0-0.8); MONO % 12.8 % (2.0-8.0); NEUTROPHILS # 3.4 10^3/uL (1.5-8.5); NEUTROPHILS % 49.1 % (36.0-66.0); PLATELET COUNT, AUTOMATED 252 10^3/uL (150-450); RED BLOOD COUNT 4.97 10^6/uL (4.30-6.10); WHITE BLOOD COUNT 6.8 10^3/uL (4.0-10.0)
[2020-05-10 14:01] LABS: HEMOGLOBIN A1c 5.4 %
[2020-05-10 14:16] LABS: ALBUMIN 3.9 GM/DL (3.2-5.2); ALT/SGPT 37 U/L (12-78); BILIRUBIN,TOTAL 0.5 MG/DL (0.2-1.0); BLOOD UREA NITROGEN 15 MG/DL (7-18); CALCIUM LEVEL 9.1 MG/DL (8.8-10.2); CARBON DIOXIDE LEVEL 30 MEQ/L (21-32); CHLORIDE LEVEL 105 MEQ/L (98-107); CREATININE FOR GFR 0.93 MG/DL (0.70-1.30); FERRITIN 429 NG/ML (26-388); GLOMERULAR FILTRATION RATE > 60.0 (>42); GLUCOSE, FASTING 88 MG/DL (70-100); NT-PRO BNP 33 PG/ML (<125); POTASSIUM SERUM 4.1 MEQ/L (3.5-5.1); SODIUM LEVEL 141 MEQ/L (136-145); TOTAL PROTEIN 6.5 GM/DL (6.4-8.2)
[2020-05-10 14:22] LABS: TOTAL 25(OH) VITAMIN D 42.6 NG/ML (30.0-100.0)
[2020-05-10 14:23] LABS: PTH INTACT 30.4 PG/ML (18.5-88.0)
== END ==
LOC: M WUC 11:06
PROVIDERS: ATTEND Family Medicine
DX: R73.01 Impaired fasting glucose (principal); N18.2 Chronic kidney disease, stage 2 (mild); D50.9 Iron deficiency anemia, unspecified; I48.91 Unspecified atrial fibrillation; Z79.899 Other long term (current) drug therapy

== ENCOUNTER 2020-06-30 18:25 | Emergency (ER) | payer MEDICARE, MEDICAID ==
[~2020-06-30] VITALS: Ht 172.7 cm; Wt 70.0 kg
--- NOTE | 2020-06-30 19:25 | REP ---
INDICATION: injury, pain, decreased ROM. COMPARISON: None. TECHNIQUE: Three views of the right shoulder are provided. FINDINGS: Three views of the right shoulder demonstrate periarticular soft tissue calcifications consistent with calcific tendinitis or bursitis along the superior aspect of the humeral head. There is glenohumeral osteoarthritic spurring. Minimal hypertrophy at the AC joint is seen. No erosive changes seen. No fracture or subluxation is noted. IMPRESSION: Osteoarthritis of the glenohumeral articulation. Extensive soft tissue calcification in the adjacent soft tissues consistent with calcific tendinitis or bursitis changes. <Electronically signed by Jese Morocho > 06/30/201921
[2020-06-30 20:47] VITALS: BP 152/86
== END 2020-06-30 20:49 | disposition home or self-care (01) ==
LOC: M ED 18:25
DX: S43.401A Unspecified sprain of right shoulder joint, initial encounter (principal); S46.911A Strain of unspecified muscle, fascia and tendon at shoulder and upper arm level, right arm, initial encounter; M19.011 Primary osteoarthritis, right shoulder; M75.31 Calcific tendinitis of right shoulder; X50.0XXA Overexertion from strenuous movement or load, initial encounter; Y92.89 Other specified places as the place of occurrence of the external cause; I12.9 Hypertensive chronic kidney disease with stage 1 through stage 4 chronic kidney disease, or unspecified chronic kidney disease; I48.91 Unspecified atrial fibrillation; E11.9 Type 2 diabetes mellitus without complications; N18.9 Chronic kidney disease, unspecified; E78.5 Hyperlipidemia, unspecified; J44.9 Chronic obstructive pulmonary disease, unspecified; K21.9 Gastro-esophageal reflux disease without esophagitis; Z87.891 Personal history of nicotine dependence; Z88.8 Allergy status to other drugs, medicaments and biological substances; Z88.2 Allergy status to sulfonamides; Z88.5 Allergy status to narcotic agent; Z91.011 Allergy to milk products; Z79.899 Other long term (current) drug therapy; Z79.01 Long term (current) use of anticoagulants; Z79.51 Long term (current) use of inhaled steroids

== ENCOUNTER → 2020-10-04 | Outpatient (CLI) | payer MEDICARE, MEDICAID ==
[~2020-10-04] MED LIST changes: -DOXY100C37 PO; +DOXY1CAP62 PO; +FLEC100T27 PO; -FLEC10TA PO
[2020-10-04 11:22] LABS: BASO % 0.7 % (0.0-1.0); EOS # 0.4 10^3/uL (0.0-0.5); EOS % 7.6 % (0.0-3.0); HEMATOCRIT 39.4 % (42.0-52.0); HEMOGLOBIN 12.4 g/dl (13.5-17.5); LYMPH # 1.9 10^3/uL (1.5-5.0); LYMPH % 35.7 % (24.0-44.0); MEAN CORPUSCULAR HEMOGLOBIN 27.4 pg (27.0-33.0); MEAN CORPUSCULAR HGB CONC 31.5 g/dl (32.0-36.5); MONO # 0.7 10^3/uL (0.0-0.8); MONO % 12.5 % (2.0-8.0); NEUTROPHILS # 2.4 10^3/uL (1.5-8.5); NEUTROPHILS % 43.3 % (36.0-66.0); PLATELET COUNT, AUTOMATED 224 10^3/uL (150-450); RED BLOOD COUNT 4.53 10^6/uL (4.30-6.10); WHITE BLOOD COUNT 5.4 10^3/uL (4.0-10.0)
[2020-10-04 12:21] LABS: ALBUMIN 3.3 GM/DL (3.2-5.2); ALT/SGPT 40 U/L (12-78); BILIRUBIN,TOTAL 0.5 MG/DL (0.2-1.0); BLOOD UREA NITROGEN 12 MG/DL (7-18); CALCIUM LEVEL 8.3 MG/DL (8.8-10.2); CARBON DIOXIDE LEVEL 31 MEQ/L (21-32); CHLORIDE LEVEL 109 MEQ/L (98-107); CHOLESTEROL LEVEL 131 MG/DL (<200); CHOLESTEROL RISK RATIO 2.258 (<5); CREATININE FOR GFR 0.95 MG/DL (0.70-1.30); FERRITIN 389 NG/ML (26-388); GLOMERULAR FILTRATION RATE > 60.0 (>42); GLUCOSE, FASTING 92 MG/DL (70-100); HDL CHOLESTEROL 58 MG/DL (>40); LDL CHOLESTEROL 61 MG/DL (<100); NON-HDL-C 73 MG/DL; NT-PRO BNP 216 PG/ML (<125); POTASSIUM SERUM 3.7 MEQ/L (3.5-5.1); SODIUM LEVEL 143 MEQ/L (136-145); TOTAL PROTEIN 5.8 GM/DL (6.4-8.2); TRIGLYCERIDES LEVEL 59 MG/DL (<150); VITAMIN B12 LEVEL 613 PG/ML (247-911)
== END ==
LOC: M WUC 09:19
PROVIDERS: ATTEND Family Medicine
DX: E53.8 Deficiency of other specified B group vitamins (principal); I10 Essential (primary) hypertension; R73.01 Impaired fasting glucose; I87.2 Venous insufficiency (chronic) (peripheral)

== ENCOUNTER → 2020-10-12 | Outpatient (CLI) | payer MEDICARE, MEDICAID ==
--- NOTE | 2020-10-12 12:21 | REP ---
INDICATION: COVID-19. COMPARISON: Comparison chest x-ray March 24, 2020. TECHNIQUE: Two views.. FINDINGS: The lungs are well inflated and free of infiltrate. The pleural angles are sharp. The heart size is normal. Pulmonary vasculature is not increased. No significant bony abnormality is seen. IMPRESSION: No acute disease seen. <Electronically signed by Jese Morocho > 10/12/20 [id number]
[2020-10-12 17:12] LABS: C REACTIVE PROTEIN QUANTITATIV < 0.30 MG/DL (0.00-0.30); CPK CREATINE PHOSPHOKINASE 125 U/L (39-308); FREE T4 0.74 NG/DL (0.76-1.46); IRON (FE) 69 UG/DL (65-175); NT-PRO BNP 113 PG/ML (<125); TOTAL IRON BINDING CAPACITY 265 UG/DL (250-450)
[2020-10-12 17:17] LABS: ERYTHROCYTE SEDIMENTATION RATE 7 mm/hr (0-20)
== END ==
LOC: M WUC 10:42
PROVIDERS: ATTEND Family Medicine
DX: U07.1 COVID-19 (principal)

== ENCOUNTER → 2021-02-07 | Outpatient (CLI) | payer MEDICARE, MEDICAID ==
[~2021-02-07] MED LIST changes: +DOXY-443 PO; -DOXY1CAP62 PO
[2021-02-07 17:03] LABS: ALBUMIN 3.8 GM/DL (3.2-5.2); ALT/SGPT 34 U/L (12-78); BILIRUBIN,TOTAL 0.5 MG/DL (0.2-1.0); BLOOD UREA NITROGEN 17 MG/DL (7-18); CARBON DIOXIDE LEVEL 30 MEQ/L (21-32); CHLORIDE LEVEL 108 MEQ/L (98-107); CREATININE FOR GFR 1.03 MG/DL (0.70-1.30); GLOMERULAR FILTRATION RATE > 60.0 (>42); GLUCOSE, FASTING 93 MG/DL (70-100); IRON (FE) 76 UG/DL (65-175); MAGNESIUM LEVEL 2.2 MG/DL (1.8-2.4); NT-PRO BNP 135 PG/ML (<125); PERCENT SATURATION 27.2 % (19.7-50.0); POTASSIUM SERUM 3.8 MEQ/L (3.5-5.1); SODIUM LEVEL 141 MEQ/L (136-145); TOTAL IRON BINDING CAPACITY 279 UG/DL (250-450); TOTAL PROTEIN 6.5 GM/DL (6.4-8.2)
[2021-02-07 17:05] LABS: BASO % 0.4 % (0.0-1.0); EOS # 0.5 10^3/uL (0.0-0.5); EOS % 6.5 % (0.0-3.0); HEMATOCRIT 42.8 % (42.0-52.0); HEMOGLOBIN 13.3 g/dl (13.5-17.5); LYMPH # 2.3 10^3/uL (1.5-5.0); LYMPH % 31.7 % (24.0-44.0); MEAN CORPUSCULAR HEMOGLOBIN 27.4 pg (27.0-33.0); MEAN CORPUSCULAR HGB CONC 31.1 g/dl (32.0-36.5); MEAN CORPUSCULAR VOLUME 88.1 fl (80.0-96.0); MONO # 0.8 10^3/uL (0.0-0.8); MONO % 10.9 % (2.0-8.0); NEUTROPHILS # 3.6 10^3/uL (1.5-8.5); NEUTROPHILS % 50.2 % (36.0-66.0); PLATELET COUNT, AUTOMATED 227 10^3/uL (150-450); RED BLOOD COUNT 4.86 10^6/uL (4.30-6.10); WHITE BLOOD COUNT 7.3 10^3/uL (4.0-10.0)
[2021-02-07 18:00] LABS: TOTAL 25(OH) VITAMIN D 48.2 NG/ML (30.0-100.0)
[2021-02-07 18:01] LABS: PTH INTACT 36.9 PG/ML (18.5-88.0)
== END ==
LOC: M WUC 09:42
PROVIDERS: ATTEND Family Medicine
DX: Z12.5 Encounter for screening for malignant neoplasm of prostate (principal); I10 Essential (primary) hypertension; D50.9 Iron deficiency anemia, unspecified; E55.9 Vitamin D deficiency, unspecified; Z79.899 Other long term (current) drug therapy
CPT/HCPCS: 36415; 80053; 82306; 83550; 83735; 83880; 83970; 85025; 85046; G0103

== ENCOUNTER → 2021-02-25 | Outpatient (CLI) | payer MEDICARE, MEDICAID ==
[~2021-02-25] MED LIST changes: -BENA40TA5 PO; +BENA40TA84 PO
== END ==
LOC: M WUC 11:07
PROVIDERS: ATTEND Family Medicine
DX: M19.049 Primary osteoarthritis, unspecified hand (principal); R93.89 Abnormal findings on diagnostic imaging of other specified body structures
CPT/HCPCS: 73130; G0463

== ENCOUNTER → 2021-03-18 | Outpatient (CLI) | payer MEDICARE, MEDICAID | LOC: M PLALAB 09:08 | PROVIDERS: ATTEND Family Medicine | DX: M19.049 Primary osteoarthritis, unspecified hand (principal) ==

== ENCOUNTER → 2021-04-28 | Outpatient (CLI) | payer MEDICARE, MEDICAID | LOC: M CARPUL 14:39 | PROVIDERS: ATTEND Family Medicine | DX: J44.9 Chronic obstructive pulmonary disease, unspecified (principal) ==

== ENCOUNTER → 2021-06-02 | Outpatient (CLI) | payer MEDICARE, MEDICAID ==
[2021-06-02 15:55] LABS: BASO % 0.6 % (0.0-1.0); EOS # 0.4 10^3/uL (0.0-0.5); HEMATOCRIT 43.6 % (42.0-52.0); HEMOGLOBIN 13.7 g/dl (13.5-17.5); LYMPH # 1.9 10^3/uL (1.5-5.0); LYMPH % 26.2 % (24.0-44.0); MEAN CORPUSCULAR HEMOGLOBIN 27.7 pg (27.0-33.0); MEAN CORPUSCULAR HGB CONC 31.4 g/dl (32.0-36.5); MEAN CORPUSCULAR VOLUME 88.3 fl (80.0-96.0); MONO # 0.8 10^3/uL (0.0-0.8); MONO % 11.3 % (2.0-8.0); NEUTROPHILS # 4.1 10^3/uL (1.5-8.5); NEUTROPHILS % 56.6 % (36.0-66.0); PLATELET COUNT, AUTOMATED 252 10^3/uL (150-450); RED BLOOD COUNT 4.94 10^6/uL (4.30-6.10); WHITE BLOOD COUNT 7.2 10^3/uL (4.0-10.0)
[2021-06-02 16:29] LABS: ALBUMIN 4.1 GM/DL (3.2-5.2); ALT/SGPT 38 U/L (12-78); BILIRUBIN,TOTAL 0.6 MG/DL (0.2-1.0); BLOOD UREA NITROGEN 15 MG/DL (7-18); CALCIUM LEVEL 9.6 MG/DL (8.8-10.2); CARBON DIOXIDE LEVEL 28 MEQ/L (21-32); CHLORIDE LEVEL 108 MEQ/L (98-107); CHOLESTEROL LEVEL 161 MG/DL (<200); FERRITIN 443 NG/ML (26-388); GLOMERULAR FILTRATION RATE > 60.0 (>42); GLUCOSE, FASTING 92 MG/DL (70-100); HDL CHOLESTEROL 77 MG/DL (>40); LDL CHOLESTEROL 70 MG/DL (<100); MAGNESIUM LEVEL 2.3 MG/DL (1.8-2.4); NON-HDL-C 84 MG/DL; NT-PRO BNP 68 PG/ML (<125); POTASSIUM SERUM 3.9 MEQ/L (3.5-5.1); RHEUMATOID FACTOR QUANT < 10.0 IU/ML (<15.0); SODIUM LEVEL 141 MEQ/L (136-145); TOTAL PROTEIN 6.8 GM/DL (6.4-8.2); TRIGLYCERIDES LEVEL 71 MG/DL (<150)
[2021-06-02 16:38] LABS: VITAMIN B12 LEVEL 947 PG/ML (247-911)
== END ==
LOC: M WUC 11:14
PROVIDERS: ATTEND Family Medicine
DX: M19.049 Primary osteoarthritis, unspecified hand (principal); D50.9 Iron deficiency anemia, unspecified; E78.00 Pure hypercholesterolemia, unspecified; Z12.5 Encounter for screening for malignant neoplasm of prostate
CPT/HCPCS: 36415; 80053; 80061; 81374; 82607; 82728; 83525; 83735; 83880; 85025; 86021; 86038; 86200; 86431; 86618; 86677; G0103

== ENCOUNTER 2021-10-24 10:42 | Emergency (ER) | payer MEDICARE, MEDICAID ==
[~2021-10-24] VITALS: Ht 170.2 cm; Wt 68.2 kg
[2021-10-24 11:50] LABS: BASO # 0.1 10^3/uL (0.0-0.2); BASO % 0.8 % (0.0-1.0); EOS # 0.2 10^3/uL (0.0-0.5); EOS % 3.7 % (0.0-3.0); HEMATOCRIT 44.4 % (42.0-52.0); HEMOGLOBIN 14.1 g/dl (13.5-17.5); LYMPH # 1.7 10^3/uL (1.5-5.0); LYMPH % 25.7 % (24.0-44.0); MEAN CORPUSCULAR HEMOGLOBIN 27.5 pg (27.0-33.0); MEAN CORPUSCULAR HGB CONC 31.8 g/dl (32.0-36.5); MEAN CORPUSCULAR VOLUME 86.7 fl (80.0-96.0); MONO # 0.6 10^3/uL (0.0-0.8); MONO % 8.7 % (2.0-8.0); NEUTROPHILS # 3.9 10^3/uL (1.5-8.5); NEUTROPHILS % 60.6 % (36.0-66.0); PLATELET COUNT, AUTOMATED 253 10^3/uL (150-450); RED BLOOD COUNT 5.12 10^6/uL (4.30-6.10); WHITE BLOOD COUNT 6.5 10^3/uL (4.0-10.0)
[2021-10-24 12:34] LABS: BLOOD UREA NITROGEN 10 MG/DL (7-18); CALCIUM LEVEL 9.3 MG/DL (8.8-10.2); CARBON DIOXIDE LEVEL 29 MEQ/L (21-32); CHLORIDE LEVEL 108 MEQ/L (98-107); CREATININE FOR GFR 0.95 MG/DL (0.70-1.30); GLOMERULAR FILTRATION RATE > 60.0 (>42); GLUCOSE, FASTING 99 MG/DL (70-100); POTASSIUM SERUM 3.9 MEQ/L (3.5-5.1); SODIUM LEVEL 138 MEQ/L (136-145)
[2021-10-24 13:30] VITALS: BP 131/69
[2021-10-24 13:33] LABS: ALBUMIN 4.1 GM/DL (3.2-5.2); ALT/SGPT 29 U/L (12-78); BILIRUBIN,DIRECT 0.2 MG/DL (0.0-0.2); BILIRUBIN,TOTAL 0.5 MG/DL (0.2-1.0); LIPASE 142 U/L (73-393)
[2021-10-24] MEDS ORDERED: ISOVUE-370 76% 100ML VIAL As Ordered ONE (14:01)
== END 2021-10-24 16:40 | disposition home or self-care (01) ==
LOC: M ED 10:42
DX: R91.8 Other nonspecific abnormal finding of lung field (principal); N20.0 Calculus of kidney; R07.89 Other chest pain; I48.91 Unspecified atrial fibrillation; J44.9 Chronic obstructive pulmonary disease, unspecified; E78.5 Hyperlipidemia, unspecified; K21.9 Gastro-esophageal reflux disease without esophagitis; N18.30 Chronic kidney disease, stage 3 unspecified; D50.9 Iron deficiency anemia, unspecified; Z87.891 Personal history of nicotine dependence; Z88.2 Allergy status to sulfonamides; Z88.8 Allergy status to other drugs, medicaments and biological substances; Z88.5 Allergy status to narcotic agent; Z91.011 Allergy to milk products
CPT/HCPCS: 36415; 71045; 71275; 80048; 80076; 83690; 84484; 85025; 93005; 99284; Q9967

== ENCOUNTER → 2021-10-31 | Outpatient (CLI) | payer MEDICARE, MEDICAID ==
[2021-10-31 12:19] LABS: BASO # 0.1 10^3/uL (0.0-0.2); BASO % 0.7 % (0.0-1.0); EOS # 0.6 10^3/uL (0.0-0.5); EOS % 8.1 % (0.0-3.0); HEMATOCRIT 45.2 % (42.0-52.0); HEMOGLOBIN 14.2 g/dl (13.5-17.5); LYMPH # 2.1 10^3/uL (1.5-5.0); LYMPH % 29.8 % (24.0-44.0); MEAN CORPUSCULAR HEMOGLOBIN 27.3 pg (27.0-33.0); MEAN CORPUSCULAR HGB CONC 31.4 g/dl (32.0-36.5); MEAN CORPUSCULAR VOLUME 86.8 fl (80.0-96.0); MONO # 0.7 10^3/uL (0.0-0.8); MONO % 10.4 % (2.0-8.0); NEUTROPHILS # 3.5 10^3/uL (1.5-8.5); NEUTROPHILS % 50.6 % (36.0-66.0); PLATELET COUNT, AUTOMATED 264 10^3/uL (150-450); RED BLOOD COUNT 5.21 10^6/uL (4.30-6.10); WHITE BLOOD COUNT 6.9 10^3/uL (4.0-10.0)
[2021-10-31 12:45] LABS: ERYTHROCYTE SEDIMENTATION RATE 3 mm/hr (0-20)
[2021-10-31 13:31] LABS: ALBUMIN 3.9 GM/DL (3.2-5.2); ALT/SGPT 29 U/L (12-78); BILIRUBIN,TOTAL 0.6 MG/DL (0.2-1.0); BLOOD UREA NITROGEN 15 MG/DL (7-18); CALCIUM LEVEL 9.3 MG/DL (8.8-10.2); CARBON DIOXIDE LEVEL 30 MEQ/L (21-32); CHLORIDE LEVEL 104 MEQ/L (98-107); COMPLEMENT C3 109 MG/DL (90-180); COMPLEMENT C4 33 MG/DL (10-40); CREATININE FOR GFR 1.03 MG/DL (0.70-1.30); GLOMERULAR FILTRATION RATE > 60.0 (>42); GLUCOSE, FASTING 97 MG/DL (70-100); MAGNESIUM LEVEL 2.5 MG/DL (1.8-2.4); NT-PRO BNP 111 PG/ML (<125); POTASSIUM SERUM 4.8 MEQ/L (3.5-5.1); SODIUM LEVEL 135 MEQ/L (136-145); TOTAL PROTEIN 6.8 GM/DL (6.4-8.2)
== END ==
LOC: M WUC 09:47
PROVIDERS: ATTEND Family Medicine
DX: M19.049 Primary osteoarthritis, unspecified hand (principal); D50.9 Iron deficiency anemia, unspecified; I10 Essential (primary) hypertension

== ENCOUNTER → 2021-11-28 | Outpatient (CLI) | payer MEDICARE, MEDICAID ==
[2021-11-28 11:03] LABS: ALBUMIN 3.9 GM/DL (3.2-5.2); BLOOD UREA NITROGEN 16 MG/DL (7-18); CARBON DIOXIDE LEVEL 28 MEQ/L (21-32); CHLORIDE LEVEL 106 MEQ/L (98-107); CREATININE FOR GFR 1.01 MG/DL (0.70-1.30); GLOMERULAR FILTRATION RATE > 60.0 (>42); GLUCOSE, FASTING 101 MG/DL (70-100); PHOSPHORUS LEVEL 3.2 MG/DL (2.5-4.9); POTASSIUM SERUM 4.1 MEQ/L (3.5-5.1); SODIUM LEVEL 137 MEQ/L (136-145)
== END ==
LOC: M WUC 08:02
PROVIDERS: ATTEND Family Medicine
DX: I10 Essential (primary) hypertension (principal)

== ENCOUNTER → 2021-11-30 | Outpatient (CLI) | payer MEDICARE, MEDICAID ==
[~2021-11-30] MED LIST changes: +PROHANCE 279.3MG/ML 15ML VIAL ONE
== END ==
LOC: M PLAIMG 10:16
PROVIDERS: ATTEND Family Medicine
DX: N28.1 Cyst of kidney, acquired (principal)
CPT/HCPCS: 74183; A9576

== ENCOUNTER → 2022-02-15 | Outpatient (CLI) | payer MEDICARE, MEDICAID ==
[~2022-02-15] MED LIST changes: -PROHANCE 279.3MG/ML 15ML VIAL ONE
[2022-02-15 13:45] LABS: BASO # 0.1 10^3/uL (0.0-0.2); BASO % 0.7 % (0.0-1.0); EOS # 0.6 10^3/uL (0.0-0.5); HEMATOCRIT 43.3 % (42.0-52.0); HEMOGLOBIN 13.7 g/dl (13.5-17.5); LYMPH # 2.2 10^3/uL (1.5-5.0); LYMPH % 30.9 % (24.0-44.0); MEAN CORPUSCULAR HEMOGLOBIN 27.7 pg (27.0-33.0); MEAN CORPUSCULAR HGB CONC 31.6 g/dl (32.0-36.5); MEAN CORPUSCULAR VOLUME 87.7 fl (80.0-96.0); MONO # 0.7 10^3/uL (0.0-0.8); MONO % 10.3 % (2.0-8.0); NEUTROPHILS # 3.6 10^3/uL (1.5-8.5); NEUTROPHILS % 49.8 % (36.0-66.0); PLATELET COUNT, AUTOMATED 271 10^3/uL (150-450); RED BLOOD COUNT 4.94 10^6/uL (4.30-6.10); WHITE BLOOD COUNT 7.2 10^3/uL (4.0-10.0)
[2022-02-15 14:07] LABS: HEMOGLOBIN A1c 5.5 % (4.0-6.0)
[2022-02-15 14:15] LABS: CREATININE, URINE 165.5 MG/DL; MALB URINE SIEMENS < 3.0 MG/DL; MAU/CREAT RATIO 1.8 MCG/MG (0.0-30.0)
[2022-02-15 14:17] LABS: ALBUMIN 3.9 G/DL (3.2-5.2); BLOOD UREA NITROGEN 19 MG/DL (9-23); CALCIUM LEVEL 9.3 MG/DL (8.3-10.6); CARBON DIOXIDE LEVEL 29 MMOL/L (20-31); CHLORIDE LEVEL 106 MMOL/L (98-107); CREATININE FOR GFR 1.08 MG/DL (0.70-1.30); GLOMERULAR FILTRATION RATE > 60.0 (>42); GLUCOSE, FASTING 90 MG/DL (74-106); PHOSPHORUS LEVEL 3.5 MG/DL (2.4-5.1); POTASSIUM SERUM 4.6 MMOL/L (3.5-5.1); PTH INTACT 36.6 PG/ML (18.5-88.0); SODIUM LEVEL 142 MMOL/L (136-145)
[2022-02-15 14:18] LABS: TOTAL 25(OH) VITAMIN D 56.4 NG/ML (20.0-100.0)
[2022-02-15 14:19] LABS: VITAMIN B12 LEVEL 870 PG/ML (211-911)
== END ==
LOC: M PLALAB 09:32
PROVIDERS: ATTEND Family Medicine
DX: R73.01 Impaired fasting glucose (principal)

== ENCOUNTER → 2022-02-20 | Outpatient (CLI) | payer MEDICARE, MEDICAID ==
[~2022-02-20] MED LIST changes: +ISOVUE-370 76% 100ML VIAL As Ordered ONE
== END ==
LOC: M RAD 08:54
PROVIDERS: ATTEND Family Medicine
DX: R91.1 Solitary pulmonary nodule (principal)
CPT/HCPCS: 71260; Q9967

== ENCOUNTER → 2022-03-03 | Outpatient (CLI) | payer MEDICARE, MEDICAID ==
[~2022-03-03] MED LIST changes: -ISOVUE-370 76% 100ML VIAL As Ordered ONE
[2022-03-03 09:46] LABS: BASO # 0.1 10^3/uL (0.0-0.2); BASO % 0.6 % (0.0-1.0); EOS # 0.5 10^3/uL (0.0-0.5); EOS % 5.9 % (0.0-3.0); HEMATOCRIT 43.2 % (42.0-52.0); HEMOGLOBIN 13.2 g/dl (13.5-17.5); LYMPH # 2.4 10^3/uL (1.5-5.0); LYMPH % 30.4 % (24.0-44.0); MEAN CORPUSCULAR HEMOGLOBIN 26.9 pg (27.0-33.0); MEAN CORPUSCULAR HGB CONC 30.6 g/dl (32.0-36.5); MONO # 0.9 10^3/uL (0.0-0.8); MONO % 11.4 % (2.0-8.0); NEUTROPHILS % 51.4 % (36.0-66.0); PLATELET COUNT, AUTOMATED 259 10^3/uL (150-450); RED BLOOD COUNT 4.91 10^6/uL (4.30-6.10); WHITE BLOOD COUNT 7.8 10^3/uL (4.0-10.0)
[2022-03-03 10:18] LABS: HEMOGLOBIN A1c 5.4 % (4.0-6.0)
[2022-03-03 10:19] LABS: ALBUMIN 3.8 G/DL (3.2-5.2); BLOOD UREA NITROGEN 16 MG/DL (9-23); CARBON DIOXIDE LEVEL 30 MMOL/L (20-31); CHLORIDE LEVEL 107 MMOL/L (98-107); CREATININE FOR GFR 1.03 MG/DL (0.70-1.30); GLOMERULAR FILTRATION RATE > 60.0 (>42); GLUCOSE, FASTING 96 MG/DL (74-106); PHOSPHORUS LEVEL 3.3 MG/DL (2.4-5.1); POTASSIUM SERUM 4.2 MMOL/L (3.5-5.1); SODIUM LEVEL 143 MMOL/L (136-145)
[2022-03-03 10:20] LABS: CREATININE, URINE 114.3 MG/DL; MALB URINE SIEMENS < 3.0 MG/DL; MAU/CREAT RATIO 2.6 MCG/MG (0.0-30.0); VITAMIN B12 LEVEL 492 PG/ML (211-911)
[2022-03-03 10:32] LABS: PTH INTACT 45.4 PG/ML (18.5-88.0)
== END ==
LOC: M WUC 08:07
PROVIDERS: ATTEND Family Medicine
DX: E53.8 Deficiency of other specified B group vitamins (principal); E55.9 Vitamin D deficiency, unspecified; I10 Essential (primary) hypertension; R73.01 Impaired fasting glucose

== ENCOUNTER → 2022-03-07 | Outpatient (CLI) | payer MEDICARE, MEDICAID | LOC: M WUC 14:38 | PROVIDERS: ATTEND Family Medicine | DX: M47.816 Spondylosis without myelopathy or radiculopathy, lumbar region (principal) ==

== ENCOUNTER 2022-05-02 11:29 | Outpatient (RCR) | payer MEDICARE, MEDICAID | END 2022-05-05 | LOC: M PT 11:29 | PROVIDERS: ATTEND Family Medicine | DX: M47.816 Spondylosis without myelopathy or radiculopathy, lumbar region (principal) ==

== ENCOUNTER 2022-05-26 12:37 | Outpatient (RCR) | payer MEDICARE, MEDICAID ==
[~2022-05-26 12:37] MED LIST changes: +ARTIDRO4 OU; +FLUT50SP17 NARES; -FLUTISP NARES; -POLYOPD OU
== END 2022-06-04 ==
LOC: M PT 12:37
PROVIDERS: ATTEND Family Medicine
DX: M47.816 Spondylosis without myelopathy or radiculopathy, lumbar region (principal)

== ENCOUNTER → 2022-06-06 | Outpatient (CLI) | payer MEDICARE, MEDICAID ==
[2022-06-06 14:02] LABS: BASO % 0.6 % (0.0-1.0); EOS # 0.6 10^3/uL (0.0-0.5); EOS % 7.7 % (0.0-3.0); HEMATOCRIT 41.2 % (42.0-52.0); LYMPH # 1.9 10^3/uL (1.5-5.0); LYMPH % 26.2 % (24.0-44.0); MEAN CORPUSCULAR HEMOGLOBIN 27.7 pg (27.0-33.0); MEAN CORPUSCULAR HGB CONC 31.6 g/dl (32.0-36.5); MEAN CORPUSCULAR VOLUME 87.7 fl (80.0-96.0); MONO # 0.9 10^3/uL (0.0-0.8); MONO % 12.2 % (2.0-8.0); NEUTROPHILS # 3.8 10^3/uL (1.5-8.5); NEUTROPHILS % 53.2 % (36.0-66.0); PLATELET COUNT, AUTOMATED 258 10^3/uL (150-450); WHITE BLOOD COUNT 7.1 10^3/uL (4.0-10.0)
[2022-06-06 14:23] LABS: ALBUMIN 3.7 G/DL (3.2-5.2); ALKALINE PHOSPHATASE 76 U/L (46-116); ALT/SGPT 26 U/L (7.0-40); AST/SGOT 22 U/L (<34); BILIRUBIN,TOTAL 0.6 MG/DL (0.3-1.2); BLOOD UREA NITROGEN 12 MG/DL (9-23); CALCIUM LEVEL 9.4 MG/DL (8.3-10.6); CARBON DIOXIDE LEVEL 31 MMOL/L (20-31); CHLORIDE LEVEL 108 MMOL/L (98-107); CHOLESTEROL LEVEL 127 MG/DL (<200); CHOLESTEROL RISK RATIO 2.01 (<5); CREATININE FOR GFR 1.02 MG/DL (0.70-1.30); GLOMERULAR FILTRATION RATE > 60.0 (>42); GLUCOSE, FASTING 87 MG/DL (74-106); HDL CHOLESTEROL 62.9 MG/DL (>40); LDL CHOLESTEROL 50.9 MG/DL (<100); MAGNESIUM LEVEL 2.2 MG/DL (1.8-2.4); NON-HDL-C 64.1 MG/DL; POTASSIUM SERUM 4.4 MMOL/L (3.5-5.1); SODIUM LEVEL 140 MMOL/L (136-145); TOTAL PROTEIN 6.2 G/DL (5.7-8.2); TRIGLYCERIDES LEVEL 66 MG/DL (<150)
[2022-06-06 14:24] LABS: FERRITIN 550.2 NG/ML (10.5-307.3)
== END ==
LOC: M PLALAB 11:18
PROVIDERS: ATTEND Family Medicine
DX: I10 Essential (primary) hypertension (principal); Z12.5 Encounter for screening for malignant neoplasm of prostate; D50.9 Iron deficiency anemia, unspecified
CPT/HCPCS: 36415; 80053; 80061; 82728; 83735; 85025; 85046; G0103

== ENCOUNTER → 2022-06-09 | Outpatient (CLI) | payer MEDICARE, MEDICAID | LOC: M PLARAD 08:41 | PROVIDERS: ATTEND Family Medicine | DX: N28.89 Other specified disorders of kidney and ureter (principal) ==

== ENCOUNTER → 2022-06-16 | Outpatient (CLI) | payer MEDICARE, MEDICAID ==
[2022-06-16 09:56] LABS: BASO # 0.1 10^3/uL (0.0-0.2); BASO % 0.7 % (0.0-1.0); EOS # 0.5 10^3/uL (0.0-0.5); EOS % 6.6 % (0.0-3.0); HEMOGLOBIN 13.6 g/dl (13.5-17.5); LYMPH # 2.4 10^3/uL (1.5-5.0); LYMPH % 33.2 % (24.0-44.0); MEAN CORPUSCULAR HEMOGLOBIN 27.6 pg (27.0-33.0); MEAN CORPUSCULAR HGB CONC 31.6 g/dl (32.0-36.5); MEAN CORPUSCULAR VOLUME 87.4 fl (80.0-96.0); MONO # 0.9 10^3/uL (0.0-0.8); MONO % 12.2 % (2.0-8.0); NEUTROPHILS # 3.3 10^3/uL (1.5-8.5); PLATELET COUNT, AUTOMATED 258 10^3/uL (150-450); RED BLOOD COUNT 4.92 10^6/uL (4.30-6.10); WHITE BLOOD COUNT 7.1 10^3/uL (4.0-10.0)
[2022-06-16 10:21] LABS: ALBUMIN 3.6 G/DL (3.2-5.2); ALKALINE PHOSPHATASE 82 U/L (46-116); ALT/SGPT 31 U/L (7.0-40); AST/SGOT 27 U/L (<34); BILIRUBIN,TOTAL 0.6 MG/DL (0.3-1.2); BLOOD UREA NITROGEN 12 MG/DL (9-23); CALCIUM LEVEL 8.9 MG/DL (8.3-10.6); CARBON DIOXIDE LEVEL 30 MMOL/L (20-31); CHLORIDE LEVEL 107 MMOL/L (98-107); CHOLESTEROL LEVEL 140 MG/DL (<200); CHOLESTEROL RISK RATIO 2.23 (<5); CREATININE FOR GFR 1.07 MG/DL (0.70-1.30); GLOMERULAR FILTRATION RATE > 60.0 (>42); GLUCOSE, FASTING 88 MG/DL (74-106); HDL CHOLESTEROL 62.7 MG/DL (>40); LDL CHOLESTEROL 65.5 MG/DL (<100); MAGNESIUM LEVEL 2.1 MG/DL (1.8-2.4); NON-HDL-C 77.3 MG/DL; POTASSIUM SERUM 4.6 MMOL/L (3.5-5.1); SODIUM LEVEL 141 MMOL/L (136-145); TOTAL PROTEIN 6.1 G/DL (5.7-8.2); TRIGLYCERIDES LEVEL 59 MG/DL (<150)
[2022-06-16 10:22] LABS: FERRITIN 480.6 NG/ML (10.5-307.3)
== END ==
LOC: M WUC 07:51
PROVIDERS: ATTEND Family Medicine
DX: D50.9 Iron deficiency anemia, unspecified (principal); I10 Essential (primary) hypertension; Z12.5 Encounter for screening for malignant neoplasm of prostate
CPT/HCPCS: 36415; 80053; 80061; 82728; 83735; 85025; 85046; G0103

== ENCOUNTER → 2022-06-19 | Outpatient (REF) | payer MEDICARE, MEDICAID | LOC: M SFHCPLAZ 15:25 | PROVIDERS: ATTEND Family Medicine | DX: D50.9 Iron deficiency anemia, unspecified (principal); I10 Essential (primary) hypertension ==

== ENCOUNTER 2022-08-04 16:58 | Emergency (ER) | payer MEDICARE, MEDICAID ==
[~2022-08-04] VITALS: Ht 170.2 cm; Wt 64.5 kg
[2022-08-04] MEDS ORDERED: NS 1,000 ML IV ONE (18:00)
[2022-08-04 18:41] LABS: BASO % 0.6 % (0.0-1.0); EOS # 0.3 10^3/uL (0.0-0.5); HEMATOCRIT 41.2 % (42.0-52.0); HEMOGLOBIN 13.2 g/dl (13.5-17.5); LYMPH # 1.3 10^3/uL (1.5-5.0); LYMPH % 19.7 % (24.0-44.0); MEAN CORPUSCULAR HEMOGLOBIN 27.4 pg (27.0-33.0); MEAN CORPUSCULAR VOLUME 85.5 fl (80.0-96.0); MONO # 0.6 10^3/uL (0.0-0.8); MONO % 9.6 % (2.0-8.0); NEUTROPHILS # 4.2 10^3/uL (1.5-8.5); NEUTROPHILS % 64.6 % (36.0-66.0); PLATELET COUNT, AUTOMATED 272 10^3/uL (150-450); RED BLOOD COUNT 4.82 10^6/uL (4.30-6.10); WHITE BLOOD COUNT 6.5 10^3/uL (4.0-10.0)
[2022-08-04 19:05] LABS: ALBUMIN 4.3 G/DL (3.2-5.2); ALKALINE PHOSPHATASE 80 U/L (46-116); ALT/SGPT 9 U/L (7.0-40); AST/SGOT 31 U/L (<34); BILIRUBIN,DIRECT 0.2 MG/DL (<0.4); BILIRUBIN,TOTAL 0.8 MG/DL (0.3-1.2); BLOOD UREA NITROGEN 16 MG/DL (9-23); CALCIUM LEVEL 9.2 MG/DL (8.3-10.6); CARBON DIOXIDE LEVEL 26 MMOL/L (20-31); CHLORIDE LEVEL 107 MMOL/L (98-107); CREATININE FOR GFR 1.05 MG/DL (0.70-1.30); GLOMERULAR FILTRATION RATE > 60.0 (>42); GLUCOSE, FASTING 88 MG/DL (74-106); POTASSIUM SERUM 3.9 MMOL/L (3.5-5.1); SODIUM LEVEL 139 MMOL/L (136-145); TOTAL PROTEIN 6.6 G/DL (5.7-8.2)
[2022-08-04 19:18] LABS: INR 1.02; PROTHROMBIN TIME 13.6 SECONDS (12.5-14.5)
[2022-08-04] MEDS ORDERED: FLOM0.4C39 PO (19:59)
[2022-08-04 20:09] VITALS: BP 138/74; TEMP 98.4; O2SAT 99
== END 2022-08-04 19:55 | disposition home or self-care (01) ==
LOC: M ED 16:58
DX: R31.0 Gross hematuria (principal); N40.1 Benign prostatic hyperplasia with lower urinary tract symptoms; N32.89 Other specified disorders of bladder; I48.91 Unspecified atrial fibrillation; E11.22 Type 2 diabetes mellitus with diabetic chronic kidney disease; N18.2 Chronic kidney disease, stage 2 (mild); Z79.899 Other long term (current) drug therapy; Z79.01 Long term (current) use of anticoagulants; Z79.51 Long term (current) use of inhaled steroids; Z88.2 Allergy status to sulfonamides; Z88.5 Allergy status to narcotic agent; Z88.8 Allergy status to other drugs, medicaments and biological substances; Z91.011 Allergy to milk products

== ENCOUNTER → 2022-08-07 | Outpatient (REF) | payer MEDICARE, MEDICAID ==
[~2022-08-07] MED LIST changes: +FLOM0.4C39 PO
== END ==
LOC: M SFHCPLAZ 15:29
PROVIDERS: ATTEND Family Medicine
DX: R31.0 Gross hematuria (principal)

== ENCOUNTER → 2022-08-07 | Outpatient (CLI) | payer MEDICARE, MEDICAID ==
[2022-08-07 17:06] LABS: APPEARANCE, URINE HAZY (CLEAR); BACTERIA, URINE AUTO NEGATIVE (NEGATIVE); BILIRUBIN, URINE AUTO NEGATIVE (NEGATIVE); BLOOD, URINE BLOOD NEGATIVE (NEGATIVE); COLOR, URINE YELLOW (YELLOW); GLUCOSE, URINE (UA) AUTO NEGATIVE (NEGATIVE); KETONE, URINE AUTO NEGATIVE (NEGATIVE); LEUKOCYTE ESTERASE, URINE AUTO NEGATIVE (NEGATIVE); MUCUS, URINE SMALL (NEGATIVE); NITRITE, URINE AUTO NEGATIVE (NEGATIVE); PROTEIN, URINE AUTO NEGATIVE (NEGATIVE); RBC, URINE AUTO 1 /HPF (0-3); SPECIFIC GRAVITY URINE AUTO 1.025 (1.002-1.035); SQUAMOUS EPITHELIAL CELL UR AU 0 /HPF (0-6); WBC, URINE AUTO 1 /HPF (0-3)
[2022-08-07 17:09] LABS: BASO % 0.5 % (0.0-1.0); EOS # 0.6 10^3/uL (0.0-0.5); EOS % 7.2 % (0.0-3.0); HEMATOCRIT 39.9 % (42.0-52.0); HEMOGLOBIN 12.8 g/dl (13.5-17.5); LYMPH # 1.9 10^3/uL (1.5-5.0); LYMPH % 23.2 % (24.0-44.0); MEAN CORPUSCULAR HEMOGLOBIN 27.5 pg (27.0-33.0); MEAN CORPUSCULAR HGB CONC 32.1 g/dl (32.0-36.5); MEAN CORPUSCULAR VOLUME 85.8 fl (80.0-96.0); MONO # 0.9 10^3/uL (0.0-0.8); MONO % 10.5 % (2.0-8.0); NEUTROPHILS # 4.8 10^3/uL (1.5-8.5); NEUTROPHILS % 58.2 % (36.0-66.0); PLATELET COUNT, AUTOMATED 269 10^3/uL (150-450); RED BLOOD COUNT 4.65 10^6/uL (4.30-6.10); WHITE BLOOD COUNT 8.3 10^3/uL (4.0-10.0)
[2022-08-07 17:37] LABS: ALBUMIN 3.7 G/DL (3.2-5.2); ALKALINE PHOSPHATASE 76 U/L (46-116); ALT/SGPT 22 U/L (7.0-40); AST/SGOT 15 U/L (<34); BILIRUBIN,TOTAL 0.5 MG/DL (0.3-1.2); BLOOD UREA NITROGEN 14 MG/DL (9-23); CALCIUM LEVEL 9.9 MG/DL (8.3-10.6); CARBON DIOXIDE LEVEL 28 MMOL/L (20-31); CHLORIDE LEVEL 106 MMOL/L (98-107); CREATININE FOR GFR 1.19 MG/DL (0.70-1.30); GLOMERULAR FILTRATION RATE > 60.0 (>42); GLUCOSE, FASTING 127 MG/DL (74-106); POTASSIUM SERUM 3.8 MMOL/L (3.5-5.1); SODIUM LEVEL 141 MMOL/L (136-145); TOTAL PROTEIN 6.1 G/DL (5.7-8.2)
== END ==
LOC: M LAB 16:26
PROVIDERS: ATTEND Family Medicine
DX: R31.0 Gross hematuria (principal)

== ENCOUNTER → 2022-08-17 | Outpatient (REF) | payer MEDICARE, MEDICAID | LOC: M SFHCPLAZ 09:49 | PROVIDERS: ATTEND Family Medicine | DX: R31.0 Gross hematuria (principal) ==

== ENCOUNTER → 2022-09-13 | Outpatient (CLI) | payer MEDICARE, MEDICAID | LOC: M PLAIMG 14:29 | PROVIDERS: ATTEND Nurse Practitioner Adult Health | DX: R05.9 Cough, unspecified (principal) ==

== ENCOUNTER → 2022-10-23 | Outpatient (REF) | payer OTHER, MEDICAID ==
[~2022-10-23] MED LIST changes: +EZET10TA58 PO; -ZETI10TA16 PO
== END ==
LOC: M SFHCPLAZ 15:52
PROVIDERS: ATTEND Family Medicine
DX: D50.9 Iron deficiency anemia, unspecified (principal); R73.01 Impaired fasting glucose; E55.9 Vitamin D deficiency, unspecified; E78.5 Hyperlipidemia, unspecified

== ENCOUNTER → 2022-10-23 | Outpatient (CLI) | payer OTHER, MEDICAID ==
[2022-10-23 11:06] LABS: BASO % 0.6 % (0.0-1.0); EOS # 0.5 10^3/uL (0.0-0.5); EOS % 7.8 % (0.0-3.0); HEMATOCRIT 43.3 % (42.0-52.0); HEMOGLOBIN 13.7 g/dl (13.5-17.5); LYMPH % 30.8 % (24.0-44.0); MEAN CORPUSCULAR HEMOGLOBIN 27.7 pg (27.0-33.0); MEAN CORPUSCULAR HGB CONC 31.6 g/dl (32.0-36.5); MEAN CORPUSCULAR VOLUME 87.5 fl (80.0-96.0); MONO # 0.8 10^3/uL (0.0-0.8); MONO % 12.9 % (2.0-8.0); NEUTROPHILS # 3.1 10^3/uL (1.5-8.5); NEUTROPHILS % 47.6 % (36.0-66.0); PLATELET COUNT, AUTOMATED 282 10^3/uL (150-450); RED BLOOD COUNT 4.95 10^6/uL (4.30-6.10); WHITE BLOOD COUNT 6.5 10^3/uL (4.0-10.0)
[2022-10-25 15:12] LABS: H PYLORI SERUM QUANT IgG ABY 0.21 (0.00-0.79); SOLUBLE TRANSFERRIN RECEPTOR 17.1 nmol/L (12.2-27.3)
== END ==
LOC: M PLALAB 07:45
PROVIDERS: ATTEND Family Medicine
DX: D50.9 Iron deficiency anemia, unspecified (principal)

== ENCOUNTER 2022-12-29 10:15 | Emergency (ER) | payer OTHER, MEDICAID ==
[~2022-12-29] VITALS: Ht 170.2 cm; Wt 64.8 kg
[2022-12-29 10:16] VITALS: BP 125/81; TEMP 99; O2SAT 98
== END 2022-12-29 12:02 | disposition home or self-care (01) ==
LOC: M ED 10:15
DX: S09.90XA Unspecified injury of head, initial encounter (principal); W22.8XXA Striking against or struck by other objects, initial encounter; Y92.093 Driveway of other non-institutional residence as the place of occurrence of the external cause; R51.9 Headache, unspecified; J44.9 Chronic obstructive pulmonary disease, unspecified; I48.91 Unspecified atrial fibrillation; N18.2 Chronic kidney disease, stage 2 (mild); E11.22 Type 2 diabetes mellitus with diabetic chronic kidney disease; Z87.891 Personal history of nicotine dependence; Z79.899 Other long term (current) drug therapy; Z79.01 Long term (current) use of anticoagulants; Z88.5 Allergy status to narcotic agent; Z88.8 Allergy status to other drugs, medicaments and biological substances; Z88.2 Allergy status to sulfonamides; Z91.011 Allergy to milk products

== ENCOUNTER → 2023-01-02 | Outpatient (CLI) | payer OTHER, MEDICAID ==
[~2023-01-02] MED LIST changes: +PROHANCE 279.3MG/ML 15ML VIAL As Ordered ONE
== END ==
LOC: M RAD 12:28
PROVIDERS: ATTEND Family Medicine
DX: N28.89 Other specified disorders of kidney and ureter (principal)
CPT/HCPCS: 74183; A9576

== ENCOUNTER → 2023-02-08 | Outpatient (REF) | payer OTHER, MEDICAID ==
[~2023-02-08] MED LIST changes: -FLUT50SP17 NARES; +FLUTISP NARES; -PROHANCE 279.3MG/ML 15ML VIAL As Ordered ONE
== END ==
LOC: M SFHCPLAZ 13:25
PROVIDERS: ATTEND Student in an Organized Health Care Education/Training Program
DX: R09.89 Other specified symptoms and signs involving the circulatory and respiratory systems (principal)

== ENCOUNTER → 2023-02-23 | Outpatient (CLI) | payer OTHER, MEDICAID ==
[2023-02-23 13:04] LABS: BASO % 0.6 % (0.0-1.0); EOS # 0.4 10^3/uL (0.0-0.5); EOS % 5.8 % (0.0-3.0); HEMATOCRIT 41.8 % (42.0-52.0); HEMOGLOBIN 13.2 g/dl (13.5-17.5); LYMPH # 2.1 10^3/uL (1.5-5.0); LYMPH % 29.4 % (24.0-44.0); MEAN CORPUSCULAR HEMOGLOBIN 27.6 pg (27.0-33.0); MEAN CORPUSCULAR HGB CONC 31.6 g/dl (32.0-36.5); MEAN CORPUSCULAR VOLUME 87.3 fl (80.0-96.0); MONO # 0.9 10^3/uL (0.0-0.8); MONO % 12.1 % (2.0-8.0); NEUTROPHILS # 3.6 10^3/uL (1.5-8.5); NEUTROPHILS % 51.8 % (36.0-66.0); PLATELET COUNT, AUTOMATED 255 10^3/uL (150-450); RED BLOOD COUNT 4.79 10^6/uL (4.30-6.10)
[2023-02-23 13:38] LABS: CHOLESTEROL RISK RATIO 2.18 (<5); HDL CHOLESTEROL 66.3 MG/DL (>40); LDL CHOLESTEROL 60.9 MG/DL (<100); NON-HDL-C 78.7 MG/DL; PERCENT SATURATION 35.2 % (19.7-50.0); PTH INTACT 25.8 PG/ML (18.5-88.0)
[2023-02-23 13:39] LABS: TOTAL 25(OH) VITAMIN D 65.5 NG/ML (20.0-100.0)
[2023-02-23 13:40] LABS: FERRITIN 440.7 NG/ML (10.5-307.3)
== END ==
LOC: M WUC 10:26
PROVIDERS: ATTEND Family Medicine
DX: D50.9 Iron deficiency anemia, unspecified (principal); E55.9 Vitamin D deficiency, unspecified; E78.5 Hyperlipidemia, unspecified; E83.19 Other disorders of iron metabolism

== ENCOUNTER → 2023-03-06 | Outpatient (REF) | payer OTHER, MEDICAID | LOC: M SFHCPLAZ 12:48 | PROVIDERS: ATTEND Family Medicine | DX: D50.9 Iron deficiency anemia, unspecified (principal); E53.8 Deficiency of other specified B group vitamins; R73.01 Impaired fasting glucose; E78.5 Hyperlipidemia, unspecified; Z12.5 Encounter for screening for malignant neoplasm of prostate ==

== ENCOUNTER → 2023-03-30 | Outpatient (CLI) | payer OTHER, MEDICAID ==
[2023-03-30 12:44] LABS: ALBUMIN 3.9 G/DL (3.2-5.2); BLOOD UREA NITROGEN 15 MG/DL (9-23); CALCIUM LEVEL 9.2 MG/DL (8.3-10.6); CARBON DIOXIDE LEVEL 28 MMOL/L (20-31); CHLORIDE LEVEL 106 MMOL/L (98-107); CREATININE FOR GFR 0.97 MG/DL (0.70-1.30); GLOMERULAR FILTRATION RATE > 60.0 (>42); GLUCOSE, FASTING 94 MG/DL (74-106); PHOSPHORUS LEVEL 3.3 MG/DL (2.4-5.1); POTASSIUM SERUM 4.2 MMOL/L (3.5-5.1); SODIUM LEVEL 139 MMOL/L (136-145)
== END ==
LOC: M WUC 10:21
PROVIDERS: ATTEND Family Medicine
DX: N18.2 Chronic kidney disease, stage 2 (mild) (principal)

== ENCOUNTER → 2023-04-02 | Outpatient (CLI) | payer OTHER, MEDICAID ==
[~2023-04-02] MED LIST changes: +ISOVUE-370 76% 100ML VIAL IV ONE
== END ==
LOC: M PLAIMG 11:16
PROVIDERS: ATTEND Family Medicine
DX: R91.1 Solitary pulmonary nodule (principal)
CPT/HCPCS: 71260; Q9967

== ENCOUNTER → 2023-04-04 | Outpatient (REF) | payer OTHER, MEDICAID ==
[~2023-04-04] MED LIST changes: -ISOVUE-370 76% 100ML VIAL IV ONE
== END ==
LOC: M SFHCPLAZ 16:44
PROVIDERS: ATTEND Nurse Practitioner Adult Health
DX: R09.89 Other specified symptoms and signs involving the circulatory and respiratory systems (principal)

== ENCOUNTER → 2023-07-07 | Outpatient (CLI) | payer OTHER, MEDICAID ==
[~2023-07-07] MED LIST changes: +DOXY-323 PO; -DOXY-443 PO
[2023-07-07 10:55] LABS: BASO # 0.1 10^3/uL (0.0-0.2); BASO % 0.9 % (0.0-1.0); EOS # 0.3 10^3/uL (0.0-0.5); EOS % 4.7 % (0.0-3.0); HEMATOCRIT 41.1 % (42.0-52.0); HEMOGLOBIN 13.2 g/dl (13.5-17.5); LYMPH # 1.4 10^3/uL (1.5-5.0); LYMPH % 22.4 % (24.0-44.0); MEAN CORPUSCULAR HGB CONC 32.1 g/dl (32.0-36.5); MEAN CORPUSCULAR VOLUME 87.1 fl (80.0-96.0); MONO # 0.7 10^3/uL (0.0-0.8); MONO % 10.5 % (2.0-8.0); NEUTROPHILS # 3.9 10^3/uL (1.5-8.5); NEUTROPHILS % 61.2 % (36.0-66.0); PLATELET COUNT, AUTOMATED 268 10^3/uL (150-450); RED BLOOD COUNT 4.72 10^6/uL (4.30-6.10); WHITE BLOOD COUNT 6.4 10^3/uL (4.0-10.0)
[2023-07-07 11:10] LABS: HEMOGLOBIN A1c 5.7 % (4.0-6.0)
[2023-07-07 11:25] LABS: FERRITIN 580.8 NG/ML (10.5-307.3)
[2023-07-07 11:26] LABS: FREE T4 0.94 NG/DL (0.89-1.76)
[2023-07-07 11:29] LABS: PSA SCREENING 2.74 NG/ML (< 4.00)
[2023-07-07 11:34] LABS: THYROID STIMULATING HORMONE 2.378 uIU/ML (0.55-4.78)
== END ==
LOC: M LAB 10:35
PROVIDERS: ATTEND Family Medicine
DX: R73.01 Impaired fasting glucose (principal); Z12.5 Encounter for screening for malignant neoplasm of prostate; D50.9 Iron deficiency anemia, unspecified; E78.5 Hyperlipidemia, unspecified
CPT/HCPCS: 36415; 82607; 82728; 83036; 83520; 83525; 84439; 84443; 85025; G0103

== ENCOUNTER → 2023-07-10 | Outpatient (REF) | payer OTHER, MEDICAID | LOC: M SFHCPLAZ 14:27 | PROVIDERS: ATTEND Family Medicine | DX: D50.9 Iron deficiency anemia, unspecified (principal); R73.01 Impaired fasting glucose; Z12.5 Encounter for screening for malignant neoplasm of prostate; I10 Essential (primary) hypertension; J44.9 Chronic obstructive pulmonary disease, unspecified ==

== ENCOUNTER → 2023-07-10 | Outpatient (CLI) | payer OTHER, MEDICAID ==
[2023-07-10 19:49] LABS: ALBUMIN 4.2 G/DL (3.2-5.2); ALKALINE PHOSPHATASE 62 U/L (46-116); ALT/SGPT 25 U/L (7.0-40); AST/SGOT 18 U/L (<34); BILIRUBIN,TOTAL 0.9 MG/DL (0.3-1.2); BLOOD UREA NITROGEN 17 MG/DL (9-23); CALCIUM LEVEL 9.6 MG/DL (8.3-10.6); CARBON DIOXIDE LEVEL 28 MMOL/L (20-31); CHLORIDE LEVEL 105 MMOL/L (98-107); GLOMERULAR FILTRATION RATE > 60.0 (>42); GLUCOSE, FASTING 97 MG/DL (74-106); SODIUM LEVEL 140 MMOL/L (136-145); TOTAL PROTEIN 6.6 G/DL (5.7-8.2)
== END ==
LOC: M PLALAB 14:59
PROVIDERS: ATTEND Family Medicine
DX: I10 Essential (primary) hypertension (principal)

== ENCOUNTER → 2023-08-06 | Outpatient (CLI) | payer OTHER, MEDICAID | LOC: M RAD 12:47 | PROVIDERS: ATTEND Family Medicine | DX: E04.1 Nontoxic single thyroid nodule (principal) ==

== ENCOUNTER → 2023-08-22 | Outpatient (CLI) | payer OTHER, MEDICAID ==
[~2023-08-22] MED LIST changes: +PROHANCE 279.3MG/ML 15ML VIAL As Ordered ONE
== END ==
LOC: M RAD 10:16
PROVIDERS: ATTEND Family Medicine
DX: N28.89 Other specified disorders of kidney and ureter (principal)
CPT/HCPCS: 74183; A9576

== ENCOUNTER → 2023-10-29 | Outpatient (CLI) | payer OTHER, MEDICAID ==
[~2023-10-29] MED LIST changes: -PROHANCE 279.3MG/ML 15ML VIAL As Ordered ONE
[2023-10-29 13:32] LABS: ALBUMIN 3.9 G/DL (3.2-5.2); ALKALINE PHOSPHATASE 76 U/L (46-116); ALT/SGPT 28 U/L (7.0-40); AST/SGOT 20 U/L (<34); BILIRUBIN,TOTAL 0.6 MG/DL (0.3-1.2); BLOOD UREA NITROGEN 11 MG/DL (9-23); CARBON DIOXIDE LEVEL 30 MMOL/L (20-31); CHLORIDE LEVEL 108 MMOL/L (98-107); CREATININE FOR GFR 0.98 MG/DL (0.70-1.30); GLOMERULAR FILTRATION RATE > 60.0 (>42); GLUCOSE, FASTING 101 MG/DL (74-106); POTASSIUM SERUM 4.4 MMOL/L (3.5-5.1); SODIUM LEVEL 141 MMOL/L (136-145); TOTAL PROTEIN 6.6 G/DL (5.7-8.2)
== END ==
LOC: M PLALAB 10:06
PROVIDERS: ATTEND Family Medicine
DX: I10 Essential (primary) hypertension (principal)

== ENCOUNTER → 2023-10-30 | Outpatient (CLI) | payer OTHER, MEDICAID ==
[~2023-10-30] MED LIST changes: +ISOVUE-370 76% 100ML VIAL As Ordered ONE
== END ==
LOC: M RAD 10:09
PROVIDERS: ATTEND Family Medicine
DX: R91.1 Solitary pulmonary nodule (principal)
CPT/HCPCS: 71260; Q9967

== ENCOUNTER → 2023-11-30 | Outpatient (CLI) | payer OTHER, MEDICAID ==
[~2023-11-30] MED LIST changes: -DOXY-323 PO; +DOXY-441 PO; -ISOVUE-370 76% 100ML VIAL As Ordered ONE
[2023-11-30 13:05] LABS: C REACTIVE PROTEIN QUANTITATIV < 0.40 MG/DL (<1.0)
[2023-11-30 13:07] LABS: ALBUMIN 3.5 G/DL (3.2-5.2); ALKALINE PHOSPHATASE 66 U/L (40-129); ALT/SGPT 27 U/L (7.0-40); AST/SGOT 18 U/L (<34); BILIRUBIN,TOTAL 0.6 MG/DL (0.3-1.2); BLOOD UREA NITROGEN 14 MG/DL (9-23); CALCIUM LEVEL 8.8 MG/DL (8.3-10.6); CARBON DIOXIDE LEVEL 30 MMOL/L (20-31); CHLORIDE LEVEL 111 MMOL/L (98-107); CREATININE FOR GFR 0.94 MG/DL (0.70-1.30); GLOMERULAR FILTRATION RATE > 60.0 (>42); GLUCOSE, FASTING 96 MG/DL (74-106); MAGNESIUM LEVEL 2.2 MG/DL (1.8-2.4); POTASSIUM SERUM 3.8 MMOL/L (3.5-5.1); SODIUM LEVEL 143 MMOL/L (136-145)
== END ==
LOC: M WUC 09:42
PROVIDERS: ATTEND Family Medicine
DX: I10 Essential (primary) hypertension (principal)

== ENCOUNTER 2024-01-16 11:41 | Emergency (ER) | payer OTHER, MEDICAID ==
[~2024-01-16] VITALS: Ht 170.2 cm; Wt 61.2 kg
[2024-01-16] MEDS ORDERED: TAMSULOSIN 0.4 MG CAP PO ONE (16:50)
[2024-01-16 17:23] VITALS: BP 105/71; TEMP 96.8; O2SAT 96
== END 2024-01-16 17:25 | disposition home or self-care (01) ==
LOC: M ED 11:41
DX: N40.0 Benign prostatic hyperplasia without lower urinary tract symptoms (principal); Z88.2 Allergy status to sulfonamides; Z88.5 Allergy status to narcotic agent; Z88.8 Allergy status to other drugs, medicaments and biological substances; Z91.011 Allergy to milk products; Z79.51 Long term (current) use of inhaled steroids; Z79.01 Long term (current) use of anticoagulants; Z79.899 Other long term (current) drug therapy

== ENCOUNTER → 2024-01-18 | Outpatient (REF) | payer OTHER, MEDICAID ==
[2024-01-18 15:31] LABS: APPEARANCE, URINE HAZY (CLEAR); BACTERIA, URINE AUTO NEGATIVE (NEGATIVE); BILIRUBIN, URINE AUTO NEGATIVE (NEGATIVE); BLOOD, URINE BLOOD NEGATIVE (NEGATIVE); CALCIUM OXALATE CRYSTALS MODERATE; COLOR, URINE YELLOW (YELLOW); GLUCOSE, URINE (UA) AUTO NEGATIVE (NEGATIVE); KETONE, URINE AUTO NEGATIVE (NEGATIVE); LEUKOCYTE ESTERASE, URINE AUTO NEGATIVE (NEGATIVE); MUCUS, URINE SMALL (NEGATIVE); NITRITE, URINE AUTO NEGATIVE (NEGATIVE); PROTEIN, URINE AUTO NEGATIVE (NEGATIVE); RBC, URINE AUTO 1 /HPF (0-3); SPECIFIC GRAVITY URINE AUTO 1.024 (1.002-1.035); SQUAMOUS EPITHELIAL CELL UR AU 0 /HPF (0-6); WBC, URINE AUTO 1 /HPF (0-3)
== END ==
LOC: M SFHCPLAZ 14:39
PROVIDERS: ATTEND Family Medicine
DX: N40.1 Benign prostatic hyperplasia with lower urinary tract symptoms (principal)

== ENCOUNTER → 2024-03-03 | Outpatient (CLI) | payer MEDICARE, MEDICAID ==
[2024-03-03 14:57] LABS: BASO # 0.1 10^3/uL (0.0-0.2); BASO % 0.9 % (0.0-1.0); EOS # 0.5 10^3/uL (0.0-0.5); EOS % 7.4 % (0.0-3.0); HEMATOCRIT 39.9 % (42.0-52.0); HEMOGLOBIN 12.5 g/dl (13.5-17.5); LYMPH # 1.8 10^3/uL (1.5-5.0); MEAN CORPUSCULAR HEMOGLOBIN 27.8 pg (27.0-33.0); MEAN CORPUSCULAR HGB CONC 31.3 g/dl (32.0-36.5); MEAN CORPUSCULAR VOLUME 88.9 fl (80.0-96.0); MONO # 0.6 10^3/uL (0.0-0.8); MONO % 9.8 % (2.0-8.0); NEUTROPHILS # 3.5 10^3/uL (1.5-8.5); NEUTROPHILS % 53.6 % (36.0-66.0); PLATELET COUNT, AUTOMATED 270 10^3/uL (150-450); RED BLOOD COUNT 4.49 10^6/uL (4.30-6.10); WHITE BLOOD COUNT 6.5 10^3/uL (4.0-10.0)
[2024-03-03 15:07] LABS: ERYTHROCYTE SEDIMENTATION RATE 12 mm/hr (0-20)
[2024-03-03 15:08] LABS: TOTAL IRON BINDING CAPACITY 289 UG/DL (250-425)
[2024-03-03 15:09] LABS: ALBUMIN 3.8 G/DL (3.2-5.2); ALKALINE PHOSPHATASE 65 U/L (40-129); ALT/SGPT 23 U/L (7.0-40); AST/SGOT 21 U/L (<34); BILIRUBIN,TOTAL 0.6 MG/DL (0.3-1.2); BLOOD UREA NITROGEN 14 MG/DL (9-23); C REACTIVE PROTEIN QUANTITATIV < 0.50 MG/DL (<1.0); CARBON DIOXIDE LEVEL 30 MMOL/L (20-31); CHLORIDE LEVEL 106 MMOL/L (98-107); CREATININE FOR GFR 1.11 MG/DL (0.70-1.30); GLOMERULAR FILTRATION RATE > 60.0 (>42); GLUCOSE, FASTING 91 MG/DL (74-106); IRON (FE) 86 UG/DL (65-175); MAGNESIUM LEVEL 2.3 MG/DL (1.8-2.4); PERCENT SATURATION 29.8 % (19.7-50.0); POTASSIUM SERUM 4.3 MMOL/L (3.5-5.1); PSA SCREENING 3.54 NG/ML (< 4.00); SODIUM LEVEL 144 MMOL/L (136-145); TOTAL PROTEIN 6.5 G/DL (5.7-8.2)
[2024-03-03 16:38] LABS: HEMOGLOBIN A1c 5.5 % (4.0-6.0)
[2024-03-04 13:17] LABS: INSULIN LEVEL 5.8 uIU/mL (<=18.4)
[2024-03-05 15:38] LABS: BERMUDA GRASS IGE < 0.10 kU/L (<0.10); BIRCH IGE < 0.10 kU/L (<0.10); COMMON RAGWEED SHORT IGE < 0.10 kU/L (<0.10); D001 IGE D PTERONYSSINUS < 0.10 kU/L (<0.10); D002-IGE D FARINAE < 0.10 kU/L (<0.10); E001-IGE CAT DANDER < 0.10 kU/L (<0.10); E005-IGE DOG DANDER < 0.10 kU/L (<0.10); ELM IGE < 0.10 kU/L (<0.10); I006 IGE COCKROACH < 0.10 kU/L (<0.10); IMMUNOGLOBULIN E FOR ALLERGENS 79 kU/L (<OR=114); M002 IGE CLADOSPORIUM HERBARU < 0.10 kU/L (<0.10); M003 IGE ASPERGILLUS FUMIGATU 2.03 kU/L (<0.10); M006 IGE ALTERNIA ALTERNATA 0.29 kU/L (<0.10); M1-PENICILLIUM NOTATUM 0.22 kU/L (<0.10); MOUSE URINE IGE < 0.10 kU/L (<0.10); MUGWORT IGE < 0.10 kU/L (<0.10); OAK IGE < 0.10 kU/L (<0.10); ROUGH PIGWEED IGE < 0.10 kU/L (<0.10); SHEEP SORREL IGE < 0.10 kU/L (<0.10); SYCAMORE IGE < 0.10 kU/L (<0.10); T001-IGE MAPLE BOX ELDER < 0.10 kU/L (<0.10); T006-IGE MOUNTAIN CEDAR < 0.10 kU/L (<0.10); T014 COTTONWOOD IGE < 0.10 kU/L (<0.10); TIMOTHY GRASS IGE < 0.10 kU/L (<0.10); WALNUT TREE IGE < 0.10 kU/L (<0.10); WHITE ASH IGE < 0.10 kU/L (<0.10); WHITE MULBERRY IGE < 0.10 kU/L (<0.10)
== END ==
LOC: M WUC 10:10
PROVIDERS: ATTEND Family Medicine
DX: D50.9 Iron deficiency anemia, unspecified (principal); I10 Essential (primary) hypertension; R73.01 Impaired fasting glucose; E78.5 Hyperlipidemia, unspecified; J44.9 Chronic obstructive pulmonary disease, unspecified; Z12.5 Encounter for screening for malignant neoplasm of prostate; J30.89 Other allergic rhinitis
CPT/HCPCS: 36415; 80053; 81596; 82785; 83036; 83525; 83550; 83735; 83880; 84238; 85025; 85652; 86003; 86140; G0103

== ENCOUNTER → 2024-03-05 | Outpatient (REF) | payer MEDICARE, MEDICAID ==
[~2024-03-05] MED LIST changes: +ALBU8.5H; +AMLO1TAB24 PO; +BIMA01SOL OD; +DORZ2SOL4; +FINA5TAB2 PO; +FLUT12AE3 INH; +IRBE75TA11 PO; +TAMS1CAP17 PO; +VITA500T40 PO
[2024-03-05 17:40] LABS: APPEARANCE, URINE HAZY (CLEAR); BACTERIA, URINE AUTO NEGATIVE (NEGATIVE); BILIRUBIN, URINE AUTO NEGATIVE (NEGATIVE); BLOOD, URINE BLOOD NEGATIVE (NEGATIVE); CALCIUM OXALATE CRYSTALS MODERATE; COLOR, URINE YELLOW (YELLOW); GLUCOSE, URINE (UA) AUTO NEGATIVE (NEGATIVE); KETONE, URINE AUTO NEGATIVE (NEGATIVE); LEUKOCYTE ESTERASE, URINE AUTO NEGATIVE (NEGATIVE); MUCUS, URINE SMALL (NEGATIVE); NITRITE, URINE AUTO NEGATIVE (NEGATIVE); PROTEIN, URINE AUTO NEGATIVE (NEGATIVE); RBC, URINE AUTO 1 /HPF (0-3); SPECIFIC GRAVITY URINE AUTO 1.023 (1.002-1.035); SQUAMOUS EPITHELIAL CELL UR AU 0 /HPF (0-6); WBC, URINE AUTO 5 /HPF (0-3)
== END ==
LOC: M SMT 17:10
PROVIDERS: ATTEND Urology
DX: R39.9 Unspecified symptoms and signs involving the genitourinary system (principal)

== ENCOUNTER → 2024-03-12 | Outpatient (CLI) | payer MEDICARE, MEDICAID ==
[~2024-03-12] MED LIST changes: -ALBU8.5H; -AMLO1TAB24 PO; -BIMA01SOL OD; -DORZ2SOL4; -FINA5TAB2 PO; -FLUT12AE3 INH; -IRBE75TA11 PO; +PROHANCE 279.3MG/ML 15ML VIAL ONE; -TAMS1CAP17 PO; -VITA500T40 PO
== END ==
LOC: M PLAIMG 12:36
PROVIDERS: ATTEND Family Medicine
DX: N28.89 Other specified disorders of kidney and ureter (principal); K76.89 Other specified diseases of liver
CPT/HCPCS: 74183; A9576

== ENCOUNTER → 2024-03-19 | Outpatient (CLI) | payer MEDICARE, MEDICAID ==
[~2024-03-19] MED LIST changes: -PROHANCE 279.3MG/ML 15ML VIAL ONE
[2024-03-19 17:34] LABS: HEMOGLOBIN 12.3 g/dl (13.5-17.5); MEAN CORPUSCULAR HEMOGLOBIN 28.2 pg (27.0-33.0); MEAN CORPUSCULAR HGB CONC 31.5 g/dl (32.0-36.5); MEAN CORPUSCULAR VOLUME 89.4 fl (80.0-96.0); PLATELET COUNT, AUTOMATED 276 10^3/uL (150-450); RED BLOOD COUNT 4.36 10^6/uL (4.30-6.10); WHITE BLOOD COUNT 6.5 10^3/uL (4.0-10.0)
[2024-03-19 17:37] LABS: ALBUMIN 3.8 G/DL (3.2-5.2); ALKALINE PHOSPHATASE 61 U/L (40-129); ALT/SGPT 24 U/L (7.0-40); AST/SGOT 20 U/L (<34); BILIRUBIN,TOTAL 0.7 MG/DL (0.3-1.2); BLOOD UREA NITROGEN 13 MG/DL (9-23); CALCIUM LEVEL 9.4 MG/DL (8.3-10.6); CARBON DIOXIDE LEVEL 30 MMOL/L (20-31); CHLORIDE LEVEL 105 MMOL/L (98-107); CREATININE FOR GFR 0.87 MG/DL (0.70-1.30); GLOMERULAR FILTRATION RATE > 60.0 (>42); GLUCOSE, FASTING 100 MG/DL (74-106); POTASSIUM SERUM 4.2 MMOL/L (3.5-5.1); SODIUM LEVEL 143 MMOL/L (136-145); TOTAL PROTEIN 6.4 G/DL (5.7-8.2)
== END ==
LOC: M WUC 11:26
PROVIDERS: ATTEND Urology
DX: R39.9 Unspecified symptoms and signs involving the genitourinary system (principal)

== ENCOUNTER 2024-03-23 21:53 | Emergency (ER) | payer MEDICARE, MEDICAID ==
[~2024-03-23] VITALS: Ht 170.2 cm; Wt 59.0 kg
[2024-03-23 22:33] LABS: BASO # 0.1 10^3/uL (0.0-0.2); BASO % 0.9 % (0.0-1.0); EOS # 0.4 10^3/uL (0.0-0.5); EOS % 6.3 % (0.0-3.0); HEMATOCRIT 37.9 % (42.0-52.0); LYMPH # 1.8 10^3/uL (1.5-5.0); LYMPH % 25.3 % (24.0-44.0); MEAN CORPUSCULAR HEMOGLOBIN 27.9 pg (27.0-33.0); MEAN CORPUSCULAR HGB CONC 31.7 g/dl (32.0-36.5); MEAN CORPUSCULAR VOLUME 88.1 fl (80.0-96.0); MONO # 0.9 10^3/uL (0.0-0.8); MONO % 12.4 % (2.0-8.0); NEUTROPHILS # 3.8 10^3/uL (1.5-8.5); NEUTROPHILS % 54.8 % (36.0-66.0); PLATELET COUNT, AUTOMATED 259 10^3/uL (150-450)
[2024-03-23 22:35] LABS: KETONE, URINE AUTO RFX NEGATIVE (NEGATIVE); LEUKOCYTE ESTERASE UR AUTO RFX NEGATIVE (NEGATIVE); MUCUS, URINE RFX SMALL (NEGATIVE); NITRITE, URINE AUTO RFX NEGATIVE (NEGATIVE); RBC, URINE AUTO RFX TNTC /HPF (0-3); SQUAM EPITHELIAL CELL UR AURFX 0 /HPF (0-6); WBC, URINE AUTO RFX 3 /HPF (0-3); YEAST LIKE CELL URINE AUTO RFX SMALL
[2024-03-23 22:54] LABS: BLOOD UREA NITROGEN 17 MG/DL (9-23); CALCIUM LEVEL 8.7 MG/DL (8.3-10.6); CARBON DIOXIDE LEVEL 29 MMOL/L (20-31); CHLORIDE LEVEL 107 MMOL/L (98-107); CREATININE FOR GFR 1.11 MG/DL (0.70-1.30); GLOMERULAR FILTRATION RATE > 60.0 (>42); GLUCOSE, FASTING 110 MG/DL (74-106); SODIUM LEVEL 143 MMOL/L (136-145)
[2024-03-24 00:28] VITALS: TEMP 98.6
[2024-03-24 02:29] VITALS: BP 147/79; O2SAT 99
== END 2024-03-24 04:16 | disposition left against medical advice (07) ==
LOC: M ED 21:53
DX: Z53.21 Procedure and treatment not carried out due to patient leaving prior to being seen by health care provider (principal)

== ENCOUNTER → 2024-04-01 | Outpatient (REF) | payer MEDICARE, MEDICAID ==
[~2024-04-01] MED LIST changes: +ALBU8.5H; +AMLO1TAB24 PO; +BIMA01SOL OD; +DORZ2SOL4; +FINA5TAB2 PO; +FLUT12AE3 INH; +IRBE75TA11 PO; +TAMS1CAP17 PO; +VITA500T40 PO
== END ==
LOC: M SMT 17:26
PROVIDERS: ATTEND Urology
DX: R39.9 Unspecified symptoms and signs involving the genitourinary system (principal)

== ENCOUNTER 2024-04-07 09:05 | Day surgery (SDC) | payer MEDICARE, MEDICAID ==
[~2024-04-07] VITALS: Ht 170.2 cm; Wt 57.1 kg
[~2024-04-07 09:05] MED LIST changes: -FLOM0.4C39 PO; +TAMS-18 PO
[2024-04-07] MEDS: LR 1,000 ML IV SCH (09:58)
[2024-04-07] MEDS ORDERED: fentaNYL 100 MCG/2 ML INJECTION As Ordered ONE (10:08)
[2024-04-07] MEDS ORDERED: propofoL 200 MG/20 ML VIAL As Ordered ONE (10:08)
[2024-04-07] MEDS ORDERED: LIDOCAINE 2% 100MG/5ML SDV (FOR ANES.) As Ordered ONE (10:08)
[2024-04-07] MEDS ORDERED: MIDAZOLAM INJ 2MG/2ML VIAL As Ordered ONE (10:08)
[2024-04-07] MEDS: ceFAZolin SOD 2 GM in IV 1 EA IV ONE (10:29)
[2024-04-07] MEDS: ISOVUE-300 61% 100ML VIAL As Ordered ONE (11:07)
[2024-04-07 11:55] VITALS: BP 139/67; TEMP 97.4; O2SAT 98
== END 2024-04-07 12:20 | disposition home or self-care (01) ==
LOC: M SDC 09:05
PROVIDERS: ATTEND Urology
DX: N21.0 Calculus in bladder (principal); I48.91 Unspecified atrial fibrillation; Z88.3 Allergy status to other anti-infective agents; Z88.8 Allergy status to other drugs, medicaments and biological substances; Z88.5 Allergy status to narcotic agent; Z88.2 Allergy status to sulfonamides; Z91.011 Allergy to milk products; Z79.899 Other long term (current) drug therapy
CPT/HCPCS: 52317; 82365; J0690; J2250; J3010

== ENCOUNTER 2024-04-16 07:33 | Emergency (ER) | payer MEDICARE, MEDICAID ==
[~2024-04-16 07:33] MED LIST changes: +FLOM0.4C39 PO; -TAMS-18 PO
[2024-04-16 08:37] LABS: PROTEIN, URINE MANUAL REFLEX OBSCURED mg/dL (NEGATIVE)
[2024-04-16 08:38] LABS: KETONE, URINE MANUAL REFLEX OBSCURED mg/dL (NEGATIVE); NITRITE, URINE MANUAL RFX OBSCURED (NEGATIVE); UROBILINOGEN, UA MANUAL REFLEX OBSCURED mg/dl (NORMAL)
[2024-04-16 08:39] LABS: BASO % 0.6 % (0.0-1.0); EOS # 0.4 10^3/uL (0.0-0.5); EOS % 5.8 % (0.0-3.0); HEMATOCRIT 39.8 % (42.0-52.0); HEMOGLOBIN 12.6 g/dl (13.5-17.5); LYMPH # 2.5 10^3/uL (1.5-5.0); LYMPH % 35.9 % (24.0-44.0); MEAN CORPUSCULAR HGB CONC 31.7 g/dl (32.0-36.5); MEAN CORPUSCULAR VOLUME 88.4 fl (80.0-96.0); MONO # 0.8 10^3/uL (0.0-0.8); MONO % 11.7 % (2.0-8.0); NEUTROPHILS # 3.2 10^3/uL (1.5-8.5); NEUTROPHILS % 45.7 % (36.0-66.0); PLATELET COUNT, AUTOMATED 261 10^3/uL (150-450); WHITE BLOOD COUNT 7.1 10^3/uL (4.0-10.0)
[2024-04-16 08:41] LABS: MICROSCOPIC EXAM RFX UNSPUN
[2024-04-16 08:44] LABS: HYALINE CAST, URINE RFX NONE SEEN /lpf (0-1); RBC, URINE MAN REFLEX TNTC /hpf (0-3); SQUAMOUS EPITHELIAL URINE RFX NONE SEEN /hpf (SMALL AMT)
[2024-04-16 09:09] LABS: ALBUMIN 3.8 G/DL (3.2-5.2); ALKALINE PHOSPHATASE 67 U/L (40-129); ALT/SGPT 23 U/L (7.0-40); AST/SGOT 20 U/L (<34); BILIRUBIN,TOTAL 0.6 MG/DL (0.3-1.2); BLOOD UREA NITROGEN 10 MG/DL (9-23); CALCIUM LEVEL 9.1 MG/DL (8.3-10.6); CARBON DIOXIDE LEVEL 28 MMOL/L (20-31); CHLORIDE LEVEL 108 MMOL/L (98-107); CREATININE FOR GFR 0.97 MG/DL (0.70-1.30); GLOMERULAR FILTRATION RATE > 60.0 (>42); GLUCOSE, FASTING 106 MG/DL (74-106); POTASSIUM SERUM 3.9 MMOL/L (3.5-5.1); SODIUM LEVEL 145 MMOL/L (136-145); TOTAL PROTEIN 6.8 G/DL (5.7-8.2)
[2024-04-16 09:14] LABS: INR 1.07; PARTIAL THROMBOPLASTIN TIME 32.1 SECONDS (24.8-34.2); PROTHROMBIN TIME 14.2 SECONDS (12.5-14.5)
[2024-04-16] MEDS ORDERED: AMOX875T2 PO (09:27)
[2024-04-16 09:43] VITALS: BP 136/65; TEMP 96.9; O2SAT 99
== END 2024-04-16 09:45 | disposition home or self-care (01) ==
LOC: M ED 07:33
DX: R31.0 Gross hematuria (principal); Z88.2 Allergy status to sulfonamides; Z88.5 Allergy status to narcotic agent; Z88.8 Allergy status to other drugs, medicaments and biological substances; Z91.011 Allergy to milk products

== ENCOUNTER → 2024-05-21 | Outpatient (CLI) | payer MEDICARE, MEDICAID ==
[~2024-05-21] MED LIST changes: +AMOX875T2 PO
[2024-05-21 12:46] LABS: BASO % 0.7 % (0.0-1.0); EOS # 0.3 10^3/uL (0.0-0.5); EOS % 5.4 % (0.0-3.0); HEMOGLOBIN 12.2 g/dl (13.5-17.5); LYMPH # 1.2 10^3/uL (1.5-5.0); LYMPH % 19.6 % (24.0-44.0); MEAN CORPUSCULAR HEMOGLOBIN 27.7 pg (27.0-33.0); MEAN CORPUSCULAR HGB CONC 31.3 g/dl (32.0-36.5); MEAN CORPUSCULAR VOLUME 88.6 fl (80.0-96.0); MONO # 0.8 10^3/uL (0.0-0.8); MONO % 13.7 % (2.0-8.0); NEUTROPHILS # 3.7 10^3/uL (1.5-8.5); NEUTROPHILS % 60.1 % (36.0-66.0); PLATELET COUNT, AUTOMATED 267 10^3/uL (150-450); WHITE BLOOD COUNT 6.1 10^3/uL (4.0-10.0)
[2024-05-21 12:51] LABS: ALBUMIN 3.6 G/DL (3.2-5.2); BILIRUBIN,TOTAL 0.5 MG/DL (0.3-1.2); CALCIUM LEVEL 8.9 MG/DL (8.3-10.6); CREATININE FOR GFR 0.92 MG/DL (0.70-1.30); GLOMERULAR FILTRATION RATE 86.2 (>42); MAGNESIUM LEVEL 2.2 MG/DL (1.8-2.4); POTASSIUM SERUM 3.6 MMOL/L (3.5-5.1); PSA SCREENING 2.78 NG/ML (< 4.00); TOTAL PROTEIN 6.1 G/DL (5.7-8.2)
[2024-05-21 13:12] LABS: HEMOGLOBIN A1c 5.2 % (4.0-6.0)
== END ==
LOC: M WUC 09:23
PROVIDERS: ATTEND Family Medicine
DX: D50.9 Iron deficiency anemia, unspecified (principal); R73.01 Impaired fasting glucose; I10 Essential (primary) hypertension; Z12.5 Encounter for screening for malignant neoplasm of prostate
CPT/HCPCS: 36415; 80053; 83036; 83525; 83735; 83880; 84238; 85025; G0103

== ENCOUNTER → 2024-05-22 | Outpatient (REF) | payer MEDICARE, MEDICAID ==
[2024-05-22 17:36] LABS: APPEARANCE, URINE HAZY (CLEAR); BACTERIA, URINE AUTO NEGATIVE (NEGATIVE); BILIRUBIN, URINE AUTO NEGATIVE (NEGATIVE); BLOOD, URINE BLOOD NEGATIVE (NEGATIVE); CALCIUM OXALATE CRYSTALS LARGE; COLOR, URINE YELLOW (YELLOW); GLUCOSE, URINE (UA) AUTO NEGATIVE (NEGATIVE); KETONE, URINE AUTO NEGATIVE (NEGATIVE); LEUKOCYTE ESTERASE, URINE AUTO NEGATIVE (NEGATIVE); MUCUS, URINE SMALL (NEGATIVE); NITRITE, URINE AUTO NEGATIVE (NEGATIVE); PROTEIN, URINE AUTO NEGATIVE (NEGATIVE); RBC, URINE AUTO 0 /HPF (0-3); SQUAMOUS EPITHELIAL CELL UR AU 0 /HPF (0-6); WBC, URINE AUTO 0 /HPF (0-3)
== END ==
LOC: M SMT 16:46
PROVIDERS: ATTEND Nurse Practitioner Family
DX: R30.0 Dysuria (principal)

== ENCOUNTER 2024-06-21 10:32 | Emergency (ER) | payer MEDICARE, MEDICAID ==
[~2024-06-21] VITALS: Ht 170.2 cm; Wt 57.0 kg
[~2024-06-21 10:32] MED LIST changes: -FLOM0.4C39 PO; +TAMS-18 PO
[2024-06-21 11:56] LABS: BASO % 0.5 % (0.0-1.0); EOS # 0.3 10^3/uL (0.0-0.5); EOS % 3.4 % (0.0-3.0); HEMATOCRIT 38.5 % (42.0-52.0); HEMOGLOBIN 11.8 g/dl (13.5-17.5); LYMPH # 0.9 10^3/uL (1.5-5.0); LYMPH % 12.5 % (24.0-44.0); MEAN CORPUSCULAR HEMOGLOBIN 26.9 pg (27.0-33.0); MEAN CORPUSCULAR HGB CONC 30.6 g/dl (32.0-36.5); MEAN CORPUSCULAR VOLUME 87.7 fl (80.0-96.0); MONO # 0.7 10^3/uL (0.0-0.8); MONO % 9.1 % (2.0-8.0); NEUTROPHILS # 5.5 10^3/uL (1.5-8.5); NEUTROPHILS % 74.1 % (36.0-66.0); PLATELET COUNT, AUTOMATED 269 10^3/uL (150-450); RED BLOOD COUNT 4.39 10^6/uL (4.30-6.10); WHITE BLOOD COUNT 7.5 10^3/uL (4.0-10.0)
[2024-06-21 12:03] LABS: KETONE, URINE AUTO RFX NEGATIVE (NEGATIVE); LEUKOCYTE ESTERASE UR AUTO RFX NEGATIVE (NEGATIVE); MUCUS, URINE RFX SMALL (NEGATIVE); NITRITE, URINE AUTO RFX NEGATIVE (NEGATIVE); RBC, URINE AUTO RFX 3 /HPF (0-3); SQUAM EPITHELIAL CELL UR AURFX 0 /HPF (0-6); WBC, URINE AUTO RFX 2 /HPF (0-3)
[2024-06-21 12:12] LABS: BLOOD UREA NITROGEN 13 MG/DL (9-23); CALCIUM LEVEL 8.9 MG/DL (8.3-10.6); CARBON DIOXIDE LEVEL 30 MMOL/L (20-31); CHLORIDE LEVEL 108 MMOL/L (98-107); GLUCOSE, FASTING 111 MG/DL (74-106); POTASSIUM SERUM 3.8 MMOL/L (3.5-5.1); SODIUM LEVEL 145 MMOL/L (136-145)
[2024-06-21] MEDS ORDERED: ELIQ5TAB (12:49)
[2024-06-21 15:00] LABS: ETHYL ALCOHOL (ETHANOL) < 0.003 % (0.000-0.010)
[2024-06-21 15:02] LABS: ALBUMIN 3.6 G/DL (3.2-5.2); ALKALINE PHOSPHATASE 68 U/L (40-129); ALT/SGPT 22 U/L (7.0-40); AST/SGOT 23 U/L (<34); BILIRUBIN,DIRECT 0.3 MG/DL (<0.4); BILIRUBIN,TOTAL 0.7 MG/DL (0.3-1.2); C REACTIVE PROTEIN QUANTITATIV < 0.50 MG/DL (<1.0); SALICYLATE LEVEL < 3.0 MG/DL (<30); TOTAL PROTEIN 5.9 G/DL (5.7-8.2)
[2024-06-21 15:04] LABS: FOLATE 11.01 NG/ML (>5.4); VITAMIN B12 LEVEL 539 PG/ML (211-911)
[2024-06-21 15:14] LABS: PROCALCITONIN 0.06 ng/ml
[2024-06-21 15:27] LABS: ERYTHROCYTE SEDIMENTATION RATE 14 mm/hr (0-20)
[2024-06-21 15:35] VITALS: BP 145/71; TEMP 98; O2SAT 97
[2024-06-21 15:48] LABS: THYROID STIMULATING HORMONE 1.621 uIU/ML (0.55-4.78)
[2024-06-21 15:58] LABS: AMPHETAMINES LEVEL URINE NEGATIVE (NEGATIVE); BARBITURATES URINE NEGATIVE (NEGATIVE); BENZODIAZEPINES URINE NEGATIVE (NEGATIVE); CANNABINOIDS URINE NEGATIVE (NEGATIVE); COCAINE METABOLITE URINE NEGATIVE (NEGATIVE); METHADONE URINE NEGATIVE (NEGATIVE); OPIATES URINE NEGATIVE (NEGATIVE); PHENCYCLIDINE URINE NEGATIVE (NEGATIVE)
== END 2024-06-21 15:43 | disposition left against medical advice (07) ==
LOC: M ED 10:32 → EDBD 10:32 → CANBEDREQ 15:28 → M ED 15:43
DX: F03.92 Unspecified dementia, unspecified severity, with psychotic disturbance (principal); D49.511 Neoplasm of unspecified behavior of right kidney; D49.512 Neoplasm of unspecified behavior of left kidney; R00.1 Bradycardia, unspecified; I25.2 Old myocardial infarction; I45.10 Unspecified right bundle-branch block; I48.91 Unspecified atrial fibrillation; E78.5 Hyperlipidemia, unspecified; J44.9 Chronic obstructive pulmonary disease, unspecified; D50.9 Iron deficiency anemia, unspecified; I12.9 Hypertensive chronic kidney disease with stage 1 through stage 4 chronic kidney disease, or unspecified chronic kidney disease; Z87.891 Personal history of nicotine dependence; Z88.2 Allergy status to sulfonamides; Z88.8 Allergy status to other drugs, medicaments and biological substances; Z91.011 Allergy to milk products; Z79.1 Long term (current) use of non-steroidal anti-inflammatories (NSAID); Z79.2 Long term (current) use of antibiotics; Z79.01 Long term (current) use of anticoagulants; Z79.899 Other long term (current) drug therapy; Z53.9 Procedure and treatment not carried out, unspecified reason

== ENCOUNTER → 2024-09-02 | Outpatient (CLI) | payer MEDICARE, MEDICAID ==
[~2024-09-02] MED LIST changes: +ELIQ5TAB
== END ==
LOC: M PLAIMG 07:19
PROVIDERS: ATTEND Family Medicine
DX: G31.84 Mild cognitive impairment of uncertain or unknown etiology (principal); H53.2 Diplopia

== ENCOUNTER → 2024-09-20 | Outpatient (CLI) | payer MEDICARE, MEDICAID ==
[2024-09-20 12:05] LABS: CALCIUM LEVEL 9.1 MG/DL (8.3-10.6); CARBON DIOXIDE LEVEL 31.0 MMOL/L (20-31); CHLORIDE LEVEL 107.0 MMOL/L (98-107); CREATININE FOR GFR 0.98 MG/DL (0.70-1.30); GLOMERULAR FILTRATION RATE 79.9 (>42); POTASSIUM SERUM 4.3 MMOL/L (3.5-5.1); SODIUM LEVEL 146.0 MMOL/L (136-145)
== END ==
LOC: M LAB 10:24
PROVIDERS: ATTEND Nurse Practitioner Family
DX: N28.89 Other specified disorders of kidney and ureter (principal)

== ENCOUNTER → 2024-09-24 | Outpatient (CLI) | payer MEDICARE, MEDICAID ==
[~2024-09-24] MED LIST changes: +ISOVUE-370 76% 100 ML VIAL ONE
== END ==
LOC: M PLAIMG 09:00
PROVIDERS: ATTEND Nurse Practitioner Family
DX: N28.89 Other specified disorders of kidney and ureter (principal)
CPT/HCPCS: 74170; Q9967

== ENCOUNTER 2024-10-03 05:21 | Emergency (ER) | payer MEDICARE, MEDICAID ==
[~2024-10-03] VITALS: Ht 170.2 cm; Wt 57.5 kg
[~2024-10-03 05:21] MED LIST changes: -ISOVUE-370 76% 100 ML VIAL ONE
[2024-10-03 06:47] LABS: BASO # 0.0 10^3/uL (0.0-0.2); BASO % 0.6 % (0.0-1.0); EOS # 0.4 10^3/uL (0.0-0.5); EOS % 8.5 % (0.0-3.0); LYMPH # 1.4 10^3/uL (1.5-5.0); LYMPH % 26.6 % (24.0-44.0); MONO # 0.7 10^3/uL (0.0-0.8); MONO % 13.4 % (2.0-8.0); NEUTROPHILS # 2.5 10^3/uL (1.5-8.5); NEUTROPHILS % 49.7 % (36.0-66.0); PLATELET COUNT, AUTOMATED 229 10^3/uL (150-450)
[2024-10-03 07:28] LABS: ALT/SGPT 20.0 U/L (7.0-40); AST/SGOT 27.0 U/L (<34); CALCIUM LEVEL 8.8 MG/DL (8.3-10.6); CARBON DIOXIDE LEVEL 28.0 MMOL/L (20-31); CHLORIDE LEVEL 106.0 MMOL/L (98-107); CK-MB VALUE MASS 1.2 NG/ML (<3.6); CREATININE FOR GFR 0.9 MG/DL (0.70-1.30); GLOMERULAR FILTRATION RATE 88.5 (>42); MAGNESIUM LEVEL 2.3 MG/DL (1.8-2.4); POTASSIUM SERUM 4.0 MMOL/L (3.5-5.1); SODIUM LEVEL 143.0 MMOL/L (136-145)
[2024-10-03 07:30] LABS: FREE T4 0.98 NG/DL (0.89-1.76)
[2024-10-03 07:32] LABS: CPK CREATINE PHOSPHOKINASE 114.0 U/L (46-171); MB/CK RELATIVE INDEX 1.05 (< OR =4)
[2024-10-03 08:17] LABS: CK-MB VALUE MASS 1.3 NG/ML (<3.6)
[2024-10-03 08:23] LABS: CPK CREATINE PHOSPHOKINASE 103.0 U/L (46-171); MB/CK RELATIVE INDEX 1.26 (< OR =4)
[2024-10-03 08:59] VITALS: BP 137/68; TEMP 97.4; O2SAT 97
== END 2024-10-03 09:01 | disposition home or self-care (01) ==
LOC: M ED 05:21
DX: R06.02 Shortness of breath (principal); I44.4 Left anterior fascicular block; I48.91 Unspecified atrial fibrillation; I10 Essential (primary) hypertension; J44.9 Chronic obstructive pulmonary disease, unspecified; Z88.2 Allergy status to sulfonamides; Z88.5 Allergy status to narcotic agent; Z88.8 Allergy status to other drugs, medicaments and biological substances; Z91.011 Allergy to milk products; Z79.51 Long term (current) use of inhaled steroids; Z79.2 Long term (current) use of antibiotics; Z79.01 Long term (current) use of anticoagulants; Z79.899 Other long term (current) drug therapy

== ENCOUNTER → 2024-10-16 | Outpatient (CLI) | payer MEDICARE, MEDICAID ==
[~2024-10-16] MED LIST changes: +ISOVUE-370 76% 100 ML VIAL As Ordered ONE
== END ==
LOC: M RAD 12:23
PROVIDERS: ATTEND Family Medicine
DX: R91.8 Other nonspecific abnormal finding of lung field (principal)
CPT/HCPCS: 71260; Q9967

== ENCOUNTER → 2024-11-05 | Outpatient (CLI) | payer MEDICARE, MEDICAID ==
[~2024-11-05] MED LIST changes: -ISOVUE-370 76% 100 ML VIAL As Ordered ONE
== END ==
LOC: M RAD 09:48
PROVIDERS: ATTEND Nurse Practitioner Family
DX: N21.0 Calculus in bladder (principal)

== ENCOUNTER → 2024-11-10 | Outpatient (CLI) | payer MEDICARE, MEDICAID ==
[2024-11-10 13:00] LABS: ALT/SGPT 20.0 U/L (7.0-40); AST/SGOT 22.0 U/L (<34); BASO # 0.1 10^3/uL (0.0-0.2); BASO % 0.8 % (0.0-1.0); CALCIUM LEVEL 9.0 MG/DL (8.3-10.6); CARBON DIOXIDE LEVEL 29.0 MMOL/L (20-31); CHLORIDE LEVEL 104.0 MMOL/L (98-107); CHOLESTEROL LEVEL 134.0 MG/DL (<200); CHOLESTEROL RISK RATIO 2.3 (<5); CREATININE FOR GFR 0.98 MG/DL (0.70-1.30); EOS # 0.5 10^3/uL (0.0-0.5); EOS % 8.5 % (0.0-3.0); GLOMERULAR FILTRATION RATE 79.9 (>42); LDL CHOLESTEROL 61.7 MG/DL (<100); LYMPH # 1.5 10^3/uL (1.5-5.0); LYMPH % 24.6 % (24.0-44.0); MAGNESIUM LEVEL 2.1 MG/DL (1.8-2.4); MONO # 0.6 10^3/uL (0.0-0.8); MONO % 10.3 % (2.0-8.0); NEUTROPHILS # 3.5 10^3/uL (1.5-8.5); NEUTROPHILS % 55.6 % (36.0-66.0); NON-HDL-C 75.9 MG/DL; PLATELET COUNT, AUTOMATED 260 10^3/uL (150-450); POTASSIUM SERUM 4.0 MMOL/L (3.5-5.1); PSA SCREENING 2.8 NG/ML (< 4.00); SODIUM LEVEL 142.0 MMOL/L (136-145); TRIGLYCERIDES LEVEL 71.0 MG/DL (<150)
[2024-11-10 13:01] LABS: VITAMIN B12 LEVEL 431.0 PG/ML (211-911)
[2024-11-10 13:24] LABS: ESTIMATED AVERAGE GLUCOSE 120.0 MG/DL (60-110)
== END ==
LOC: M WUC 09:33
PROVIDERS: ATTEND Family Medicine
DX: E53.8 Deficiency of other specified B group vitamins (principal); E78.5 Hyperlipidemia, unspecified; I10 Essential (primary) hypertension; D50.9 Iron deficiency anemia, unspecified; R73.01 Impaired fasting glucose; Z12.5 Encounter for screening for malignant neoplasm of prostate
CPT/HCPCS: 36415; 80053; 80061; 82607; 82728; 83036; 83525; 83735; 83880; 85025; G0103

== ENCOUNTER 2024-12-15 19:37 | Emergency (ER) | payer MEDICARE, MEDICAID ==
[~2024-12-15] VITALS: Ht 165.1 cm; Wt 55.9 kg
[2024-12-15] MEDS ORDERED: CARB25TA9 (19:49)
[2024-12-15] MEDS ORDERED: ZITHTAB PO (22:54)
[2024-12-15] MEDS ORDERED: CEFD300C PO (22:54)
[2024-12-15] MEDS: CEFDINIR 300 MG CAP PO ONE (23:03)
[2024-12-15] MEDS: predniSONE 20 MG TAB PO ONE (23:03)
[2024-12-15 23:25] VITALS: BP 122/69; TEMP 99.5; O2SAT 96
== END 2024-12-15 23:25 | disposition home or self-care (01) ==
LOC: M ED 19:37
DX: J12.1 Respiratory syncytial virus pneumonia (principal); I48.91 Unspecified atrial fibrillation; I10 Essential (primary) hypertension; E78.5 Hyperlipidemia, unspecified; N40.0 Benign prostatic hyperplasia without lower urinary tract symptoms; Z88.2 Allergy status to sulfonamides; Z88.5 Allergy status to narcotic agent; Z88.8 Allergy status to other drugs, medicaments and biological substances; Z79.51 Long term (current) use of inhaled steroids; Z79.01 Long term (current) use of anticoagulants; Z79.2 Long term (current) use of antibiotics; Z79.899 Other long term (current) drug therapy
CPT/HCPCS: 71046; 87486; 87581; 87633; 87798; 99283; J7512

== ENCOUNTER → 2024-12-17 | Outpatient (POV) | payer MEDICARE, MEDICAID ==
[~2024-12-17] VITALS: Ht 170.2 cm; Wt 55.0 kg
[~2024-12-17] MED LIST changes: +CARB25TA9; +CEFD300C PO; +ZITHTAB PO
[2024-12-17 09:17] VITALS: BP 139/67; O2SAT 98
== END ==
LOC: M IRPOV 09:06
PROVIDERS: ATTEND Radiology Diagnostic Radiology
DX: N28.89 Other specified disorders of kidney and ureter (principal); R30.0 Dysuria; I48.91 Unspecified atrial fibrillation; Z87.891 Personal history of nicotine dependence; Z88.2 Allergy status to sulfonamides; Z88.5 Allergy status to narcotic agent; Z88.8 Allergy status to other drugs, medicaments and biological substances; Z91.0110 Allergy to milk products, unspecified; Z79.01 Long term (current) use of anticoagulants; Z79.2 Long term (current) use of antibiotics; Z79.51 Long term (current) use of inhaled steroids; Z79.899 Other long term (current) drug therapy; Z80.51 Family history of malignant neoplasm of kidney

== ENCOUNTER → 2025-02-04 | Outpatient (CLI) | payer MEDICARE, MEDICAID ==
[~2025-02-04] MED LIST changes: -CARB25TA9; +CARB25TA9 PO
[2025-02-04 13:38] LABS: BASO # 0.0 10^3/uL (0.0-0.2); BASO % 0.5 % (0.0-1.0); EOS # 0.3 10^3/uL (0.0-0.5); EOS % 4.5 % (0.0-3.0); LYMPH # 0.9 10^3/uL (1.5-5.0); LYMPH % 16.7 % (24.0-44.0); MONO # 0.7 10^3/uL (0.0-0.8); MONO % 12.4 % (2.0-8.0); NEUTROPHILS # 3.6 10^3/uL (1.5-8.5); NEUTROPHILS % 65.7 % (36.0-66.0); PLATELET COUNT, AUTOMATED 272 10^3/uL (150-450)
[2025-02-04 13:52] LABS: ESTIMATED AVERAGE GLUCOSE 120.0 MG/DL (60-110)
[2025-02-04 14:11] LABS: PSA SCREENING 2.36 NG/ML (< 4.00)
[2025-02-04 14:16] LABS: ALT/SGPT 73.0 U/L (7.0-40); AST/SGOT 47.0 U/L (<34); CALCIUM LEVEL 9.4 MG/DL (8.3-10.6); CARBON DIOXIDE LEVEL 32.0 MMOL/L (20-31); CHLORIDE LEVEL 105.0 MMOL/L (98-107); CHOLESTEROL LEVEL 116.0 MG/DL (<200); CHOLESTEROL RISK RATIO 2.07 (<5); CREATININE FOR GFR 0.96 MG/DL (0.70-1.30); GLOMERULAR FILTRATION RATE 81.9 (>42); LDL CHOLESTEROL 48.5 MG/DL (<100); MAGNESIUM LEVEL 2.2 MG/DL (1.8-2.4); NON-HDL-C 60.1 MG/DL; POTASSIUM SERUM 4.6 MMOL/L (3.5-5.1); SODIUM LEVEL 143.0 MMOL/L (136-145); TRIGLYCERIDES LEVEL 58.0 MG/DL (<150); VITAMIN B12 LEVEL 340.0 PG/ML (211-911)
[2025-02-04 14:39] LABS: INR 0.96
== END ==
LOC: M PLALAB 10:49
PROVIDERS: ATTEND Family Medicine
DX: Z01.818 Encounter for other preprocedural examination (principal); Z12.5 Encounter for screening for malignant neoplasm of prostate; I10 Essential (primary) hypertension; E78.5 Hyperlipidemia, unspecified; E53.8 Deficiency of other specified B group vitamins; R73.01 Impaired fasting glucose; D50.9 Iron deficiency anemia, unspecified
CPT/HCPCS: 36415; 80053; 80061; 82607; 82728; 83036; 83525; 83735; 83880; 85025; 85610; G0103